=== PATIENT | female | born 1960 | race Caucasian/White ===

== ENCOUNTER → 2018-01-11 10:22 | Outpatient (CLI) | payer MEDICAID, SELFPAY | PROVIDERS: Visit Provider Nurse Practitioner Family | DX: R10.9 Unspecified abdominal pain (principal) | CPT/HCPCS: 87086 ==

== ENCOUNTER → 2018-01-15 14:16 | Outpatient (REF) | payer MEDICAID, SELFPAY ==
[2018-01-15 18:22] LABS: Basophils # 0.1 K/mm3 (0-0.2); Basophils % 0.8 % (0.1-2.0); Eosinophils # 0.2 K/mm3 (0.0-0.4); Eosinophils % 1.9 % (0.1-12.0); Hematocrit 37.4 % (37.0-47.0); Lymphocytes # 2.9 K/mm3 (0.7-4.5); Lymphocytes % 35.1 K/mm3 (10-50); Mean Corpuscular HGB Conc 32.1 g/dL (31.8-35.4); Mean Corpuscular Hemoglobin 29.1 pg (27.0-31.2); Mean Corpuscular Volume 90.6 fl (81-99); Monocytes # 0.5 K/mm3 (0.1-1.0); Monocytes % 5.7 % (1.7-9.3); Neutrophils # 4.7 K/mm3 (1.8-7.8); Neutrophils % 56.6 % (37.0-80.0); Platelet Count 282 K/mm3 (142-424); Red Blood Count 4.13 M/mm3 (4.20-5.40); Red Cell Distribution Width 13.1 % (11.5-17.5); White Blood Count 8.4 K/mm3 (4.8-10.8)
[2018-01-15 18:23] LABS: Alanine Aminotransferase 28 U/L (12-78); Albumin Level 3.6 gm/dL (3.4-5.0); Alkaline Phosphatase 102 U/L (46-116); Amylase 48 U/L (25-125); Anion Gap 9.8 mEq/L (5-15); Aspartate Amino Transferase 11 U/L (15-37); Bilirubin,Total 0.2 mg/dL (0.2-1.0); Blood Urea Nitrogen 15 mg/dL (7-18); Calcium 9.1 mg/dL (8.5-10.1); Carbon Dioxide 34 mmol/L (21.0-32.0); Chloride 105 mmol/L (98-107); Creatinine,Serum 0.66 mg/dL (0.55-1.02); Estimated Glomerular Filt Rate 92 ml/min (>60); GFR (African American) 112 ML/MIN (>60); Globulin 3.6 gm/dl (1.3-3.2); Glucose 108 mg/dL (74-106); Lipase 154 u/L (73-393); Potassium 3.8 mmoL/L (3.5-5.1); Sodium 145 mmol/L (136-145); Total Protein,Serum 7.2 gm/dL (6.4-8.2)
== END ==
LOC: LAB 14:16
PROVIDERS: Visit Provider Emergency Medicine
DX: R10.9 Unspecified abdominal pain (principal)
CPT/HCPCS: 80053; 82150; 83690; 85025

== ENCOUNTER → 2018-06-03 17:55 | Outpatient (CLI) | payer MEDICAID, SELFPAY | PROVIDERS: Visit Provider Nurse Practitioner Family | DX: R30.9 Painful micturition, unspecified (principal) | CPT/HCPCS: 87086 ==

== ENCOUNTER → 2018-09-25 09:03 | Outpatient (CLI) | payer MEDICAID, SELFPAY ==
--- NOTE | 2018-09-25 09:04 | US_ITS ---
US abdomen complete HISTORY: ITS.REASON: abd pain ORDERING PHYSICIAN: Valencia Gutierrez APRN PATIENT AGE: 57 years COMPARISON: None FINDINGS: PANCREAS:Unremarkable. No obvious mass or abnormal fluid collection. No ductal dilatation LIVER:No focal liver lesions demonstrated. Homogeneous echogenicity. No intrahepatic biliary ductal dilatation evident RIGHT KIDNEY:Unremarkable. Normal size and echogenicity. No hydronephrosis LEFT KIDNEY:Unremarkable. No hydronephrosis. Normal size and echogenicity. GALLBLADDER:Postcholecystectomy change. Common bile duct is normal at 6 mm. AORTA:No evidence of aneurysmal dilatation. SPLEEN:Unremarkable. Normal size and echogenicity ASCITES:None demonstrated. IMPRESSION: Unremarkable abdominal ultrasound. Prior cholecystectomy
[2018-09-25 12:12] LABS: Basophils # 0.1 K/mm3 (0-0.2); Basophils % 0.6 % (0.1-2.0); Eosinophils # 0.2 K/mm3 (0.0-0.4); Eosinophils % 2.1 % (0.1-12.0); Hematocrit 42.5 % (37.0-47.0); Hemoglobin 13.6 g/dL (12.2-16.2); Lymphocytes # 2.4 K/mm3 (0.7-4.5); Lymphocytes % 30.7 % (10-50); Mean Corpuscular Hemoglobin 28.3 pg (27.0-31.2); Mean Corpuscular Volume 88.5 fl (81-99); Mean Platelet Volume 7.5 fl (7.4-10.4); Monocytes # 0.5 K/mm3 (0.1-1.0); Monocytes % 5.9 % (1.7-9.3); Neutrophils # 4.7 K/mm3 (1.8-7.8); Neutrophils % 60.7 % (37.0-80.0); Platelet Count 256 K/mm3 (142-424); Red Cell Distribution Width 13.1 % (11.5-17.5); White Blood Count 7.8 K/mm3 (4.8-10.8)
== END ==
PROVIDERS: PCP Nurse Practitioner Family; Visit Provider Nurse Practitioner Family
DX: R10.9 Unspecified abdominal pain (principal); R19.7 Diarrhea, unspecified
CPT/HCPCS: 36415; 76700; 85025

== ENCOUNTER → 2018-12-30 09:47 | Outpatient (CLI) | payer MEDICAID, SELFPAY ==
--- NOTE | 2018-12-30 10:09 | XR_ITS ---
PROCEDURE: XR SHOULDER RT MIN 2V CLINICAL INDICATION: pain Right shoulder pain COMPARISON: [id number] VIEWS from 05/21/2015 FINDINGS: No fracture, dislocation, lytic change, or blastic change evident. No significant degenerative change IMPRESSION: No acute findings. Dictated by: Shady Gagnon MD 12/30/2018 12:45 Electronically signed by Shady Gagnon MD in [place] 12/30/2018 12:45
--- NOTE | 2018-12-30 10:09 | XR_ITS ---
PROCEDURE: XR CERVICAL SPINE 2V CLINICAL INDICATION: pain, right neck and shoulder pain COMPARISON: No exams were available for comparison FINDINGS: There is minimal anterolisthesis of C4 on C5 of approximately 1-2 mm. The disc spaces are well preserved. There is narrowing of the foramen on the right at C4-C5 from facet and uncovertebral hypertrophy there is mild right-sided foraminal narrowing at C3-C4. no fracture or dislocation. No lytic or blastic change. Facet hypertrophic changes are present at C4-5 and 6. There is some mild left-sided carotid calcification IMPRESSION: Mild cervical spondylosis with right-sided foraminal narrowing at C4-C5 and to lesser degree at C3-C4 Dictated by: Shady Gagnon MD 12/30/2018 12:45 Electronically signed by Shady Gagnon MD in [place] 12/30/2018 12:45
== END ==
PROVIDERS: PCP Emergency Medicine; Visit Provider Nurse Practitioner Family
DX: M25.511 Pain in right shoulder (principal); M54.2 Cervicalgia
CPT/HCPCS: 72040; 73030

== ENCOUNTER → 2018-12-30 11:20 | Outpatient (CLI) | payer MEDICAID, SELFPAY ==
[2018-12-30 13:01] LABS: Free T4 (Free Thyroxine) 0.91 ng/dl (0.76-1.46); Thyroid Stimulating Hormone 1.32 uIU/ml (0.358-3.740)
[2018-12-31 06:51] LABS: Vitamin D 25 Hydroxy 22.5 ng/mL (30.0-100.0)
== END ==
PROVIDERS: Visit Provider Nurse Practitioner Family
DX: M25.511 Pain in right shoulder (principal); M54.2 Cervicalgia; M79.671 Pain in right foot; M79.672 Pain in left foot; R07.9 Chest pain, unspecified; E55.9 Vitamin D deficiency, unspecified; Z79.899 Other long term (current) drug therapy
CPT/HCPCS: 36415; 82652; 84439; 84443

== ENCOUNTER → 2019-01-13 10:12 | Outpatient (CLI) | payer MEDICAID, SELFPAY ==
[2019-01-13 14:50] LABS: C-Reactive Protein 0.6 mg/dL (0.0-0.9)
[2019-01-13 15:34] LABS: Erythrocyte Sedimentation Rate 27 mm/hr (0-30)
[2019-01-14 07:08] LABS: RA Latex Turbid. <10.0 IU/mL (0.0-13.9)
[2019-01-14 13:17] LABS: Anti-Centromere B Antibodies <0.2 AI (0.0-0.9); Anti-Jo-1 <0.2 AI (0.0-0.9); Anti-Smith Antibody <0.2 AI (0.0-0.9); Antichromatin Antibodies 0.3 AI (0.0-0.9); Antiscleroderma-70 Antibodies <0.2 AI (0.0-0.9); RNP Antibodies <0.2 AI (0.0-0.9); Sjogren's Anti-SS-A <0.2 AI (0.0-0.9); Sjogren's Anti-SS-B <0.2 AI (0.0-0.9)
[2019-01-14 15:14] LABS: PTT-LA 36.2 sec (0.0-51.9); dRVVT 36.6 sec (0.0-47.0)
[2019-01-16 06:10] LABS: Anti-DNA (DS) Ab Qn <1 IU/mL (0-9)
[2019-01-16 06:11] LABS: Anti-Cyclic Citrullinated Pept 10 units (0-19); Lupus Reflex Interpretation Comment: (.)
== END ==
PROVIDERS: Visit Provider Nurse Practitioner Family
DX: M25.511 Pain in right shoulder (principal)
CPT/HCPCS: 36415; 85613; 85651; 86140; 86200; 86225; 86235; 86431

== ENCOUNTER → 2019-01-28 13:28 | Outpatient (CLI) | payer MEDICAID, SELFPAY ==
--- NOTE | 2019-01-28 13:30 | CA_ITS ---
APPROVED REPORT EXAM: Comprehensive 2D, Doppler, and color-flow Echocardiogram Exercise Science Internship: Liss Justice RDCS Ht: 5 ft 7 in Wt: 264lbs BSA: 2.28 BP: 132/77 mmHg Indications: Chest Pain, Hypertension/HDD 2D Dimensions LVOT 2.00 cm (M/F) 1.5-2.5 M-Mode Dimensions RVDd 1.80 cm (0.9-2.6) LA Diam 3.20 cm (1.9-4.0) LVDd 5.90 cm (3.5-5.7) Ao Diam 3.20 cm (2.0-3.7) LVDs 4.50 cm (3.5-5.7) AV Cusp 1.60 cm (1.5-2.6) IVSd 0.90 cm (0.6-1.1) PWd 1.00 cm (0.6-1.1) EF (Teich) 46.60% FS 23.70% EDV (Teich) 173.00 mL ESV (Teich) 92.40 mL LV Diastology E/A Ratio 1.0 MED E' 7.51 (< 7 cm/sec) E'/MED E' Ratio 10.30 (>14) LAT E' 12.60 (<10 cm/sec) E/LAT E' Ratio 6.20 (>14) Mitral Valve MV E Max Warren. 77.50 (40-130 cm/s) MV A Velocity 77.00 (40-130 cm/s) E/A Ratio 1.00 Tricuspid Valve TR P. Velocity 234.00 cm/s RAP Estimate 10.00 mmHg RVSP 32.00 mmHg Left Ventricle Left atrium is mildly enlarged, left ventricle is normal size, mild concentric left ventricular hypertrophy, visually estimated ejection fraction 55% with no regional wall motion abnormality. Grade 1 diastolic dysfunction seen without tissue Doppler evidence of raise left atrial pressure. Right Ventricle Right atrium and right ventricle are normal size and contractility. Aortic Valve Aortic valve is minimally thickened and fibrosed. There is no aortic stenosis aortic insufficiency. Mitral Valve Mitral valve is grossly normal, there is mild mitral regurgitation. Tricuspid Valve Tricuspid valve is grossly normal, there is mild tricuspid regurgitation. Pulmonic Valve Pulmonic valve is poorly visualized. Great Vessels Aortic root is normal size. Pericardium No significant pericardial effusion noted. Conclusion 1. Mildly enlarged left atrium, normal left ventricular size, mild concentric left ventricular hypertrophy, visually estimated ejection fraction 55% with no regional wall motion abnormality, grade 1 diastolic dysfunction seen without tissue Doppler evidence of raise left atrial pressure. 2. Mild mitral and tricuspid regurgitation 3. No significant pericardial effusion noted. Electronically signed by : [place], 01/29/2019 06:20:10
== END ==
PROVIDERS: PCP Emergency Medicine; Visit Provider Urology
DX: R07.89 Other chest pain (principal); I10 Essential (primary) hypertension
CPT/HCPCS: 93306

== ENCOUNTER → 2019-02-28 09:15 | Outpatient (CLI) | payer MEDICAID, SELFPAY ==
--- NOTE | 2019-02-28 09:16 | CA_ITS ---
APPROVED REPORT Exam: Exercise Treadmill Technologist: jaison feliciano, Ht: 5 ft 7 in Wt: 260 lbs BSA: 2.26 m2 HR: 58 bpm BP: 118/68 mmHg Rhythm: NSR,INFERIOR Q WAVES Indications: CP Medical History Medical History: HTN Medications: Propranolol,,,,, ZanTAC,,,,, Sumatriptan,,,,, Vit D2,,,,, OSEltamivir,,,,, Allergies: HYDROCODONE,PCN Cardiac Risk Factors: HTN Stress Test Details Test: Dk HR Resting HR: 64 bpm Max Heart Rate (APMHR): 162 bpm Max HR Achieved: 166 bpm Target HR (85% APMHR): 137 bpm % of APMHR: 102 Recovery HR: 85 bpm BP Resting BP: 118.0/68.0 mmHg Max BP: 138.0/77.0 mmHg Recovery BP: 174.0/84.0 mmHg ECG Resting ECG: NSR,INFERIOR Q WAVES Clinical Reason for Termination: Dyspnea Exercise duration: 06:00 min Highest Stage Achieved: Exercise capacity: 7.0 METs Stress ECG Conclusion EXERCISED 6:00 ONBRUCE PROTOCOL WITH MAX HEART RATE OF 138 WHICH IS 100% OF PM FOR AGE. METS + 7.0. NO CHEST PAIN. [address]-T CHANGES. NEGATIVE TEST. Electronically signed by : [place], 03/01/2019 12:04:49
== END ==
PROVIDERS: PCP Emergency Medicine; Visit Provider Physician Assistant
DX: R07.89 Other chest pain (principal); I10 Essential (primary) hypertension
CPT/HCPCS: 93017

== ENCOUNTER 2020-01-25 15:51 | Emergency (ER) | payer MEDICAID, SELFPAY ==
[2020-01-25 16:22] VITALS: BP 120/78; PULSE 66; RESP 19; TEMP 36.9; O2SAT 99; BMI 41.1
[2020-01-25 16:32] LABS: Apearance,Urine Clear (Clear); Color,Urine Yellow (Yellow); PH,Urine 5.5 (5.0-8.5)
[2020-01-25 16:33] LABS: Bilirubin,Urine Negative (Negative); Blood, Urine Negative (Negative); Glucose,Urine (UA) Negative (Negative); Ketones,Urine Negative (Negative); Protein,Urine Negative (Negative); UTC Leukocyte Esterase,Urine Negative (Negative); UTC Nitrate,Urine Negative (Negative); Urobilinogen,Urine 0.2 EU/dl (0.2)
--- NOTE | 2020-01-25 16:54 | HMH.EDUTC ---
[facility] [facility] [place] Clinical Impression: Colitis Abdominal pain Qualifiers: Abdominal location: unspecified location Qualified Code(s): R10.9 - Unspecified abdominal pain Disposition: Home, Self-Care Condition on Discharge: Good Instructions: DI for Colitis Additional Instructions: Follow up with Dr. Lagos tomorrow as discussed. Return for any problems. GO TO THE ER FOR ANY WORSENING SYMPTOMS OR CONCERNS Prescriptions: Ondansetron [Zofran 4mg ODT] 4 mg PO Q8HP PRN #20 tab.rapdis PRN Reason: Nausea Transmission Status: Received by Mad Mimi # Ciprofloxacin HCl [Ciprofloxacin 250mg Tab] 250 mg PO BID 10 Days #20 tab Transmission Status: Received by Mad Mimi # metroNIDAZOLE [Metronidazole] 250 mg PO BID 10 Days #20 tab Transmission Status: Received by Mad Mimi # Referrals: Jerod Lagos MD [Primary Care Provider] - Time of Disposition: 17:36 Medical Decision Making - Medical Records Medical records reviewed: No: I reviewed the patient's medical records. - Olu Inquiry Pt receiving controlled substance: No Vital Signs: 01/25/20 16:22 01/25/20 17:35 Temperature 98.4 F 98.4 F Temperature Source Oral Pulse Rate 66 Pulse Rate [Right Brachial] 66 Respiratory Rate 19 19 Blood Pressure 120/78 Blood Pressure [Right Arm] 120/78 Blood Pressure Mean [Right Arm] 92 Blood Pressure Source [Right Arm] Automatic Cuff Blood Pressure Position [Right Arm] Sitting 02 Sat by Pulse Oximetry 99 Oxygen Delivery Method Room Air - Lab Data Lab results reviewed: Yes: I reviewed the patient's lab results. Lab Results 01/25/20 15:57: Urine Color Yellow, Urine Appearance Clear, Urine pH 5.5, Ur Specific [place] 1.010, Urine Protein Negative, Urine Glucose (UA) Negative, Urine Ketones Negative, Urine Blood Negative, Urine Nitrate Negative, Urine Bilirubin Negative, Urine Urobilinogen 0.2, Ur Leukocyte Esterase Negative [facility] [place] - General Stated complaint: possible uti Time Seen by Provider: 01/25/20 16:30 Mode of Arrival: Ambulatory Source of Information: Patient Limitations: No Limitations Description of Symptoms (Recalled from Triage Doc. by RN): PATIENT C/O DIARRHEA AND FREQUENT URINATION X 2 DAYS HEENT Symptoms (Recalled from RN notes): No Resp Symptoms (Recalled from RN notes): No Skin Symptoms (Recalled from RN notes): No MS Symptoms (Recalled from RN notes): No Functional Status (Recalled from RN notes): WNL - History of Present Illness Provider Complaint: She c/o lower abdominal pain and low back pain since yesterday. - Related Data Previous Rx's Medication Instructions Recorded Fluticasone Propionate [Flonase 2 spr NS DAILY #1 bottle 05/30/18 50mcg nasal spray 16gm] cetirizine 10 mg capsule 10 mg PO DAILY #30 cap 05/31/18 angcmmezozsqtyx-xtuqbpaofroepsc-BA 10 ml PO Q4-6H PRN #200 ml 05/16/19 2 mg-30 mg-10 mg/5 mL oral syrup ranitidine HCl 150 mg tablet 150 mg PO DAILY #90 tab 07/09/19 albuterol sulfate 90 mcg/actuation 1 puff INHALATION Q4-6H PRN #18 g 09/03/19 aerosol inhaler ergocalciferol (vitamin D2) 1,250 See Rx Instructions .ROUTE 09/03/19 mcg (50,000 unit) capsule .COMPLEX #4 cap propranolol 60 mg capsule,24 60 mg PO DAILY #90 cap 09/03/19 hr,extended release sumatriptan succinate 50 mg tablet 50 mg PO DAILY PRN #10 tab 09/03/19 albuterol sulfate 2.5 mg INHALATION NEEDED PRN 09/23/19 #180 ml vitamin-ferrous fumarate 1 tab PO DAILY #90 tab 09/23/19 28 mg iron-folic acid 800 mcg tablet Ciprofloxacin HCl [Ciprofloxacin 250 mg PO BID 10 Days #20 tab 01/25/20 250mg Tab] Ondansetron [Zofran 4mg ODT] 4 mg PO Q8HP PRN #20 tab.rapdis 01/25/20 metroNIDAZOLE [Metronidazole] 250 mg PO BID 10 Days #20 tab 01/25/20 Allergies Allergy/AdvReac Type Severity Reaction Status Date / Time hydrocodone [HYDROCODONE] Allergy Unknown Verified 05/16/19 11:15 Penicillins [PENICILLINS] Allergy
[2020-01-25 17:35] VITALS: BP 120/78; PULSE 66; RESP 19; TEMP 36.9; O2SAT 99
== END 2020-01-25 17:38 | disposition home or self-care (01) ==
PROVIDERS: Emergency Provider Nurse Practitioner Family; PCP Emergency Medicine
DX: K52.9 Noninfective gastroenteritis and colitis, unspecified (principal); G43.709 Chronic migraine without aura, not intractable, without status migrainosus; F41.8 Other specified anxiety disorders; K21.9 Gastro-esophageal reflux disease without esophagitis; I10 Essential (primary) hypertension; Z87.442 Personal history of urinary calculi; Z88.0 Allergy status to penicillin; Z88.5 Allergy status to narcotic agent; Z79.899 Other long term (current) drug therapy; Z90.49 Acquired absence of other specified parts of digestive tract
CPT/HCPCS: 81003; 99201

== ENCOUNTER → 2020-02-03 13:53 | Outpatient (CLI) | payer MEDICAID, SELFPAY ==
[2020-02-03 15:41] LABS: Anion Gap 12.4 mEq/L (5-15); Blood Urea Nitrogen 13 mg/dl (7-17); Calcium 9.3 mg/dl (8.4-10.2); Carbon Dioxide 32 mmol/L (22.0-30.0); Chloride 101 mmol/L (98-107); Estimated Glomerular Filt Rate 102 ml/min (>60); GFR (African American) 124 ML/MIN (>60); Glucose 96 mg/dl (74-100); Potassium 4.4 mmoL/L (3.5-5.1); Sodium 141 mmol/L (136-145)
== END ==
PROVIDERS: Visit Provider Nurse Practitioner Family
DX: Z01.818 Encounter for other preprocedural examination (principal)
CPT/HCPCS: 36415; 80048

== ENCOUNTER → 2020-02-04 09:13 | Outpatient (CLI) | payer MEDICAID, SELFPAY ==
--- NOTE | 2020-02-04 09:22 | CT_ITS ---
PROCEDURE: CT ABDOMEN PELVIS WO CON CLINICAL INDICATION: Abd pain Left-sided abdominal pain COMPARISON: No exams were available for comparison TECHNIQUE: Axial images obtained with sagittal and coronal reformats. All CT scans at the facility use one or more dose reduction, viz: automated exposure control, ma/kV adjustment per patient size (including targeted exams where dose is matched to indication, i.e. head), or iterative reconstruction technique. FINDINGS: LOWER THORAX: No acute finding ABDOMEN & PELVIS: Prior cholecystectomy. Small hiatal hernia. The spleen, adrenal glands, and pancreas have an unremarkable appearance. There is increased soft tissue density in the fundal region of the stomach posteriorly. While this could be due to nondistention, 1 cannot exclude the possibility of a mass at this area. Upper endoscopy or upper GI may provide further evaluation No renal or ureteral calculi. No hydronephrosis. No intestinal obstruction or free air. There is a small umbilical hernia containing fat. Suspect postsurgical changes anterior abdominal wall. There is some stranding of the fat just beneath the hernia within the anterior abdominal area which is nonspecific. There is diverticulosis of the colon. There is some minimal haziness of the pericolic fat in the pelvic region. This is nonspecific but could be seen with some mild diverticulitis although no obvious colonic wall thickening is evident. Exam is somewhat limited without IV and oral contrast. The uterus is anteverted. Degenerative changes are present in the lumbar spine. IMPRESSION: 1. Colonic diverticulosis with mild stranding of the pericolic fat in the pelvic region. Mild diverticulitis is a consideration. 2. Small umbilical hernia containing fat with suspected postsurgical changes of the anterior abdominal wall. Minimal stranding of the fat just beneath the anterior abdominal wall at the umbilical area. 3. Slight increased soft tissue density in the fundal region of the stomach possibly due to nondistention versus fundal mass. Upper endoscopy or upper GI recommended for further evaluation. Dictated by: Shady Gagnon MD 02/05/2020 07:38 Shady Gagnon MD in [place] 02/05/2020 07:38
== END ==
PROVIDERS: PCP Emergency Medicine; Visit Provider Nurse Practitioner Family
DX: R10.9 Unspecified abdominal pain (principal)
CPT/HCPCS: 74176

== ENCOUNTER → 2020-04-18 16:05 | Outpatient (CLI) | payer MEDICAID, SELFPAY ==
[2020-04-18 16:49] LABS: Basophils # 0.1 K/mm3 (0-0.2); Basophils % 0.8 % (0.1-2.0); Eosinophils # 0.2 K/mm3 (0.0-0.4); Eosinophils % 2.3 % (0.1-12.0); Hematocrit 42.2 % (37.0-47.0); Lymphocytes # 2.9 K/mm3 (0.7-4.5); Lymphocytes % 32.4 % (10-50); Mean Corpuscular HGB Conc 33.1 g/dL (31.8-35.4); Mean Corpuscular Hemoglobin 29.8 pg (27.0-31.2); Mean Corpuscular Volume 89.8 fl (81-99); Mean Platelet Volume 7.8 fl (7.4-10.4); Monocytes # 0.4 K/mm3 (0.1-1.0); Monocytes % 4.2 % (1.7-9.3); Neutrophils # 5.4 K/mm3 (1.8-7.8); Neutrophils % 60.3 % (37.0-80.0); Platelet Count 303 K/mm3 (142-424); White Blood Count 8.9 K/mm3 (4.8-10.8)
[2020-04-19 09:53] LABS: Coronavirus 19 IgG Antibody Negative (Negative); Coronavirus 19 IgM Antibody Negative (Negative)
== END ==
PROVIDERS: Internal Medicine Gastroenterology; PCP Family Medicine; Visit Provider Family Medicine
DX: Z01.812 Encounter for preprocedural laboratory examination (principal); Z11.52 Encounter for screening for COVID-19; Z13.810 Encounter for screening for upper gastrointestinal disorder; R10.9 Unspecified abdominal pain
CPT/HCPCS: 36415; 85025; 86328

== ENCOUNTER 2020-04-19 09:01 | Day surgery (SDC) | payer MEDICAID, SELFPAY ==
[2020-04-19 09:30] VITALS: BP 146/68; PULSE 63; RESP 18; TEMP 36.3; O2SAT 99; BMI 41.5
[2020-04-19 10:15] VITALS: O2SAT 97
--- NOTE | 2020-04-19 10:18 | P.PN_ITS ---
[facility] Anesthesia Checklist - Patient Identification Patient Identification: Arm Band - Structural Data Admitted From: Home Planned Operative Procedure/s: egd Consent for Planned Operative Procedure(s) Verified: Yes Verified Documents: Surgical Consent, History and Physical - NPO Status Verified Time NPO: 00:00 - Additional verifications Anesthesia Reactions: No - Airway Assessment C-Spine Mobility Assessed: Yes (mp2) TMJ Mobility Assessed: Yes Dentition: Good Dentition - Neurological Assessment Level of Consciousness: Awake, Alert - Anesthesia Plan Anesthesia Risk discussed: Yes Anesthesia Plan: Verified ASA Class: II Anesthesia Type: MAC [facility] History I have reviewed the patient's past medical history: Yes Medical History: Reports:: Anxiety, Asthma, Depression, Gastroesophageal Reflux Disease(GERD), Hypertension, Kidney Stones, Migraine Denies:: Cancer, Diabetes Mellitus Type 1, Diabetes Mellitus Type 2, Internal Pacemaker, MRSA, Seizures *Have you ever received a pneumonia vaccine?: No *Have you received a flu vaccine this season?: No Other Medical History: Reports: Arthritis Anesthesia experience/problems:: nac Other Surgeries: Yes: Cholecystectomy, , Hernia Repair. No: Pacemaker Amputation: No Fractures: Yes - *Social History Last grade of school completed: High school graduate Smoking Status: Never smoker Alcohol Intake: never Substance Use Type: denies use *Occupational Status:: unemployed Housing: house Household Members: spouse *Travel in the last 8 weeks: None - Psychiatric History Pschychiatric History:: Reports:: Anxiety, Depression Family Hx:: Asthma, Heart Attack
--- NOTE | 2020-04-19 10:34 | P.PCN_ITS ---
[facility] Procedure Note Procedure Note:: Upper Endoscopy Procedure Report: Esophagogastroduodenoscopy with cold biopsies and TTS balloon dilation Endoscopost: Osmin Arceo II, MD Referring Physician: ROCK Molina/Andrew Hwang MD Date of Procedure: April 19, 2020 Equipment: Olympus GIF 180 standard upper endoscope Sedation: MAC sedation Indications: Mrs. Guajardo is a 59-year-old female with epigastric abdominal pain and discomfort. She has had some gassiness and belching. She reports minor nausea and some early satiety. She has rare dysphagia. The patient did have a CT scan of the abdomen and pelvis on February 05, 2020. There was a small umbilical hernia containing fat. There was also a slightly increased soft tiss ue density in the fundal region of the stomach possibly secondary to nondistention versus mass. The patient reports no melena or weight loss. She has chronic heartburn but does not take PPI therapy. She does report some bowel irregularity with diarrhea that alternates to regular. She had some bright red rectal bleeding a month ago and does report some occasional hemorrhoid bleeding. She has never had upper endoscopy or colonoscopy. Procedure: Prior to the procedure, a history and physical exam was performed, and patient's medications and allergies were reviewed. The risks, benefits and alternatives of the sedation and procedure were discussed with the patient. All questions were answered and informed consent was obtained. The patient was brought to the procedure room. Patient identification and proposed procedure were verified by the physician and the nurse. The patient was placed in a left lateral decubitus position and the scope was passed under direct vision. Throughout the procedure, the patient's blood pressure, pulse, and oxygen saturations were monitored continuously. The upper GI endoscopy was accomplished without difficulty. The patient tolerated the procedure well. Findings: The scope was passed directly into the upper esophagus and advanced to the third portion of the duodenum. The post bulbar duodenum was primarily normal. There was some scalloping of the conniventes and cold biopsies were obtained. The bulb and pylorus were normal. The scope was then withdrawn into the stomach. There was some linear reactive gastropathy of the antrum and body of the stomach. The remainder of the antrum, body and fundus of the stomach were grossly normal. Upon retroflexion there was a medium size 2 to 3 cm hiatal hernia. 2 biopsies were taken in the antrum and along the lesser curvature for histology to rule out gastritis and/or H pylori. The scope was then withdrawn into the esophagus. There was grade A (LA classification) reflux esophagitis. There were tertiary contractions and evidence of moderate esophageal dysmotility. The entire esophagus was dilated to 60 Green[place]/20 mm with a TTS hydrostatic balloon. The remainder of the esophageal mucosa was normal. Impression: 1. Grade A reflux esophagitis (LA classification) with moderate esophageal dysmotility and medium size 2 to 3 cm hiatal hernia (sliding) 2. Linear reactive gastropathy Plan: I will follow-up the biopsies. The patient does have functional dyspepsia. We will discuss additional treatment options.
[2020-04-19 10:35] VITALS: BP 112/71; PULSE 67; RESP 18; TEMP 36.3; O2SAT 94
[2020-04-19 10:45] VITALS: BP 114/73; PULSE 59; RESP 18; O2SAT 97
[2020-04-19 10:55] VITALS: BP 99/62; PULSE 58; RESP 18; O2SAT 96
[2020-04-19 11:14] VITALS: BP 131/89; PULSE 56; RESP 18; O2SAT 100
== END 2020-04-19 11:31 | disposition home or self-care (01) ==
PROVIDERS: PCP Emergency Medicine; Visit Provider Internal Medicine Gastroenterology
PROC: 0DJ08ZZ Inspection of Upper Intestinal Tract, Via Natural or Artificial Opening Endoscopic (ICD-10-PCS; CPT 43235; principal; 2020-04-19 10:30)
DX: K21.9 Gastro-esophageal reflux disease without esophagitis; K22.4 Dyskinesia of esophagus; K44.9 Diaphragmatic hernia without obstruction or gangrene; K31.9 Disease of stomach and duodenum, unspecified; K30 Functional dyspepsia; I10 Essential (primary) hypertension; J45.909 Unspecified asthma, uncomplicated; Z88.6 Allergy status to analgesic agent; Z88.0 Allergy status to penicillin
CPT/HCPCS: 43239; 43249; C1726

== ENCOUNTER 2020-10-25 00:08 | Emergency (ER) | payer MEDICAID, SELFPAY ==
[2020-10-25 00:36] VITALS: BP 125/77; PULSE 76; RESP 20; TEMP 36.8; O2SAT 97; BMI 41.5
--- NOTE | 2020-10-25 00:49 | CT_ITS ---
PROCEDURE INFORMATION: Exam: CT Abdomen And Pelvis With Contrast Exam date and time: 10/25/2020 12:49 AM Age: 59 years old Clinical indication: Abdominal pain; Localized; Patient HX: Lower abd pain with radiating to left side, diarrhea for 5 days, PT noticed some blood in toilet today TECHNIQUE: Imaging protocol: Computed tomography of the abdomen and pelvis with contrast. Radiation optimization: All CT scans at this facility use at least one of these dose optimization techniques: automated exposure control; mA and/or kV adjustment per patient size (includes targeted exams where dose is matched to clinical indication); or iterative reconstruction. Contrast material: ISOVUE; Contrast volume: 75 ml; Contrast route: IV; COMPARISON: CT ABDOMEN PELVIS WO CON 02/04/2020 10:20 AM FINDINGS: Mediastinal space: Small-sized hiatal hernia. Liver: Normal. Gallbladder and bile ducts: Gallbladder surgically absent. Pancreas: Normal. Spleen: Normal. Adrenal glands: Normal. No mass. Kidneys and ureters: Normal. Stomach and bowel: Colonic diverticulosis, with acute diverticulitis involving the mid and distal sigmoid colon, where there is mild wall thickening and adjacent associated inflammatory stranding. No perforation or abscess. Appendix: No evidence of appendicitis. Intraperitoneal space: Unremarkable. No free air. No significant fluid collection. Vasculature: Phleboliths within the pelvis. Lymph nodes: Unremarkable. No enlarged lymph nodes. Urinary bladder: Unremarkable as visualized. Reproductive: Uterus is surgically absent. Bones/joints: Multilevel thoracolumbar spine degenerative disc space narrowing and osteophyte formation. Soft tissues: Small fat containing periumbilical hernia. Small bilateral fat containing inguinal hernias. IMPRESSION: Colonic diverticulosis, with acute diverticulitis involving the mid and distal sigmoid colon, where there is mild wall thickening and adjacent associated inflammatory stranding. No perforation or abscess.
[2020-10-25 01:03] LABS: Basophils # 0.1 K/mm3 (0-0.2); Basophils % 0.7 % (0.1-2.0); Eosinophils # 0.1 K/mm3 (0.0-0.4); Eosinophils % 1.3 % (0.1-12.0); Hematocrit 37.6 % (37.0-47.0); Hemoglobin 12.5 g/dL (12.2-16.2); Mean Corpuscular HGB Conc 33.3 g/dL (31.8-35.4); Mean Corpuscular Hemoglobin 28.8 pg (27.0-31.2); Mean Corpuscular Volume 86.5 fl (81-99); Mean Platelet Volume 7.5 fl (7.4-10.4); Monocytes # 0.6 K/mm3 (0.1-1.0); Monocytes % 5.9 % (1.7-9.3); Neutrophils # 5.8 K/mm3 (1.8-7.8); Neutrophils % 61.2 % (37.0-80.0); Platelet Count 227 K/mm3 (142-424); Red Blood Count 4.35 M/mm3 (4.20-5.40); Red Cell Distribution Width 13.9 % (11.5-17.5); White Blood Count 9.5 K/mm3 (4.8-10.8)
[2020-10-25 01:08] LABS: Alanine Aminotransferase 28 U/L (12-78); Albumin Level 4.3 g/dl (3.5-5.0); Albumin/Globulin Ratio 1.3 (1.1-1.8); Alkaline Phosphatase 78 U/L (38-126); Amylase 68 U/L (30-110); Anion Gap 12.5 mEq/L (5-15); Aspartate Amino Transferase 37 U/L (14-36); Bilirubin,Total 0.3 mg/dl (0.2-1.3); Blood Urea Nitrogen 14 mg/dl (7-17); Calcium 8.9 mg/dl (8.4-10.2); Carbon Dioxide 32 mmol/L (22.0-30.0); Chloride 101 mmol/L (98-107); Creatinine Clearance Estimated 74 mL/min (50-200); Estimated Glomerular Filt Rate 73 ml/min (>60); GFR (African American) 89 ML/MIN (>60); Globulin 3.2 g/dL (1.3-3.2); Glucose 113 mg/dl (74-100); Lipase 176 U/L (23-300); Potassium 3.5 mmoL/L (3.5-5.1); Sodium 142 mmol/L (136-145); Total Protein,Serum 7.5 g/dl (6.3-8.2)
[2020-10-25 01:15] LABS: C-Reactive Protein 28.3 mg/L (0-4)
[2020-10-25 01:24] VITALS: BP 145/77; PULSE 71; O2SAT 96
[2020-10-25 01:28] LABS: Procalcitonin 0.056 ng/mL (0.0-2.0)
[2020-10-25 01:31] LABS: Microscopic, Urine URINE MICROSCOPIC (MICROSCOPIC)
[2020-10-25 01:51] LABS: Appearance,Urine CLEAR (Clear); Bilirubin,Urine Negative (Negative); Blood, Urine 2+ (Negative); Color,Urine STRAW (Yellow); Glucose,Urine (UA) Negative (Negative); Ketones,Urine Negative (Negative); Leukocyte Esterase,Urine 1+ (Negative); Nitrate,Urine Negative (Negative); PH,Urine 6.5 (5.0-8.5); Protein,Urine Negative (Negative); Specific Gravity, Urine <= 1.005 (1.005-1.030); Urobilinogen,Urine 0.2 EU/dl (0.2)
[2020-10-25 01:52] LABS: Erythrocyte Sedimentation Rate 39 mm/hr (0-30)
[2020-10-25 01:59] LABS: Bacteria,Urine Trace /lpf; RBC,Urine Occasional #/hpf (0-3); Squamous Epithelial Cell,Urine Occasional #/hpf (0-5)
[2020-10-25 02:00] VITALS: BP 137/84; PULSE 72; O2SAT 98
--- NOTE | 2020-10-25 02:20 | HMH.EDNVD ---
ED Disposition Clinical Impression: Diverticulitis Disposition: Home, Self-Care Condition on Discharge: Good Instructions: DI for Diverticulitis Additional Instructions: use meds and see pcp for follow up Prescriptions: levoFLOXacin [Levaquin 500mg tab] 500 mg PO DAILY #10 tab Transmission Status: Pending to [facility] # metroNIDAZOLE [metroNIDAZOLE 500mg Tablet] 500 mg PO TID #30 tab Transmission Status: Pending to [facility] # Referrals: Jerod Lagos MD [Primary Care Provider] - - Critical Care Critical Care Time: No Attestation: On 10/25/20, the high probability of a clinically significant, sudden or life threatening deterioration of the following system(s) required my full and direct attention, intervention and personal management. The time I documented below is in addition to time spent performing reported procedures but includes the following listed in this critical care notation. Medical Decision Making - Medical Records Medical records reviewed: Yes: I reviewed the patient's medical records. - Olu Inquiry Pt receiving controlled substance: No Vital Signs: 10/25/20 00:36 10/25/20 01:24 10/25/20 02:00 Temperature 98.2 F Temperature Source Oral Pulse Rate 71 72 Pulse Rate [Right] 76 Respiratory Rate 20 Blood Pressure 145/77 H 137/84 Blood Pressure [Right Arm] 125/77 Blood Pressure Mean [Right Arm] 93 02 Sat by Pulse Oximetry 97 96 98 Oxygen Delivery Method Room Air 10/25/20 02:31 Temperature Temperature Source Pulse Rate 71 Pulse Rate [Right] Respiratory Rate Blood Pressure 130/72 Blood Pressure [Right Arm] Blood Pressure Mean [Right Arm] 02 Sat by Pulse Oximetry 100 Oxygen Delivery Method - Lab Data Lab results reviewed: Yes: I reviewed the patient's lab results. Lab Results 10/25/20 00:30: WBC 9.5, RBC 4.35, Hgb 12.5, Hct 37.6, MCV 86.5, MCH 28.8, MCHC 33.3, RDW 13.9, Plt Count 227, MPV 7.5, Neut % (Auto) 61.2, Lymph % (Auto) 31.0, [place] % (Auto) 5.9, Eos % (Auto) 1.3, Baso % (Auto) 0.7, Neut # (Auto) 5.8, Lymph # (Auto) 3.0, [place] # (Auto) 0.6, Eos # (Auto) 0.1, Baso # (Auto) 0.1, ESR 39 H 10/25/20 00:30: Sodium 142, Potassium 3.5, Chloride 101, Carbon Dioxide 32 H, Anion Gap 12.5, BUN 14, Creatinine 0.80, Estimated Creat Clear 74, Estimated GFR 73, Est GFR ( Amer) 89, Glucose 113 H, Calcium 8.9, Total Bilirubin 0.3, AST 37 H, ALT 28, Alkaline Phosphatase 78, C-Reactive Protein 28.3 H, Total Protein 7.5, Albumin 4.3, Globulin 3.2, Albumin/Globulin Ratio 1.3, Amylase 68, Lipase 176, Procalcitonin 0.056 10/25/20 01:20: Urine Color Straw, Urine Appearance Clear, Urine pH 6.5, Ur Specific [place] <= 1.005, Urine Protein Negative, Urine Glucose (UA) Negative, Urine Ketones Negative, Urine Blood 2+, Urine Nitrate Negative, Urine Bilirubin Negative, Urine Urobilinogen 0.2, Ur Leukocyte Esterase 1+ A, Urine RBC Occasional, Urine WBC 5-10, Ur Squamous Epith Cells Occasional, Urine Bacteria Trace Result diagrams: 10/25/20 00:30 10/25/20 00:30 Orders (Tests/Meds): ED MEDICATIONS Generic Name Dose Route Start Last Admin Trade Name Freq PRN Reason Stop Dose Admin Sodium Chloride 1,000 mls @ 999 mls/hr 10/25/20 01:00 10/25/20 01:32 Sod Chlor 0.9% 1000ml Bag IV 10/25/20 02:00 999 mls/hr .Q1H1M GHANSHYAM Administration Sodium Chloride 8 ml 10/25/20 00:50 Sodium Chloride 0.9% 10ml Vial IV 11/24/20 00:49 NEEDED PRN dilute pepcid Discontinued Medications Generic Name Dose Route Start Last Admin Trade Name Freq PRN Reason Stop Dose Admin Famotidine 20 mg 10/25/20 00:50 10/25/20 02:03 Famotidine 20mg/2ml Vial IV 10/25/20 00:51 Not Given ONCE ONE Iopamidol 75 ml 10/25/20 01:47 10/25/20 01:48 Iopamidol-370 (76%);100ml Bottle IV 10/25/20 01:48 75 ml ONCE ONE Administration Ketorolac Tromethamine 30 mg 10/25/20 00:50 10/25/20 01:32 Ketorolac 30mg/Ml Vial IV
[2020-10-25 02:31] VITALS: BP 130/72; PULSE 71; O2SAT 100
[2020-10-25 04:33] VITALS: BP 129/81; PULSE 75; RESP 16; TEMP 36.8; O2SAT 99
== END 2020-10-25 04:35 | disposition home or self-care (01) ==
PROVIDERS: Emergency Provider Emergency Medicine; PCP Emergency Medicine
DX: K57.92 Diverticulitis of intestine, part unspecified, without perforation or abscess without bleeding (principal)
CPT/HCPCS: 74177; 80053; 81001; 82150; 83690; 84145; 85025; 85651; 86140; 87086; 96365; 96375; 99283; J2405; Q9967

== ENCOUNTER 2020-11-04 19:23 | Emergency (ER) | payer MEDICAID, SELFPAY ==
[2020-11-04 19:25] VITALS: BP 126/90; PULSE 79; RESP 18; TEMP 36.9; O2SAT 97; BMI 40.7
--- NOTE | 2020-11-04 19:44 | ECG_ITS ---
APPROVED REPORT Exam: Resting ECG HR:71 bpm ECG Measurements Heart Rate 71 AXES SD 146 P 70 QRSd 96 QRS 42 QT 414 T 58 QTc 449 Conclusion Normal sinus rhythm Nonspecific ST abnormality Abnormal ECG Electronically signed by : Onesimo Barrett, 11/06/2020 15:22:07
--- NOTE | 2020-11-04 19:49 | CT_ITS ---
PROCEDURE INFORMATION: Exam: CT Thoracic Spine Without Contrast Exam date and time: 11/04/20 07:49 PM Age: 59 years old Clinical indication: Pain in thoracic spine; Additional info: Pain on the right side of upper thoracic spine and pain down the left arm TECHNIQUE: Imaging protocol: Computed tomography images of the thoracic spine without contrast. Radiation optimization: All CT scans at this facility use at least one of these dose optimization techniques: automated exposure control; mA and/or kV adjustment per patient size (includes targeted exams where dose is matched to clinical indication); or iterative reconstruction. COMPARISON: CT ABDOMEN PELVIS W CON 10/25/20 01:31 AM FINDINGS: Vertebrae: Degenerative changes. No acute fracture. Normal alignment. Discs/Spinal canal/Neural foramina: No significant disc protrusion. No severe spinal canal stenosis. No significant neural foraminal narrowing. Soft tissues: Unremarkable. IMPRESSION: Unremarkable CT T-Spine.
[2020-11-04 20:12] LABS: Microscopic, Urine URINE MICROSCOPIC (MICROSCOPIC)
--- NOTE | 2020-11-04 20:13 | HMH.EDGENADL ---
ED Disposition Clinical Impression: Acute thoracic back pain Qualifiers: Back pain laterality: right Qualified Code(s): M54.6 - Pain in thoracic spine Disposition: Home, Self-Care Condition on Discharge: Good Instructions: DI for Acute Pain -- Adult Additional Instructions: call pcp for follow up next week Referrals: Jerod Lagos MD [Primary Care Provider] - - Critical Care Critical Care Time: No Attestation: On 11/04/20, the high probability of a clinically significant, sudden or life threatening deterioration of the following system(s) required my full and direct attention, intervention and personal management. The time I documented below is in addition to time spent performing reported procedures but includes the following listed in this critical care notation. Medical Decision Making - Medical Records Medical records reviewed: Yes: I reviewed the patient's medical records. - Olu Inquiry Pt receiving controlled substance: No Vital Signs: 11/04/20 19:25 11/04/20 20:40 11/04/20 21:01 Temperature 98.4 F Temperature Source Oral Pulse Rate 75 71 Pulse Rate [Right] 79 Respiratory Rate 18 Blood Pressure 152/87 H 121/73 Blood Pressure [Right Arm] 126/90 Blood Pressure Mean 108 89 Blood Pressure Mean [Right Arm] 102 02 Sat by Pulse Oximetry 97 97 98 11/04/20 21:30 Temperature Temperature Source Pulse Rate 82 Pulse Rate [Right] Respiratory Rate Blood Pressure 122/85 Blood Pressure [Right Arm] Blood Pressure Mean 95 Blood Pressure Mean [Right Arm] 02 Sat by Pulse Oximetry 97 - Lab Data Lab results reviewed: Yes: I reviewed the patient's lab results. Lab Results 11/04/20 19:45: Urine Color Yellow, Urine Appearance Clear, Urine pH 5.5, Ur Specific [place] 1.025, Urine Protein Negative, Urine Glucose (UA) Negative, Urine Ketones 1+, Urine Blood Negative, Urine Nitrate Negative, Urine Bilirubin Negative, Urine Urobilinogen 0.2, Ur Leukocyte Esterase Trace, Urine WBC 3-5, Ur Squamous Epith Cells 5-10, Amorphous Sediment 1+ 11/04/20 20:20: WBC 14.3 H, RBC 4.48, Hgb 12.7, Hct 39.2, MCV 87.3, MCH 28.3, MCHC 32.4, RDW 13.9, Plt Count 296, MPV 7.8, Neut % (Auto) 76.1, Lymph % (Auto) 19.0, [place] % (Auto) 3.8, Eos % (Auto) 0.7, Baso % (Auto) 0.4, Neut # (Auto) 10.9 H, Lymph # (Auto) 2.7, [place] # (Auto) 0.6, Eos # (Auto) 0.1, Baso # (Auto) 0.1, ESR 55 H 11/04/20 20:20: Sodium 137, Potassium 3.8, Chloride 102, Carbon Dioxide 29, Anion Gap 9.8, BUN 11, Creatinine 0.50 L, Estimated Creat Clear 226, Estimated GFR 126, Est GFR ( Amer) 153, Glucose 111 H, Calcium 9.1, Total Bilirubin 0.6, AST 20, ALT 23, Alkaline Phosphatase 82, Troponin I < 0.01, C-Reactive Protein 30.9 H, Total Protein 7.9, Albumin 4.5, Globulin 3.4 H, Albumin/Globulin Ratio 1.3, Procalcitonin 0.031 11/04/20 20:20: Amylase 61, Lipase 63 Result diagrams: 11/04/20 20:20 11/04/20 20:20 Orders (Tests/Meds): ED MEDICATIONS Generic Name Dose Route Start Last Admin Trade Name Freq PRN Reason Stop Dose Admin Sodium Chloride 1,000 mls @ 999 mls/hr 11/04/20 20:30 11/04/20 20:29 Sod Chlor 0.9% 1000ml Bag IV 11/04/20 21:30 999 mls/hr .Q1H1M GHANSHYAM Administration Sodium Chloride 8 ml 11/04/20 21:12 11/04/20 21:27 Sodium Chloride 0.9% 10ml Vial IV 12/04/20 21:11 8 ml NEEDED PRN Administration dilute pepcid Discontinued Medications Generic Name Dose Route Start Last Admin Trade Name Freq PRN Reason Stop Dose Admin Famotidine 20 mg 11/04/20 21:12 11/04/20 21:27 Famotidine 20mg/2ml Vial IV 11/04/20 21:13 20 mg ONCE ONE Administration Iopamidol 70 ml 11/04/20 22:09 11/04/20 22:10 Iopamidol-370 (76%);100ml Bottle IV 11/04/20 22:10 70 ml ONCE ONE Administration Ketorolac Tromethamine 30 mg 11/04/20 20:25 11/04/20 20:29 Ketorolac 30mg/Ml Vial IV 11/04/20 20:26 30 mg ONCE ONE Administration Methylprednisolone Sodium Succinate 125 mg 11/04/20 20:25
[2020-11-04 20:14] LABS: Appearance,Urine CLEAR (Clear); Bilirubin,Urine Negative (Negative); Blood, Urine Negative (Negative); Color,Urine YELLOW (Yellow); Glucose,Urine (UA) Negative (Negative); Ketones,Urine 1+ (Negative); Leukocyte Esterase,Urine TRACE (Negative); Nitrate,Urine Negative (Negative); PH,Urine 5.5 (5.0-8.5); Protein,Urine Negative (Negative); Specific Gravity, Urine 1.025 (1.005-1.030); Urobilinogen,Urine 0.2 EU/dl (0.2)
--- NOTE | 2020-11-04 20:24 | XR_ITS ---
PROCEDURE INFORMATION: Exam: XR Chest Exam date and time: 11/04/20 08:24 PM Age: 59 years old Clinical indication: Left-sided and other: Left shoulder pain TECHNIQUE: Imaging protocol: XR of the chest. Views: 4 or more views. COMPARISON: CR CXR1 CHEST-PORTABLE 12/15/16 05:34 PM FINDINGS: Lungs: Unremarkable. No consolidation. Pleural spaces: Unremarkable. No pleural effusion. No pneumothorax. Heart/Mediastinum: Unremarkable. No cardiomegaly. Bones/joints: Unremarkable. IMPRESSION: No acute findings.
[2020-11-04 20:25] LABS: Amorphous Sediment,Urine 1+ /lpf
[2020-11-04 20:29] LABS: Basophils # 0.1 K/mm3 (0-0.2); Basophils % 0.4 % (0.1-2.0); Eosinophils # 0.1 K/mm3 (0.0-0.4); Eosinophils % 0.7 % (0.1-12.0); Hematocrit 39.2 % (37.0-47.0); Hemoglobin 12.7 g/dL (12.2-16.2); Lymphocytes # 2.7 K/mm3 (0.7-4.5); Mean Corpuscular HGB Conc 32.4 g/dL (31.8-35.4); Mean Corpuscular Hemoglobin 28.3 pg (27.0-31.2); Mean Corpuscular Volume 87.3 fl (81-99); Mean Platelet Volume 7.8 fl (7.4-10.4); Monocytes # 0.6 K/mm3 (0.1-1.0); Monocytes % 3.8 % (1.7-9.3); Neutrophils # 10.9 K/mm3 (1.8-7.8); Neutrophils % 76.1 % (37.0-80.0); Platelet Count 296 K/mm3 (142-424); Red Blood Count 4.48 M/mm3 (4.20-5.40); Red Cell Distribution Width 13.9 % (11.5-17.5); White Blood Count 14.3 K/mm3 (4.8-10.8)
[2020-11-04 20:37] LABS: Alanine Aminotransferase 23 U/L (12-78); Albumin Level 4.5 g/dl (3.5-5.0); Albumin/Globulin Ratio 1.3 (1.1-1.8); Alkaline Phosphatase 82 U/L (38-126); Anion Gap 9.8 mEq/L (5-15); Aspartate Amino Transferase 20 U/L (14-36); Bilirubin,Total 0.6 mg/dl (0.2-1.3); Blood Urea Nitrogen 11 mg/dl (7-17); Calcium 9.1 mg/dl (8.4-10.2); Carbon Dioxide 29 mmol/L (22.0-30.0); Chloride 102 mmol/L (98-107); Creatinine Clearance Estimated 226 mL/min (50-200); Estimated Glomerular Filt Rate 126 ml/min (>60); GFR (African American) 153 ML/MIN (>60); Globulin 3.4 g/dL (1.3-3.2); Glucose 111 mg/dl (74-100); Potassium 3.8 mmoL/L (3.5-5.1); Sodium 137 mmol/L (136-145); Total Protein,Serum 7.9 g/dl (6.3-8.2)
[2020-11-04 20:40] VITALS: BP 152/87; PULSE 75; O2SAT 97
[2020-11-04 20:44] LABS: C-Reactive Protein 30.9 mg/L (0-4)
[2020-11-04 20:52] LABS: Troponin I < 0.01 ng/ml (0.00-0.034)
[2020-11-04 20:56] LABS: Procalcitonin 0.031 ng/mL (0.0-2.0)
[2020-11-04 21:01] VITALS: BP 121/73; PULSE 71; O2SAT 98
[2020-11-04 21:06] LABS: Erythrocyte Sedimentation Rate 55 mm/hr (0-30)
--- NOTE | 2020-11-04 21:11 | CT_ITS ---
PROCEDURE INFORMATION: Exam: CT Abdomen And Pelvis With Contrast Exam date and time: 11/04/20 09:11 PM Age: 59 years old Clinical indication: Abdominal pain; Generalized; Patient HX: Upper back , chest and abdomen pain TECHNIQUE: Imaging protocol: Computed tomography of the abdomen and pelvis with contrast. Radiation optimization: All CT scans at this facility use at least one of these dose optimization techniques: automated exposure control; mA and/or kV adjustment per patient size (includes targeted exams where dose is matched to clinical indication); or iterative reconstruction. Contrast material: ISOVUE; Contrast volume: 70 ml; Contrast route: IV; COMPARISON: CT ABDOMEN PELVIS W CON 10/25/20 01:31 AM FINDINGS: Tubes, catheters and devices: None noted. Lungs: Lung bases appear clear. Heart: No significant coronary calcifications. No cardiomegaly. No significant pericardial effusion. Liver: Hepatomegaly. No mass. Gallbladder and bile ducts: Cholecystectomy. No ductal dilation. Pancreas: Normal. No ductal dilation. Spleen: Normal. No splenomegaly. Adrenal glands: Normal. No mass. Kidneys and ureters: Normal. No hydronephrosis. Stomach and bowel: Colonic diverticulosis without diverticulitis.. No obstruction. No mucosal thickening. Appendix: No evidence of appendicitis. Intraperitoneal space: Unremarkable. No free air. No significant fluid collection. Retroperitoneal space: No significant retroperitoneal inflammatory changes are noted. Vasculature: Unremarkable. No abdominal aortic aneurysm. Lymph nodes: Unremarkable. No enlarged lymph nodes. Urinary bladder: Unremarkable as visualized. Reproductive: Unremarkable as visualized. Bones/joints: Unremarkable. No acute fracture. Soft tissues: Incisional hernia anteriorly contains fat. IMPRESSION: 1. No acute findings. 2. No CT evidence of aortic dissection. 3. Hepatomegaly. 4. Cholecystectomy. 5. Resolved diverticulitis since 10/25/2020.
--- NOTE | 2020-11-04 21:11 | CT_ITS ---
PROCEDURE INFORMATION: Exam: CTA Chest With Contrast Exam date and time: 11/04/20 09:11 PM Age: 59 years old Clinical indication: Patient HX: Chest and upper back pain TECHNIQUE: Imaging protocol: Computed tomographic angiography of the chest with contrast. 3D rendering (Not supervised by radiologist): MIP and/or 3D reconstructed images were created by the technologist. Radiation optimization: All CT scans at this facility use at least one of these dose optimization techniques: automated exposure control; mA and/or kV adjustment per patient size (includes targeted exams where dose is matched to clinical indication); or iterative reconstruction. Contrast material: ISOVUE 370; Contrast volume: 70 ml; Contrast route: INTRAVENOUS (IV); COMPARISON: CR XR CHEST AP 11/04/20 08:34 PM FINDINGS: Pulmonary arteries: Normal. No pulmonary emboli. Aorta: Unremarkable. No aortic aneurysm. No aortic dissection. Lungs: Unremarkable. No consolidation. No masses. Pleural spaces: Unremarkable. No pneumothorax. No pleural effusion. Heart: Unremarkable. No cardiomegaly. No pericardial effusion. Lymph nodes: Unremarkable. No enlarged lymph nodes. Bones/joints: Unremarkable. No acute fracture. Soft tissues: Unremarkable. IMPRESSION: 1. No acute findings. 2. No CT evidence of pulmonary embolus or aortic dissection.
[2020-11-04 21:28] LABS: Amylase 61 U/L (30-110)
[2020-11-04 21:29] LABS: Lipase 63 U/L (23-300)
[2020-11-04 21:30] VITALS: BP 122/85; PULSE 82; O2SAT 97
[2020-11-04 23:20] VITALS: BP 124/75; PULSE 81; RESP 18; TEMP 36.9; O2SAT 97
== END 2020-11-04 23:25 | disposition home or self-care (01) ==
PROVIDERS: Emergency Provider Emergency Medicine; PCP Emergency Medicine
DX: M54.6 Pain in thoracic spine (principal); I10 Essential (primary) hypertension; K21.9 Gastro-esophageal reflux disease without esophagitis; F41.8 Other specified anxiety disorders; Z87.442 Personal history of urinary calculi; Z88.0 Allergy status to penicillin; Z79.899 Other long term (current) drug therapy
CPT/HCPCS: 71045; 71275; 72128; 74177; 80053; 81001; 82150; 83690; 84145; 84484; 85025; 85651; 86140; 93005; 96365; 96375; 99283; Q9967

== ENCOUNTER 2020-12-02 08:42 | Outpatient (RCR) | payer MEDICAID, SELFPAY ==
--- NOTE | 2020-12-02 09:38 | HMH.PTOPEV ---
PT Outpatient Evaluation Rehab PT Outpatient Evaluation Start: 12/02/20 09:09 Freq: Status: Active Protocol: Document 12/02/20 09:09 ANTONIO (Rec: 12/02/20 09:38 PHORNICK [id number]) Electronically Signed By Julio Mckeon, PT 12/02/20 09:09 Outpatient Therapy Subjective History Subjective History Pt is 60 yowf who presents with c/o pain in the upper back and post shlds x 3-4 mos with insidious onset of symptoms. Pt states, I'm fighting a fatty liver and I think that's what is causing all of my problems. Pt presents with tenderness in B upper trap and reports fairly constant pain to B post shlds with R > L. PMH: asthma, HTN, GERD. Chief Complaint Pain,Stiff Symptom Type Ache,Burning Symptoms Relieved By Rest/Positioning Symptoms Aggravated By Physical Activity,Lifting Prior Functional Limitations None Current Functional Limitations Lifting,Dressing Symptom Description Constant but Variable Level of pain today (0-10) 5 Pain scale - at its worst (0-10) 9 Cervical Eval Palpation Cervical Muscles R Upper Trapezius,L Upper Trapezius Cervical/Thoracic Palpation Findings Tenderness Posture Head/C-Spine Posture Sitting Position Extended Flexibility Deficits Upper Trapezius Muscle Length (R) Moderate Tightness,(L) Moderate Tightness Levaetor Scapulae Muscle Length (R) Mild Tightness,(L) Mild Tightness Passive Joint Mobility Cervical PIVM WNL: R OA L OA R AA L AA R C2/3 L C2/3 R C3/4 L C3/4 R C4/5 L C4/5 R C5/6 L C5/6 R C6/7 L C6/7 R C7/T1 L C7/T1 AROM Cervical Spine Extension Active Range of 0-40 Motion (degrees) Cervical Spine Flexion Active Range of 0-20 Motion (degrees) Cervical Spine Right Lateral Flexion 0-20 Active Range of Motion (degrees) C
== END 2020-12-02 09:47 | disposition home or self-care (01) ==
LOC: PT 08:42
PROVIDERS: Visit Provider Emergency Medicine
DX: M54.9 Dorsalgia, unspecified (principal)
CPT/HCPCS: 97163

== ENCOUNTER 2020-12-04 14:45 | Emergency (ER) | payer MEDICAID, SELFPAY ==
[2020-12-04 14:47] VITALS: BP 156/89; PULSE 74; RESP 16; TEMP 36.7; O2SAT 98; BMI 38.9
--- NOTE | 2020-12-04 14:58 | HMH.EDGENADL ---
ED Disposition Clinical Impression: Diverticulitis Disposition: Home, Self-Care Condition on Discharge: Fair Instructions: DI for Diverticulitis Additional Instructions: Take antibiotics as prescribed. Tylenol 3 as needed for pain. Zofran as needed for nausea. Return to the emergency department if severe pain, fever greater than 100.4 degrees, repetitive vomiting. Follow-up with your primary care doctor next week, call Sunday to make appointment. Prescriptions: Acetaminophen with Codeine [Tylenol with Codeine #3 tablet] 1 - 2 tab PO Q6HP PRN #12 tab PRN Reason: Moderate Pain Transmission Status: Received by [facility] Acetaminophen with Codeine [Tylenol with Codeine #3 tablet] 1 - 2 tab PO Q6HP PRN #12 tab PRN Reason: Moderate Pain Transmission Status: Sent to [facility] Ciprofloxacin HCl [Cipro 500mg Tab] 500 mg PO BID #20 tab Transmission Status: Pending to [facility] metroNIDAZOLE [Flagyl] 500 mg PO TID #30 tab Transmission Status: Pending to [facility] Ondansetron [Zofran 4mg ODT] 4 mg PO TIDP PRN #10 tab.rapdis PRN Reason: Nausea And Vomiting Transmission Status: Pending to [facility] Referrals: Ryan Hebert MD [Primary Care Provider] - - Critical Care Critical Care Time: No Attestation: On 12/04/20, the high probability of a clinically significant, sudden or life threatening deterioration of the following system(s) required my full and direct attention, intervention and personal management. The time I documented below is in addition to time spent performing reported procedures but includes the following listed in this critical care notation. Medical Decision Making - Medical Records Medical records reviewed: Yes: I reviewed the patient's medical records. MR Comment: Reviewed emergency department visits from 10/25/2020 and 11/04/[address] scans of the abdomen and pelvis. Diagnosed with diverticulitis on 10/25/2020, treated with levaquin and flagyl, findings resolved on CT scan of 11/04/2020. - Olu Inquiry Pt receiving controlled substance: No Vital Signs: 12/04/20 14:47 Temperature 98.0 F Temperature Source Oral Pulse Rate [Left Radial] 74 Respiratory Rate 16 Blood Pressure [Right Arm] 156/89 H Blood Pressure Mean [Right Arm] 111 Blood Pressure Source [Right Arm] Automatic Cuff Blood Pressure Position [Right Arm] Sitting 02 Sat by Pulse Oximetry 98 Oxygen Delivery Method Room Air - Lab Data Lab Results 12/04/20 15:10: Urine Color Yellow, Urine Appearance Clear, Urine pH 7.0, Ur Specific [place] 1.015, Urine Protein Negative, Urine Glucose (UA) Negative, Urine Ketones Negative, Urine Blood Trace-i, Urine Nitrate Negative, Urine Bilirubin Negative, Urine Urobilinogen 0.2, Ur Leukocyte Esterase 2+ A, Urine RBC Occasional, Urine WBC 5-10, Ur Squamous Epith Cells 3-5, Urine Bacteria None 12/04/20 15:10: WBC 15.5 H, RBC 4.52, Hgb 13.4, Hct 41.3, MCV 91.4, MCH 29.7, MCHC 32.4, RDW 13.4, Plt Count 295, MPV 8.5, Neut % (Auto) 81.1 H, Lymph % (Auto) 13.4, [place] % (Auto) 4.4, Eos % (Auto) 0.6, Baso % (Auto) 0.5, Neut # (Auto) 12.6 H, Lymph # (Auto) 2.1, [place] # (Auto) 0.7, Eos # (Auto) 0.1, Baso # (Auto) 0.1, Total Counted 100, Neutrophils % (Manual) 78 H, Lymphocytes % (Manual) 18, Monocytes % (Manual) 4, Platelet Estimate Normal, RBC Morphology Normal 12/04/20 15:10: Sodium 141, Potassium 3.7, Chloride 101, Carbon Dioxide 30, Anion Gap 13.7, BUN 4 L, Creatinine 0.50 L, Estimated Creat Clear 213, Estimated GFR 126, Est GFR ( Amer) 152, Glucose 118 H, Calcium 9.3, Total Bilirubin 0.7, AST 24, ALT 16, Alkaline Phosphatase 77, Total Protein 8.3 H, Albumin 4.7, Globulin 3.6 H, Albumin/Globulin Ratio 1.3 Result diagrams: 12/04/20 15:10 12/04/20 15:10 Orders (Tests/Meds): ED MEDICATIONS Generic Name Dose Route Start Last Admin Trade Name Freq PRN Reason Stop Dose Admin Sodium Chloride 1,000 mls @ 9
--- NOTE | 2020-12-04 15:11 | CT_ITS ---
PROCEDURE INFORMATION: Exam: CT Abdomen And Pelvis With Contrast Exam date and time: 12/04/2020 3:11 PM Age: 60 years old Clinical indication: Abdominal pain; Localized; Lower; Additional info: Abdominal pain, h/o diverticulitis TECHNIQUE: Imaging protocol: Computed tomography of the abdomen and pelvis with contrast. Radiation optimization: All CT scans at this facility use at least one of these dose optimization techniques: automated exposure control; mA and/or kV adjustment per patient size (includes targeted exams where dose is matched to clinical indication); or iterative reconstruction. Contrast material: ISOVUE; Contrast volume: 75 ml; Contrast route: IV; COMPARISON: CT ABDOMEN PELVIS W CON 11/04/2020 9:53 PM FINDINGS: Lungs: Dense atelectasis in the posterior sulcus at the right lung base sagittal series 602, images 76-78. Liver: Hepatomegaly. Focal subcapsular/periligamentous fatty change in the anteromedial segment of the left lobe series 3, images 49 -52, coronal series 601, image 22-23. No suspicious appearing mass. Gallbladder and bile ducts: Cholecystectomy clips. No biliary dilatation. No calcified stones. Pancreas: The pancreas is normal. Spleen: The spleen is normal. No splenomegaly. Tiny accessory splenule at the lower pole of the spleen coronal 601 image 40. Adrenal glands: The adrenal glands are normal. Kidneys and ureters: The kidneys are normal. No hydronephrosis. There is chronic mild ectasia of the right ureter compared with left, unchanged compared with 11/04/2020. No calcified obstructing ureteral stones seen. Stomach and bowel: Diverticulosis coli. Findings of acute diverticulitis in the lower sigmoid colon, with colon wall edema, prominent pericolic soft tissue stranding and trace fluid. No organized pericolic abscess collection. No extraluminal gas bubbles. See axial series 3, images 104-113, coronal series 601 images 49-63. No colon dilatation/obstruction. No acute findings in the stomach. Small hiatal hernia. Gaseous distention of small bowel loops with air-fluid levels, which could be slight ileus or enteritis, but no significantly dilated loops or mucosal thickening. Appendix: No findings of appendicitis. Intraperitoneal space: No free air. Pericolic edema and trace fluid surrounding the lower sigmoid. No organized abscess collection. Vasculature: The vasculature demonstrates scattered mild atherosclerotic calcifications. There is no aortic aneurysm. No portal venous gas. Lymph nodes: No significantly enlarged lymph nodes by short axis criteria. Urinary bladder: The bladder is normal. Reproductive: Uterus and right adnexa are unremarkable for age. Left ovary not well seen, there are left tubal/ligamentous calcifications, correlate for prior left oophorectomy coronal series 601, images 33 -37. Bones/joints: Spinal degenerative changes. Chronic grade 1 degenerative anterolisthesis L4-L5. Multilevel disc disease, spondylosis and facet arthropathy. Some prominent bridging osteophytes in the lower thoracic spine. Arthritis at the pubic symphysis. 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 Sacroiliac arthritis greater on the left. Soft tissues: Cluster of small fatty hernias at the umbilicus and periumbilical region. No herniated bowel loops. Fatty distention of the left inguinal canal could be lipomatosis or small fatty hernia, no herniated bowel loops. There are no other soft tissue masses or fluid collections. IMPRESSION: 1. Acute diverticulitis involving the lower sigmoid colon, with colon wall thickening/edema, surrounding mesenteric edema and trace f
[2020-12-04 15:24] LABS: Microscopic, Urine URINE MICROSCOPIC (MICROSCOPIC)
[2020-12-04 15:26] LABS: Appearance,Urine CLEAR (Clear); Basophils # 0.1 K/mm3 (0-0.2); Basophils % 0.5 % (0.1-2.0); Bilirubin,Urine Negative (Negative); Blood, Urine TRACE-I (Negative); Color,Urine YELLOW (Yellow); Eosinophils # 0.1 K/mm3 (0.0-0.4); Eosinophils % 0.6 % (0.1-12.0); Glucose,Urine (UA) Negative (Negative); Hematocrit 41.3 % (37.0-47.0); Hemoglobin 13.4 g/dL (12.2-16.2); Ketones,Urine Negative (Negative); Leukocyte Esterase,Urine 2+ (Negative); Lymphocytes # 2.1 K/mm3 (0.7-4.5); Lymphocytes % 13.4 % (10-50); Mean Corpuscular HGB Conc 32.4 g/dL (31.8-35.4); Mean Corpuscular Hemoglobin 29.7 pg (27.0-31.2); Mean Corpuscular Volume 91.4 fl (81-99); Mean Platelet Volume 8.5 fl (7.4-10.4); Monocytes # 0.7 K/mm3 (0.1-1.0); Monocytes % 4.4 % (1.7-9.3); Neutrophils # 12.6 K/mm3 (1.8-7.8); Neutrophils % 81.1 % (37.0-80.0); Nitrate,Urine Negative (Negative); Platelet Count 295 K/mm3 (142-424); Protein,Urine Negative (Negative); Red Blood Count 4.52 M/mm3 (4.20-5.40); Red Cell Distribution Width 13.4 % (11.5-17.5); Specific Gravity, Urine 1.015 (1.005-1.030); Urobilinogen,Urine 0.2 EU/dl (0.2); White Blood Count 15.5 K/mm3 (4.8-10.8)
[2020-12-04 15:34] LABS: MANUAL DIFFERENTIAL MANUAL DIFFERENTIAL (MANUAL DIFF)
[2020-12-04 15:42] LABS: Lymphocytes % 18 % (10-50); Monocytes % 4 % (2-9); Neutrophils % 78 % (42-76); Platelet Estimate Normal; RBC Morphology Normal; Total Cells Counted 100
[2020-12-04 15:51] LABS: RBC,Urine Occasional #/hpf (0-3)
[2020-12-04 15:54] LABS: Alanine Aminotransferase 16 U/L (12-78); Albumin Level 4.7 g/dl (3.5-5.0); Albumin/Globulin Ratio 1.3 (1.1-1.8); Alkaline Phosphatase 77 U/L (38-126); Anion Gap 13.7 mEq/L (5-15); Aspartate Amino Transferase 24 U/L (14-36); Bilirubin,Total 0.7 mg/dl (0.2-1.3); Blood Urea Nitrogen 4 mg/dl (7-17); Calcium 9.3 mg/dl (8.4-10.2); Carbon Dioxide 30 mmol/L (22.0-30.0); Chloride 101 mmol/L (98-107); Creatinine Clearance Estimated 213 mL/min (50-200); Estimated Glomerular Filt Rate 126 ml/min (>60); GFR (African American) 152 ML/MIN (>60); Globulin 3.6 g/dL (1.3-3.2); Glucose 118 mg/dl (74-100); Potassium 3.7 mmoL/L (3.5-5.1); Sodium 141 mmol/L (136-145); Total Protein,Serum 8.3 g/dl (6.3-8.2)
[2020-12-04 19:00] VITALS: BP 101/58; PULSE 63; RESP 18; TEMP 36.7; O2SAT 98
== END 2020-12-04 19:02 | disposition home or self-care (01) ==
PROVIDERS: Emergency Provider Emergency Medicine; PCP Family Medicine
DX: K57.32 Diverticulitis of large intestine without perforation or abscess without bleeding (principal); Z88.0 Allergy status to penicillin; Z88.6 Allergy status to analgesic agent; F41.9 Anxiety disorder, unspecified; J45.909 Unspecified asthma, uncomplicated; F32.9 Major depressive disorder, single episode, unspecified; K21.9 Gastro-esophageal reflux disease without esophagitis; I10 Essential (primary) hypertension; G43.909 Migraine, unspecified, not intractable, without status migrainosus; Z87.442 Personal history of urinary calculi
CPT/HCPCS: 74177; 80053; 81001; 85007; 85025; 87086; 96365; 96367; 96375; 99283; J1956; J2405; Q9967

== ENCOUNTER → 2021-01-10 15:26 | Outpatient (CLI) | payer MEDICAID, SELFPAY | PROVIDERS: Visit Provider Family Medicine | DX: R35.0 Frequency of micturition (principal) | CPT/HCPCS: 87086; 87088; 87186 ==

== ENCOUNTER 2021-01-28 09:53 | Emergency (ER) | payer MEDICAID, SELFPAY ==
[2021-01-28 10:00] VITALS: BP 118/73; PULSE 71; RESP 17; TEMP 36.9; O2SAT 98; BMI 36.5
--- NOTE | 2021-01-28 11:01 | HMH.EDUTC ---
[facility] [place] Clinical Impression: Cough Disposition: Home, Self-Care Condition on Discharge: Good Instructions: Cough Additional Instructions: *Monitor Temp, Over the counter Motrin or Tylenol as directed/as needed Tylenol every 4 hours and Motrin every 6 hours (as long as your family doctor has told you that you can take it) for fever or pain. and straight to ER if unable to lower temp less than 101.0 after medication given *Warm salt water gargles may help to soothe the throat *Throat Lozenges *Warm fluids like tea with honey may help to soothe the throat *Sleep elevated *Humidifier/Vaporizer *Bromfed may cause drowsiness. Know how it effects you (your child) before driving, caring for small child, or sending your child to school. Not other antihistamines/allergy medications while taking bromfed Follow up IMMEDIATELY for new or worsening symptoms or no Noticeable improvement over the next 48-72 hours. 911 for difficulty breathing or swallowing Prescriptions: Brompheniramine/Pseudoephed/Dm [Bromfed Dm Cough Syrup] 10 ml PO Q46H PRN #150 ml PRN Reason: Cough Transmission Status: Pending to [facility] Referrals: Jerod Lagos MD [Primary Care Provider] - As needed Time of Disposition: 11:08 Medical Decision Making - Olu Inquiry Pt receiving controlled substance: No Olu was queried for this patient: No Vital Signs: 01/28/21 10:00 Temperature 98.4 F Temperature Source Oral Pulse Rate [Right Brachial] 71 Respiratory Rate 17 Blood Pressure [Right Arm] 118/73 Blood Pressure Mean [Right Arm] 88 Blood Pressure Source [Right Arm] Automatic Cuff Blood Pressure Position [Right Arm] Sitting 02 Sat by Pulse Oximetry 98 Oxygen Delivery Method Room Air - Lab Data Lab results reviewed: Yes: I reviewed the patient's lab results. [facility] [place] - General Stated complaint: cough, sore throat, congestion Time Seen by Provider: 01/28/21 11:01 Mode of Arrival: Ambulatory Source of Information: Patient Limitations: No Limitations Description of Symptoms (Recalled from Triage Doc. by RN): PATIENT C/O COUGH AND CONGESTION X 3 DAYS HEENT Symptoms (Recalled from RN notes): Yes Resp Symptoms (Recalled from RN notes): Yes Skin Symptoms (Recalled from RN notes): No MS Symptoms (Recalled from RN notes): No Functional Status (Recalled from RN notes): WNL - History of Present Illness Provider Complaint: Patient states that she has been having cough and runny nose for several days now States that she had some tessalone perrles at home but it isnt working States that she was seen awhile back and it helped alot so she came in today to get checked and see if she could get some more of it - Related Data Previous Rx's Medication Instructions Recorded Brompheniramine/Pseudoephed/Dm 10 ml PO Q46H PRN #150 ml 01/28/21 [Bromfed Dm Cough Syrup] Allergies Allergy/AdvReac Type Severity Reaction Status Date / Time hydrocodone [HYDROCODONE] Allergy Unknown Verified 01/20/21 10:56 Penicillins [PENICILLINS] Allergy Unknown Verified 01/20/21 10:56 - Worker's Comp Is this a Worker's Comp case?: No [facility] History - Hepatitis A Screen Drug use history?: No High risk sexual behaviors?: No History of sexually transmitted infection?: No Currently employed?: No Childcare worker?: No Do you have indoor plumbing?: Yes Do you have electricity?: Yes Attestation statement:: This patient has been screened for Hepatitis A risk factors. I have reviewed the patient's past medical history: Yes Medical History: Reports:: Anxiety, Asthma, Depression, Gastroesophageal Reflux Disease(GERD), Hypertension, Kidney Stones, Migraine Denies:: Cancer, Diabetes Mellitus Type 1, Diabetes Mellitus Type 2, Internal Pacemaker, MRSA, Seizures Other Medical History: Reports: Arthritis, Other Other Surgeries: Yes: No Previous Surgery, Cholecystectomy, , Hernia Repair. No: Pacemaker Amputation: No Fractures:
[2021-01-28 11:05] VITALS: BP 118/73; PULSE 71; RESP 17; TEMP 36.9; O2SAT 98
== END 2021-01-28 11:10 | disposition home or self-care (01) ==
PROVIDERS: Emergency Provider Nurse Practitioner; PCP Emergency Medicine
DX: R05.9 Cough, unspecified (principal); J02.9 Acute pharyngitis, unspecified; R09.89 Other specified symptoms and signs involving the circulatory and respiratory systems
CPT/HCPCS: 99202; G0463

== ENCOUNTER 2021-02-02 17:49 | Emergency (ER) | payer OTHER, MEDICAID, SELFPAY ==
[2021-02-02 17:52] VITALS: BP 136/97; PULSE 61; RESP 18; TEMP 36.8; O2SAT 99; BMI 36.6
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
--- NOTE | 2021-02-02 18:43 | PC.NURSE ---
pt in radiology
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
[2021-02-02 20:19] VITALS: BP 136/97; PULSE 61; RESP 16; TEMP 36.8; O2SAT 99
== END 2021-02-02 20:23 | disposition home or self-care (01) ==
PROVIDERS: Emergency Provider Student in an Organized Health Care Education/Training Program; PCP Emergency Medicine
DX: M54.2 Cervicalgia (principal); M25.522 Pain in left elbow; M79.605 Pain in left leg; V43.52XA Car driver injured in collision with other type car in traffic accident, initial encounter; Y92.414 Local residential or business street as the place of occurrence of the external cause
CPT/HCPCS: 70450; 72125; 72128; 72131; 73060; 73552; 99281

== ENCOUNTER → 2021-03-04 15:10 | Outpatient (CLI) | payer MEDICAID, SELFPAY ==
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
== END ==
PROVIDERS: PCP Emergency Medicine; Visit Provider Nurse Practitioner Family
DX: M25.511 Pain in right shoulder (principal)
CPT/HCPCS: 73221

== ENCOUNTER 2021-03-04 16:50 | Emergency (ER) | payer MEDICAID, SELFPAY ==
[2021-03-04 17:37] VITALS: BP 148/62; PULSE 75; RESP 18; TEMP 36.9; O2SAT 97; BMI 35.7
--- NOTE | 2021-03-04 17:49 | HMH.EDUTC ---
[facility] [place] Clinical Impression: Diverticulitis Disposition: Home, Self-Care Condition on Discharge: Good Instructions: Diverticulitis, DI for Diverticulitis Additional Instructions: Drink plenty of fluids. Take tylenol or ibuprofen for pain or fever. Take the medications as directed. Follow up with your regular doctor. GO TO THE ER FOR ANY WORSENING SYMPTOMS Prescriptions: Ondansetron [Zofran 4mg ODT] 4 mg PO Q8HP PRN #20 tab PRN Reason: Nausea Transmission Status: Pending to [facility] Ciprofloxacin HCl [Cipro 500mg Tab] 500 mg PO BID 10 Days #20 tab Transmission Status: Pending to [facility] metroNIDAZOLE [metroNIDAZOLE 500mg Tablet] 500 mg PO TID 10 Days #30 tab Transmission Status: Pending to [facility] Referrals: Jerod Lagos MD [Primary Care Provider] - Time of Disposition: 17:59 Medical Decision Making - Medical Records Medical records reviewed: No: I reviewed the patient's medical records. - Olu Inquiry Pt receiving controlled substance: No Vital Signs: 03/04/21 17:37 Temperature 98.5 F Temperature Source Oral Pulse Rate [Left Radial] 75 Respiratory Rate 18 Blood Pressure [Right Arm] 148/62 H Blood Pressure Mean [Right Arm] 90 02 Sat by Pulse Oximetry 97 Oxygen Delivery Method Room Air [facility] [place] HPI - General Stated complaint: infection in bowels Time Seen by Provider: 03/04/21 17:49 Mode of Arrival: Ambulatory Source of Information: Patient Limitations: No Limitations Description of Symptoms (Recalled from Triage Doc. by RN): pt to [facility] per pvt car. pt states she has a hx of ibs and reports she is having a flare up. pt reports calling her pcp and they advised her to come be evaluated. pt is c/o lower back pain. pt denies abd pain. HEENT Symptoms (Recalled from RN notes): No Resp Symptoms (Recalled from RN notes): No Skin Symptoms (Recalled from RN notes): No MS Symptoms (Recalled from RN notes): No Functional Status (Recalled from RN notes): na - History of Present Illness Provider Complaint: She states that she has a history of diverticulosis and diverticulitis. She knows how her symptoms feel when she gets ready to have the diverticulitis. She states that for the past 2 days she has had abdominal tenderness and soft stools. She denies any fever or chills. She request to be treated with flagyl and cipro like her primary care physician does when she starts feeling like this. - Related Data Previous Rx's Medication Instructions Recorded prednisone 20 mg tablet 20 mg PO BID #10 tab 02/16/21 Ciprofloxacin HCl [Cipro 500mg 500 mg PO BID 10 Days #20 tab 03/04/21 Tab] Ondansetron [Zofran 4mg ODT] 4 mg PO Q8HP PRN #20 tab 03/04/21 metroNIDAZOLE [metroNIDAZOLE 500mg 500 mg PO TID 10 Days #30 tab 03/04/21 Tablet] Allergies Allergy/AdvReac Type Severity Reaction Status Date / Time hydrocodone [HYDROCODONE] Allergy Unknown Verified 02/16/21 14:40 Penicillins [PENICILLINS] Allergy Unknown Verified 02/16/21 14:40 - Worker's Comp Is this a Worker's Comp case?: No [facility] History - Hepatitis A Screen Drug use history?: No High risk sexual behaviors?: No History of sexually transmitted infection?: No Currently employed?: No Childcare worker?: No Do you have indoor plumbing?: Yes Do you have electricity?: Yes Attestation statement:: This patient has been screened for Hepatitis A risk factors. I have reviewed the patient's past medical history: Yes Medical History: Reports:: Anxiety, Asthma, Depression, Gastroesophageal Reflux Disease(GERD), Hypertension, Kidney Stones, Migraine Denies:: Cancer, Diabetes Mellitus Type 1, Diabetes Mellitus Type 2, Internal Pacemaker, MRSA, Seizures Other Medical History: Reports: Arthritis, Other Other Surgeries: Yes: No Previous Surgery, Cholecystectomy, , Hernia Repair. No: Pacemaker Amputation: No Fractures: Yes Commen
[2021-03-04 18:57] VITALS: BP 148/62; PULSE 75; RESP 18; TEMP 36.9; O2SAT 97
== END 2021-03-04 18:58 | disposition home or self-care (01) ==
PROVIDERS: Emergency Provider Nurse Practitioner Family; PCP Emergency Medicine
DX: K57.92 Diverticulitis of intestine, part unspecified, without perforation or abscess without bleeding (principal); I10 Essential (primary) hypertension; J45.909 Unspecified asthma, uncomplicated; F41.8 Other specified anxiety disorders; K21.9 Gastro-esophageal reflux disease without esophagitis
CPT/HCPCS: 99202; G0463

== ENCOUNTER → 2021-08-04 11:53 | Outpatient (CLI) | payer MEDICAID, SELFPAY | PROVIDERS: PCP Family Medicine; Visit Provider Family Medicine | DX: M54.9 Dorsalgia, unspecified (principal) | CPT/HCPCS: 87086 ==

== ENCOUNTER → 2022-02-16 08:51 | Outpatient (CLI) | payer MEDICAID, SELFPAY ==
--- NOTE | 2022-02-16 08:51 | US_ITS ---
FINAL REPORT CLINICAL HISTORY: abd pain FINDINGS: Sonographic images of the abdomen were obtained. The liver has an unremarkable appearance with normal echogenicity. The gallbladder is surgically absent. There is no evidence of biliary ductal dilatation. The common hepatic duct measures 6 mm, which is at the upper limits of normal. The pancreas is partially obscured. The spleen size is normal. The right kidney measures 10.2 cm in length. The left kidney measures 11.0 cm in length. There is normal renal echogenicity. There is no evidence of hydronephrosis. The aorta has an unremarkable appearance. Limited images of the inferior vena cava are unremarkable. IMPRESSION: Cholecystectomy. Common duct measures at the upper limits of normal which may represent post cholecystectomy change Reviewed, Interpreted and Dictated by Andrew Barnes III, MD Transcribed by Leanne Jules Authenticated and [facility]
== END ==
PROVIDERS: PCP Family Medicine; Visit Provider Student in an Organized Health Care Education/Training Program
DX: R10.9 Unspecified abdominal pain (principal)
CPT/HCPCS: 76700

== ENCOUNTER → 2022-03-01 09:24 | Outpatient (CLI) | payer MEDICAID, SELFPAY ==
--- NOTE | 2022-03-01 09:25 | CT_ITS ---
FINAL REPORT TECHNIQUE: Axial images through the abdomen and pelvis were performed without contrast. This study was performed with techniques to keep radiation doses as low as reasonably achievable, (ALARA). Individualized dose reduction techniques using automated exposure control or adjustment of mA and/or kV according to the patient's size were employed. CLINICAL HISTORY: abd pain, hx of hernia COMPARISON: 12/04/2020 FINDINGS: ABDOMEN: The lung bases are clear. The heart size is normal. The liver parenchyma is homogeneous. The gallbladder is absent. The spleen is normal. The pancreas is normal. No adrenal mass is identified. The aorta is normal in caliber. There is no significant free fluid or adenopathy. There is no nephrolithiasis. There is no hydronephrosis. There is a lobular multi-component fat containing umbilical hernia, similar to but slightly larger than prior. PELVIS: The appendix is not identified. The uterus is anteverted. The urinary bladder is unremarkable. There is no significant free fluid or adenopathy. IMPRESSION: Lobular fat containing umbilical hernia as above. Reviewed, Interpreted and Dictated by Kurtis Ruby MD Transcribed by Sue Gorman Authenticated and . [facility]
== END ==
PROVIDERS: PCP Family Medicine; Visit Provider Student in an Organized Health Care Education/Training Program
DX: R10.9 Unspecified abdominal pain (principal); K46.9 Unspecified abdominal hernia without obstruction or gangrene
CPT/HCPCS: 74176

== ENCOUNTER 2022-03-01 10:24 | Outpatient (RCR) | payer MEDICAID, SELFPAY | END 2022-03-01 10:30 | disposition home or self-care (01) | LOC: OT 10:24 | PROVIDERS: PCP Family Medicine; Visit Provider Student in an Organized Health Care Education/Training Program | DX: M25.511 Pain in right shoulder (principal) | CPT/HCPCS: 97165 ==

== ENCOUNTER → 2022-03-21 09:45 | Outpatient (CLI) | payer MEDICAID, SELFPAY ==
--- NOTE | 2022-03-21 09:45 | MM_ITS ---
PROCEDURE INFORMATION: Exam: MG Bilateral Screening 3D Mammography Exam date and time: 03/21/2022 9:53 AM Age: 61 years old Clinical indication: Screening. Paternal and maternal aunt had breast cancer. TECHNIQUE: Imaging protocol: Bilateral Screening tomosynthesis and 2D mammography including computer-aided detection (CAD) when performed. COMPARISON: 1. MG DMSB DIG MAMM-SCREEN KATHERYN W/CAD 01/10/2017 9:44 AM 2. MG DMSB DIG MAMM-SCREEN KATHERYN 02/25/2015 11:14 AM 3. MG DIGMAMMS MAMMOGRAM SCREEN-PLUG MACHINE OPERATOR N/C 08/24/2011 2:55 PM 4. MG DMSB DIGITAL MAMM-SCREEN BILATERAL 08/24/2011 2:27 PM FINDINGS: MAMMOGRAPHY: Breast composition: There are scattered areas of fibroglandular density. Mass: None. Architectural distortion: None. Calcifications: No suspicious calcifications. Asymmetric density: None. Skin thickening: None. Axillary adenopathy: None. IMPRESSION: No mammographic evidence of malignancy. Annual screening is recommended unless otherwise clinically indicated. ASSESSMENT: BI-RADS Category 1: Negative
== END ==
PROVIDERS: PCP Emergency Medicine; Visit Provider Emergency Medicine
DX: Z12.31 Encounter for screening mammogram for malignant neoplasm of breast (principal)
CPT/HCPCS: 77063; 77067

== ENCOUNTER 2022-11-01 14:00 | Outpatient (RCR) | payer MEDICAID, SELFPAY | END 2022-11-01 14:05 | disposition home or self-care (01) | LOC: OT 14:00 | PROVIDERS: Visit Provider Nurse Practitioner Family | DX: M25.511 Pain in right shoulder (principal) | CPT/HCPCS: 97165 ==

== ENCOUNTER → 2023-03-07 23:59 | Outpatient (CLI) | payer MEDICAID, SELFPAY | PROVIDERS: PCP Internal Medicine; Visit Provider Internal Medicine | DX: N39.0 Urinary tract infection, site not specified (principal); B96.29 Other Escherichia coli [E. coli] as the cause of diseases classified elsewhere; B95.1 Streptococcus, group B, as the cause of diseases classified elsewhere | CPT/HCPCS: 87086 ==

== ENCOUNTER 2023-04-20 08:22 | Outpatient (CLI) | payer MEDICAID, SELFPAY | END 2023-04-20 23:59 | LOC: LAB.DROPOF 04-21 08:23 | PROVIDERS: PCP Family Medicine; Visit Provider Student in an Organized Health Care Education/Training Program | DX: N39.0 Urinary tract infection, site not specified (principal) | CPT/HCPCS: 87086 ==

== ENCOUNTER 2023-04-25 11:44 | Emergency (ER) | payer MEDICAID, SELFPAY ==
[2023-04-25 12:20] VITALS: BP 134/86; PULSE 68; RESP 18; TEMP 36.8; O2SAT 98; BMI 40.4
[2023-04-25 12:30] LABS: Apearance,Urine Clear (Clear); Bilirubin,Urine Negative (Negative); Blood, Urine Negative (Negative); Color,Urine Yellow (Yellow); Glucose,Urine (UA) Negative (Negative); Ketones,Urine Negative (Negative); PH,Urine 6.5 (5.0-8.5); Protein,Urine Negative (Negative)
[2023-04-25 12:31] LABS: UTC Leukocyte Esterase,Urine Trace (Negative); UTC Nitrate,Urine Negative (Negative); Urobilinogen,Urine 0.2 EU/dl (0.2)
--- NOTE | 2023-04-25 12:43 | EXP.UTC ---
Discharge Plan Disposition Patient Disposition: Home, Self-Care Condition: Good Prescriptions Prescriptions: No Action prenat.vits,melvina,[id number]-ydohc Tablet 1 tab PO DAILY Qty: 90 3RF propranolol 60 mg capsule,extended release 24 hr See Rx Instructions .ROUTE .COMPLEX Qty: 90 1RF Dose Instruction: TAKE ONE CAPSULE BY MOUTH ONCE A DAY Rx Instructions: TAKE ONE CAPSULE BY MOUTH ONCE A DAY sumatriptan succinate [Imitrex] 100 mg tablet 100 mg PO Q2H PRN (Reason: migraine headache) Qty: 9 5RF Rx Instructions: do not exceed 2 doses per 24 hrs ciprofloxacin HCl [Cipro] 500 mg tablet See Rx Instructions .ROUTE .COMPLEX Qty: 30 10RF Rx Instructions: 1 po prior to intercourse nitrofurantoin monohyd/m-cryst 100 mg capsule 100 mg PO Q12H 7 Days Qty: 14 0RF Rx Instructions: must administer with a meal/food albuterol sulfate 90 mcg/actuation HFA aerosol inhaler See Rx Instructions .ROUTE .COMPLEX Qty: 18 2RF Dose Instruction: INHALE 1 PUFF BY MOUTH EVERY 4 TO 6 HOURS NEEDED FOR SHORTNESS OF BREATH OR WHEEZING Rx Instructions: INHALE 1 PUFF BY MOUTH EVERY 4 TO 6 HOURS NEEDED FOR SHORTNESS OF BREATH OR WHEEZING ergocalciferol (vitamin D2) 1,250 mcg (50,000 unit) capsule See Rx Instructions .ROUTE .COMPLEX Qty: 5 3RF Dose Instruction: TAKE ONE CAPSULE BY MOUTH EVERY WEEK Rx Instructions: TAKE ONE CAPSULE BY MOUTH EVERY WEEK furosemide 20 mg tablet See Rx Instructions .ROUTE .COMPLEX Qty: 30 0RF Dose Instruction: TAKE ONE TABLET BY MOUTH ONCE A DAY NEEDED FOR EDEMA Rx Instructions: TAKE ONE TABLET BY MOUTH ONCE A DAY NEEDED FOR EDEMA ropinirole 1 mg tablet See Rx Instructions .ROUTE .COMPLEX Qty: 60 0RF Dose Instruction: TAKE ONE TABLET BY MOUTH AT BEDTIME FOR 7 DAYS THEN INCREASE TO 2 TABLET AT BEDTIME IF NOT EFFECTIVVE Rx Instructions: TAKE ONE TABLET BY MOUTH AT BEDTIME FOR 7 DAYS THEN INCREASE TO 2 TABLET AT BEDTIME IF NOT EFFECTIVVE terbinafine HCl 250 mg tablet See Rx Instructions .ROUTE .COMPLEX Qty: 28 0RF Dose Instruction: TAKE ONE TABLET BY MOUTH ONCE A DAY FOR 12 WEEKS Rx Instructions: TAKE ONE TABLET BY MOUTH ONCE A DAY FOR 12 WEEKS albuterol sulfate 2.5 mg /3 mL (0.083 %) solution for nebulization See Rx Instructions .ROUTE .COMPLEX Qty: 180 0RF Dose Instruction: INHALE CONTENTS OF 1 VIAL VIA NEBULIZER UP TO FOUR TIMES A DAY NEEDED FOR SHORTNESS OF AIR Rx Instructions: INHALE CONTENTS OF 1 VIAL VIA NEBULIZER UP TO FOUR TIMES A DAY NEEDED FOR SHORTNESS OF AIR fluconazole 150 mg tablet 1 mg PO ONCE Referrals Follow up/Referrals: Bruce Schmitz DO [Primary Care Provider] - See instructions Activity Restrictions/Add. Instructions Additional Instructions/Restrictions: Take your medication as prescribed Over the counter Montastat may help with yeast infection symptoms Make sure to check with your Family Doctor for your urine culture results Drink plenty of fluids Straight to ER if any life threatening symptoms Follow up with OBGYN for pelvic exam Clinical Impressions Clinical Impression: Urinary symptom or sign Instructions Patient Instructions: Ciprofloxacin Discharge ED Provider: [place] Lieberman [facility] [place] Stated complaint: pain all over, poss infection Mode of Arrival: Ambulatory Source of Information: Patient Limitations: No Limitations Time Seen by Provider: 04/25/23 12:43 Description of Symptoms (Recalled from Triage Doc. by RN): Pt is having right sided flank pain, and itching for over a month. HEENT Symptoms (Recalled from RN notes): Yes Resp Symptoms (Recalled from RN notes): No Skin Symptoms (Recalled from RN notes): No MS Symptoms (Recalled from RN notes): No Functional Status (Recalled from RN notes): n/a History of Present Illness Provider Complaint: Patient states that she has been being treated for UTI States that she was taking Nitrofurantoin but it wasnt helping and her PCP changed it to Cipro yesterday but she hasnt started it yet States that she was also having itching and they had give her fluconazole and she took it yesterday and it has helped with that States that she just wanted to get her urine checked again before starting the new medication Related Data Home Medications Medication Instructions Recorded Confirmed fluconazole 150 mg tablet 1 mg PO ONCE yeast 04/25/23 04/25/23 Previous Rx's Medication Instructions Recorded prenat.vits,melvina,[id number] 1 tab PO DAILY #90 tabs 10/06/22 propranolol 60 mg capsule,24 See Rx Instructions .Route 10/06/22 hr,extended release .COMPLEX #90 caps sumatriptan succinate 100 mg 100 mg PO Q2H PRN migraine 10/06/22 tablet (Imitrex) headache #9 tabs albuterol sulfate 2.5 mg/3 mL See Rx Instructions .Route 03/12/23 (0.083 %) solution for nebulization .COMPLEX #180 mL albuterol sulfate 90 mcg/actuation See Rx Instructions .Route 03/13/23 aerosol inhaler .COMPLEX #18 grams ergocalciferol (vitamin D2) 1,250 See Rx Instructions .Route 03/13/23 mcg (50,000 unit) capsule .COMPLEX #5 caps furosemide 20 mg tablet See Rx Instructions .Route 03/13/23 .COMPLEX #30 tabs ropinirole 1 mg tablet See Rx Instructions .Route 03/13/23 .COMPLEX #60 tabs terbinafine HCl 250 mg tablet See Rx Instructions .Route 03/13/23 .COMPLEX #28 tabs ciprofloxacin HCl 500 mg tablet See Rx Instructions .Route 03/28/23 (Cipro) .COMPLEX #30 tabs nitrofurantoin 100 mg PO Q12H 7 days #14 caps 04/20/23 monohydrate/macrocrystals 100 mg capsule Allergies Allergy/AdvReac Type Severity Reaction Status Date / Time hydrocodone [HYDROCODONE] Allergy Unknown Verified 04/25/23 12:35 Penicillins [PENICILLINS] Allergy Unknown Verified 04/25/23 12:35 Worker's Comp Is this a Worker's Comp case?: No [facility] Disclaimer: The information contained in this section may have been updated after the patient was seen, as this information can be updated by other users. Medical History (Updated 04/25/23 @ 12:53 by Valerie Lieberman APRN) Abnormal EKG Asthma Bilateral arm pain Cervical spondylosis Chest pain Diverticulitis Hypertension Migraines RLS (restless legs syndrome) Sciatic nerve pain Sinus bradycardia Vaginitis Surgical History No pertinent past surgical history Family History Family/Other No significant family history Social History Smoking Status: Never smoker alcohol intake: never substance use type: denies use current occupational status: unemployed Travel in the last 8 weeks: None household members: spouse housing: house caffeine: Yes ROS Obtained: Yes All systems reviewed & no additional complaints except as documented and Yes Systems reviewed as appropriate & no additional complaints except as documented Constitutional Constitutional: Reports system reviewed and no additional complaints, except as documented, Reports as per HPI, Denies body ache, Denies chills and Denies fever(s) ENT Ears, Nose, Mouth, and Throat: Reports system reviewed and no additional complaints, except as documented and Reports as per HPI Cardiovascular Cardiovascular: Reports system reviewed and no additional complaints, except as documented and Reports as per HPI Respiratory Respiratory: Reports system reviewed and no additional complaints, except as documented and Reports as per HPI Gastrointestinal Gastrointestingal: Reports system reviewed and no additional complaints, except as documented and as per HPI; Denies abdominal pain, diarrhea, nausea or vomiting Genitourinary Female Genitourinary: Reports system reviewed and no additional complaints, except as documented, Reports as per HPI and Reports other Comments: hx of chronic UTI and yeast infections Physical Exam General General appearance: alert and in no apparent distress ENT ENT exam: Present mucous membranes moist Respiratory Respiratory exam: Present normal lung sounds bilaterally; Absent respiratory distress or wheezes Cardiovascular Cardiovascular exam: Present regular rate, normal rhythm and normal heart sounds Abdominal Exam Abdominal exam: Present soft and normal bowel sounds; Absent distention or tenderness Back Exam Back exam: Present normal inspection, full ROM and muscle spasm; Absent tenderness or CVA tenderness (R) Neurological Exam Neurological exam: Present alert, oriented X3 and normal gait Medical Decision Making Olu Inquiry Pt receiving controlled substance: No Olu was queried for this patient: No Vital Signs: 04/25/23 12:20 Temperature 98.2 F Temperature Source Oral Pulse Rate [Right Radial] 68 Respiratory Rate 18 Blood Pressure [Right Arm] 134/86 Blood Pressure Mean [Right Arm] 102 Blood Pressure Source [Right Arm] Automatic Cuff Blood Pressure Position [Right Arm] Sitting 02 Sat by Pulse Oximetry 98 Oxygen Delivery Method Room Air Lab Data Lab results reviewed: Yes I reviewed the patient's lab results. Lab Results 04/25/23 12:01: Urine Color Yellow, Urine Appearance Clear, Urine pH 6.5, Ur Specific [place] 1.020, Urine Protein Negative, Urine Glucose (UA) Negative, Urine Ketones Negative, Urine Blood Negative, Urine Nitrate Negative, Urine Bilirubin Negative, Urine Urobilinogen 0.2, Ur Leukocyte Esterase Trace
[2023-04-25 13:06] VITALS: BP 134/86; PULSE 68; RESP 18; TEMP 36.8; O2SAT 98
== END 2023-04-25 13:06 | disposition home or self-care (01) ==
PROVIDERS: Emergency Provider Nurse Practitioner; PCP Internal Medicine
DX: M54.59 Other low back pain (principal); R10.31 Right lower quadrant pain; R39.9 Unspecified symptoms and signs involving the genitourinary system; I10 Essential (primary) hypertension
CPT/HCPCS: 81003; 99212; 99213; G0463

== ENCOUNTER 2023-05-09 21:12 | Outpatient (CLI) | payer MEDICAID, SELFPAY | END 2023-05-09 23:59 | LOC: LAB.DROPOF 21:12 | PROVIDERS: PCP Family Medicine; Visit Provider Family Medicine | DX: N76.0 Acute vaginitis (principal); N39.0 Urinary tract infection, site not specified | CPT/HCPCS: 87086 ==

== ENCOUNTER 2023-05-24 14:23 | Outpatient (CLI) | payer MEDICAID, SELFPAY ==
--- NOTE | 2023-05-24 14:43 | XR_ITS ---
FINAL REPORT CLINICAL HISTORY: foot painf FINDINGS: Left foot Three views were obtained. There is no acute fracture or dislocation. There are mild degenerative changes. Plantar calcaneal spur is identified. No soft tissue abnormality is identified. IMPRESSION: Mild degenerative changes. Reviewed, Interpreted and Dictated by Andrew Barnes III, MD Transcribed by Sue Gorman Authenticated and . [facility]
--- NOTE | 2023-05-24 14:43 | XR_ITS ---
FINAL REPORT CLINICAL HISTORY: foot pain FINDINGS: Right foot Three views were obtained. There is no acute fracture or dislocation. There are mild degenerative changes. Plantar calcaneal spur is identified. No soft tissue abnormality is identified. IMPRESSION: Mild degenerative changes. Reviewed, Interpreted and Dictated by Andrew Barnes III, MD Transcribed by Sue Gorman Authenticated and [facility]
[2023-05-24 15:15] LABS: Basophils % 0.6 % (0.1-2.0); Eosinophils # 0.1 K/mm3 (0.0-0.4); Eosinophils % 1.7 % (0.1-12.0); Hematocrit 40.2 % (37.0-47.0); Hemoglobin 13.3 g/dL (12.2-16.2); Lymphocytes # 2.3 K/mm3 (0.7-4.5); Lymphocytes % 30.4 % (10-50); Mean Corpuscular HGB Conc 33.2 g/dL (31.8-35.4); Mean Corpuscular Hemoglobin 30.4 pg (27.0-31.2); Mean Corpuscular Volume 91.6 fl (81-99); Mean Platelet Volume 8.2 fl (7.4-10.4); Monocytes # 0.4 K/mm3 (0.1-1.0); Monocytes % 5.1 % (1.7-9.3); Neutrophils # 4.7 K/mm3 (1.8-7.8); Neutrophils % 62.3 % (37.0-80.0); Platelet Count 262 K/mm3 (142-424); Red Blood Count 4.38 M/mm3 (4.20-5.40); Red Cell Distribution Width 13.4 % (11.5-17.5); White Blood Count 7.5 K/mm3 (4.8-10.8)
[2023-05-24 15:31] LABS: Chloride 106 mmol/L (98-107); Potassium 4.6 mmoL/L (3.5-5.1); Sodium 141 mmol/L (136-145)
[2023-05-24 15:33] LABS: Blood Urea Nitrogen 13 mg/dl (7-17); Estimated Glomerular Filt Rate 125 ml/min (>60); GFR (African American) 151 ML/MIN (>60)
[2023-05-24 15:34] LABS: Alanine Aminotransferase 17 U/L (12-78); Albumin Level 4.1 g/dl (3.5-5.0); Albumin/Globulin Ratio 1.4 (1.1-1.8); Alkaline Phosphatase 100 U/L (38-126); Anion Gap 8.6 mEq/L (5-15); Aspartate Amino Transferase 23 U/L (14-36); Bilirubin,Total 0.4 mg/dl (0.2-1.3); Calcium 9.2 mg/dl (8.4-10.2); Carbon Dioxide 31 mmol/L (22.0-30.0); Chol/HDL Ratio 3.5 (1-3.5); Cholesterol 212 mg/dl (140-200); Glucose 133 mg/dl (74-100); HDL Cholesterol 60 mg/dl (40-60); Total Protein,Serum 7.1 g/dl (6.3-8.2); Triglycerides 161 mg/dl (30-150); VLDL Cholesterol 32 mg/dL (0-40)
[2023-05-24 16:04] LABS: Thyroid Stimulating Hormone 0.64 uIU/mL (0.465-4.68)
[2023-05-24 16:07] LABS: Direct LDL Cholesterol 105.46 mg/dL (100-129)
== END 2023-05-24 23:59 ==
LOC: LAB 14:24
PROVIDERS: PCP Family Medicine; Visit Provider Family Medicine
DX: I10 Essential (primary) hypertension (principal); E78.5 Hyperlipidemia, unspecified; M79.671 Pain in right foot; M79.672 Pain in left foot
CPT/HCPCS: 36415; 73630; 80053; 80061; 84443; 85025

== ENCOUNTER 2023-08-17 09:14 | Emergency (ER) | payer MEDICAID, SELFPAY ==
--- NOTE | 2023-08-17 09:53 | XR_ITS ---
FINAL REPORT CLINICAL HISTORY: fall FINDINGS: LEFT KNEE 3 views of the left knee were obtained. There is no acute fracture or dislocation. Visualized joint spaces are normally aligned. There are mild degenerative changes. Chondrocalcinosis is noted. Soft tissues are unremarkable. IMPRESSION: No acute bony abnormality. Reviewed, Interpreted and Dictated by Ray Cotto MD Transcribed by Racquel Ritter Authenticated and [facility]
--- NOTE | 2023-08-17 09:53 | XR_ITS ---
FINAL REPORT CLINICAL HISTORY: fall FINDINGS: LEFT HAND Three views demonstrate no acute fracture or dislocation. There are advanced degenerative changes of the first carpometacarpal joint. Mild degenerative changes are seen of the IP joints. The visualized joint spaces are normally aligned. The soft tissues are unremarkable. IMPRESSION: No acute process. Reviewed, Interpreted and Dictated by Ray Cotto MD Transcribed by Racquel Ritter Authenticated and [facility]
[2023-08-17 10:00] VITALS: BP 126/78; PULSE 64; RESP 20; TEMP 36.5; O2SAT 97; BMI 34.4
--- NOTE | 2023-08-17 10:07 | ED_ITS ---
Discharge Plan Disposition Patient Disposition: Home, Self-Care Condition: Good Prescriptions Prescriptions: No Action prenat.vits,melvina,[id number]-ostjf Tablet 1 tab PO DAILY Qty: 90 3RF propranolol 60 mg capsule,extended release 24 hr See Rx Instructions .ROUTE .COMPLEX Qty: 90 1RF Dose Instruction: TAKE ONE CAPSULE BY MOUTH ONCE A DAY Rx Instructions: TAKE ONE CAPSULE BY MOUTH ONCE A DAY sumatriptan succinate [Imitrex] 100 mg tablet 100 mg PO Q2H PRN (Reason: migraine headache) Qty: 9 5RF Rx Instructions: do not exceed 2 doses per 24 hrs ergocalciferol (vitamin D2) 1,250 mcg (50,000 unit) capsule See Rx Instructions .ROUTE .COMPLEX Qty: 5 3RF Dose Instruction: TAKE ONE CAPSULE BY MOUTH EVERY WEEK Rx Instructions: TAKE ONE CAPSULE BY MOUTH EVERY WEEK furosemide 20 mg tablet See Rx Instructions .ROUTE .COMPLEX Qty: 30 0RF Dose Instruction: TAKE ONE TABLET BY MOUTH ONCE A DAY NEEDED FOR EDEMA Rx Instructions: TAKE ONE TABLET BY MOUTH ONCE A DAY NEEDED FOR EDEMA levofloxacin 500 mg tablet 500 mg PO Q24H Qty: 10 0RF prednisone 20 mg tablet 20 mg PO .COMPLEX Qty: 15 0RF Rx Instructions: 20 mg orally BID x 5 days then daily x 5 days dextromethorphan-guaifenesin 60-1,200 mg tablet extended release 12 hr 1 tab PO Q12H Qty: 60 0RF albuterol sulfate 90 mcg/actuation HFA aerosol inhaler See Rx Instructions .ROUTE .COMPLEX Qty: 18 10RF Dose Instruction: INHALE 1 PUFF BY MOUTH EVERY 4 TO 6 HOURS NEEDED FOR SHORTNESS OF BREATH OR WHEEZING Rx Instructions: INHALE 1 PUFF BY MOUTH EVERY 4 TO 6 HOURS NEEDED FOR SHORTNESS OF BREATH OR WHEEZING albuterol sulfate 2.5 mg /3 mL (0.083 %) solution for nebulization See Rx Instructions .ROUTE .COMPLEX Qty: 180 0RF Dose Instruction: INHALE CONTENTS OF 1 VIAL VIA NEBULIZER UP TO FOUR TIMES A DAY NEEDED FOR SHORTNESS OF AIR Rx Instructions: INHALE CONTENTS OF 1 VIAL VIA NEBULIZER UP TO FOUR TIMES A DAY NEEDED FOR SHORTNESS OF AIR ropinirole 1 mg tablet See Rx Instructions .ROUTE .COMPLEX Qty: 60 0RF Dose Instruction: TAKE ONE TABLET BY MOUTH AT BEDTIME FOR 7 DAYS THEN INCREASE TO 2 TABLETS AT BEDTIME IF NOT EFFECTIVVE Rx Instructions: TAKE ONE TABLET BY MOUTH AT BEDTIME FOR 7 DAYS THEN INCREASE TO 2 TABLETS AT BEDTIME IF NOT EFFECTIVVE terbinafine HCl 250 mg tablet See Rx Instructions .ROUTE .COMPLEX Qty: 28 0RF Dose Instruction: TAKE ONE TABLET BY MOUTH ONCE A DAY FOR 12 WEEKS Rx Instructions: TAKE ONE TABLET BY MOUTH ONCE A DAY FOR 12 WEEKS Referrals Follow up/Referrals: Bruce Schmitz, [Primary Care Provider] - See instructions Activity Restrictions/Add. Instructions Additional Instructions/Restrictions: *weight bearing as tolerated *RICE, Rest the extremity, Ice 15-20 minutes 3-4 times daily, Compress- wear the britton wrap as discussed as much as possible to help reduce swelling and pain, Elevate the extremity when at rest *Britton wrap is for support and help control swelling, use it except in the shower. Be sure that is not to tight but not to loose either *Elevate when resting? *Ibuprofen 600-800mg every 6-8 hours as needed for pain an inflammation. If need something more can take Tylenol in between doses of Ibuprofen to help Immediately follow up with your family doctor for new or worsening of symptom s, or no noticeable improvement over the next 3-5 days Clinical Impressions Clinical Impression: Fall Instructions Patient Instructions: DI for Knee Sprain, DI for Contusion Discharge ED Provider: Valerie Lieberman [facility] [place] General Stated complaint: left knee pain no accident Time Seen by Provider: 08/17/23 10:08 History of Present Illness Provider Complaint: Patient states that she fell a couple days ago and landed on her left hand and left knee States that she wasnt having that much pain but this morning she woke up and was having pain and swelling in her left knee and her h and was hurting so she came in to get it checked Related Data Previous Rx's Medication Instructions Recorded prenat.vits,melvina,xfb-swex-sibzr 1 tab PO DAILY #90 tabs 10/06/22 ergocalciferol (vitamin D2) 1,250 See Rx Instructions .Route 03/13/23 mcg (50,000 unit) capsule .COMPLEX #5 caps furosemide 20 mg tablet See Rx Instructions .Route 03/13/23 .COMPLEX #30 tabs propranolol 60 mg capsule,24 See Rx Instructions .Route 05/09/23 hr,extended release .COMPLEX #90 caps sumatriptan succinate 100 mg 100 mg PO Q2H PRN migraine 05/09/23 tablet (Imitrex) headache #9 tabs albuterol sulfate 90 mcg/actuation See Rx Instructions .Route 06/28/23 aerosol inhaler .COMPLEX #18 grams dextromethorphan-guaifenesin ER 60 1 tab PO Q12H #60 tabs 06/28/23 mg-1,200 mg tab,extend release,12hr levofloxacin 500 mg tablet 500 mg PO Q24H #10 tabs 06/28/23 prednisone 20 mg tablet 20 mg PO .COMPLEX #15 tabs 06/28/23 albuterol sulfate 2.5 mg/3 mL See Rx Instructions .Route 07/19/23 (0.083 %) solution for nebulization .COMPLEX #180 mL ropinirole 1 mg tablet See Rx Instructions .Route 08/14/23 .COMPLEX #60 tabs terbinafine HCl 250 mg tablet See Rx Instructions .Route 08/14/23 .COMPLEX #28 tabs Allergies Allergy/AdvReac Type Severity Reaction Status Date / Time hydrocodone [HYDROCODONE] Allergy Unknown Verified 06/28/23 09:32 Penicillins [PENICILLINS] Allergy Unknown Verified 06/28/23 09:32 [facility] Disclaimer: The information contained in this section may have been updated after the patient was seen, as this information can be updated by other users. Medical History Vaginitis RLS (restless legs syndrome) Migraines Diverticulitis Abnormal EKG Bilateral arm pain Sinus bradycardia Chest pain Cervical spondylosis Sciatic nerve pain Asthma Hypertension Surgical History No pertinent past surgical history Family History Family/Other No significant family history Social History Smoking Status: Never smoker alcohol intake: never substance use type: denies use current occupational status: unemployed Travel in the last 8 weeks: None household members: spouse housing: house caffeine: Yes ROS Obtained: Yes All systems reviewed & no additional complaints except as documented and Yes Systems reviewed as appropriate & no additional complaints except as documented Constitutional Constitutional: Reports system reviewed and no additional complaints, except as documented and Reports as per HPI ENT Ears, Nose, Mouth, and Throat: Reports system reviewed and no additional complaints, except as documented and Reports as per HPI Cardiovascular Cardiovascular: Reports system reviewed and no additional complaints, except as documented and Reports as per HPI Respiratory Respiratory: Reports system reviewed and no additional complaints, except as documented and Reports as per HPI Gastrointestinal Gastrointestingal: Reports system reviewed and no additional complaints, except as documented and as per HPI Genitourinary Female Genitourinary: Reports system reviewed and no additional complaints, except as documented and Reports as per HPI Musculoskeletal Musculoskeletal: Reports system reviewed and no additional complaints, except as documented, Reports as per HPI and Reports other Comments: Pain in left knee and left hand after falling 2 days ago Physical Exam General General appearance: alert and in no apparent distress ENT ENT exam: Present mucous membranes moist Respiratory Respiratory exam: Present normal lung sounds bilaterally; Absent respiratory distress or wheezes Cardiovascular Cardiovascular exam: Present regular rate, normal rhythm and normal heart sounds Expanded Upper Extremity Exam Left: Hand exam: Present tenderness and swelling Expanded Lower Extremity Exam Left: Knee exam: Present tenderness and swelling Lower leg exam: Present normal inspection Ankle exam: Present normal inspection Foot/toe exam: Present normal inspection Neurological Exam Neurological exam: Present alert, oriented X3 and normal gait Medical Decision Making Olu Inquiry Pt receiving controlled substance: No Olu was queried for this patient: No Orders (Tests/Meds): ORDERS Category Date Time Status Hand XR left minimum 3 views [XR hand LT min 3V] Stat Exams 08/17/23 09:53 Ordered XR knee LT 3V Stat Exams 08/17/23 09:53 Ordered Radiology Data #1: Image(s): Hand Image Reviewed: Yes I have reviewed radiologist's interpretation IMPRESSION: No acute process. #2: Image(s): Knee Image Reviewed: Yes I have reviewed radiologist's interpretation IMPRESSION: No acute bony abnormality. Procedures Orthopedic Splinting/Casting Injury #1: Side: left Upper Extremity Injury Location: hand Upper Extremity Immobilizer: Britton wrap Lower Extremity Injury Location: knee Lower Extremity Immobilizer: Britton wrap Post Cast/Splinting Neuro Status: intact and no change Post Cast/Splinting Vasc Status: intact and no change
[2023-08-17 11:00] VITALS: BP 126/78; PULSE 64; RESP 20; TEMP 36.5; O2SAT 97
== END 2023-08-17 11:02 | disposition home or self-care (01) ==
PROVIDERS: Emergency Provider Nurse Practitioner; PCP Internal Medicine
DX: M25.562 Pain in left knee (principal); M79.642 Pain in left hand; W19.XXXA Unspecified fall, initial encounter
CPT/HCPCS: 73130; 73562; 99212; 99214; G0463

== ENCOUNTER 2023-12-21 09:47 | Outpatient (CLI) | payer MEDICAID, SELFPAY | END 2023-12-21 23:59 | disposition home or self-care (01) | LOC: LAB.DROPOF 12-24 09:47 | PROVIDERS: PCP Nurse Practitioner Family; Visit Provider Nurse Practitioner Family | DX: R39.9 Unspecified symptoms and signs involving the genitourinary system (principal) | CPT/HCPCS: 87086 ==

== ENCOUNTER 2024-01-04 10:08 | Outpatient (CLI) | payer MEDICAID, SELFPAY | END 2024-01-04 23:59 | disposition home or self-care (01) | LOC: LAB.DROPOF 01-07 10:09 | PROVIDERS: PCP Nurse Practitioner Family; Visit Provider Nurse Practitioner Family | DX: N39.0 Urinary tract infection, site not specified (principal); A49.9 Bacterial infection, unspecified | CPT/HCPCS: 87086 ==

== ENCOUNTER 2024-01-29 10:01 | Outpatient (CLI) | payer MEDICAID, SELFPAY ==
--- NOTE | 2024-01-29 10:01 | CT_ITS ---
FINAL REPORT CLINICAL HISTORY: Umbilical Hernia COMPARISON: 03/01/2022 FINDINGS: CT ABDOMEN Axial CT images of the abdomen were performed without contrast. Sagittal and coronal reconstruction images were provided. This study was performed with techniques to keep radiation doses as low as reasonably achievable (ALARA). Individualized dose reduction techniques using automated exposure control or adjustment of mA and/or kV according to the patient's size were employed. ABDOMEN: The lung bases are clear. The liver is homogeneous. The gallbladder is surgically absent. The spleen, pancreas, adrenal glands, and kidneys are unremarkable. There is a complex, fat-containing umbilical hernia. The hernia defect measures up to 1 cm. There is some stranding in the hernia fat. No herniated bowel is seen. IMPRESSION: Complex, fat-containing umbilical hernia not significantly changed from the prior exam. Reviewed, Interpreted and Dictated by Kurtis Ruby MD Transcribed by Geri Torres Authenticated and [facility]
== END 2024-01-29 23:59 | disposition home or self-care (01) ==
LOC: RAD 10:01
PROVIDERS: PCP Family Medicine; Visit Provider Family Medicine
DX: K42.9 Umbilical hernia without obstruction or gangrene (principal)
CPT/HCPCS: 74150

== ENCOUNTER 2024-02-12 14:30 | Outpatient (CLI) | payer MEDICAID, SELFPAY | END 2024-02-12 23:59 | disposition home or self-care (01) | LOC: LAB.DROPOF 02-13 13:16 | PROVIDERS: PCP Nurse Practitioner; Visit Provider Nurse Practitioner | DX: N30.00 Acute cystitis without hematuria (principal) | CPT/HCPCS: 87086 ==

== ENCOUNTER 2024-03-11 14:54 | Emergency (ER) | payer MEDICAID, SELFPAY ==
[2024-03-11 15:07] LABS: Apearance,Urine Clear (Clear); Bilirubin,Urine Negative (Negative); Blood, Urine Trace (Negative); Color,Urine Yellow (Yellow); Glucose,Urine (UA) Negative (Negative); Ketones,Urine Negative (Negative); PH,Urine 5.5 (5.0-8.5); Protein,Urine Negative (Negative); Urobilinogen,Urine 0.2 EU/dl (0.2)
[2024-03-11 15:08] LABS: UTC Leukocyte Esterase,Urine 1+ (Negative); UTC Nitrate,Urine Negative (Negative)
[2024-03-11 15:42] VITALS: BP 139/90; PULSE 59; RESP 20; TEMP 36.7; O2SAT 98; BMI 38.7
--- NOTE | 2024-03-11 16:03 | EXP.UTC ---
Discharge Plan Disposition Patient Disposition: Home, Self-Care Condition: Good Prescriptions Prescriptions: New nitrofurantoin monohyd/m-cryst [Macrobid] 100 mg capsule 100 mg PO Q12H 7 Days Qty: 14 0RF Rx Instructions: must administer with a meal/food No Action ciprofloxacin HCl 500 mg tablet 500 mg PO BID 7 Days Qty: 14 0RF ergocalciferol (vitamin D2) 1,250 mcg (50,000 unit) capsule See Rx Instructions .ROUTE .COMPLEX Qty: 5 3RF Dose Instruction: TAKE ONE CAPSULE BY MOUTH EVERY WEEK Rx Instructions: TAKE ONE CAPSULE BY MOUTH EVERY WEEK albuterol sulfate 90 mcg/actuation HFA aerosol inhaler See Rx Instructions .ROUTE .COMPLEX Qty: 18 10RF Dose Instruction: INHALE 1 PUFF BY MOUTH EVERY 4 TO 6 HOURS NEEDED FOR SHORTNESS OF BREATH OR WHEEZING Rx Instructions: INHALE 1 PUFF BY MOUTH EVERY 4 TO 6 HOURS NEEDED FOR SHORTNESS OF BREATH OR WHEEZING albuterol sulfate 2.5 mg /3 mL (0.083 %) solution for nebulization See Rx Instructions .ROUTE .COMPLEX Qty: 180 0RF Dose Instruction: INHALE CONTENTS OF 1 VIAL VIA NEBULIZER UP TO FOUR TIMES A DAY NEEDED FOR SHORTNESS OF AIR Rx Instructions: INHALE CONTENTS OF 1 VIAL VIA NEBULIZER UP TO FOUR TIMES A DAY NEEDED FOR SHORTNESS OF AIR Referrals Follow up/Referrals: Ryan Hebert MD [Primary Care Provider] - See instructions Activity Restrictions/Add. Instructions Additional Instructions/Restrictions: *Increase fluids. Water not Soda or Tea *Start antibiotic immediately and be sure to take as ordered for the FULL length of time although you should start to see improvement over the next 48 hours *Be SURE to follow up anytime for new or worsening symptoms with your family doctor. AND in 48 hours for urine culture results with your family doctor, if you do not have a doctor then you may call back to the [facility] for urine culture results and further treatment. We do recommend that you choose and establish care with a Primary Care Physician. ?AND follow up with them ?in 10-14 days to repeat UA to ensure infection is resolved and blood no longer present *Be sure to let your PCP know that we sent urine cultures from the [facility] so they can follow up to ensure that you area the on the correct antibiotic Call your doctor office and make appointment for 48 hours (2 days from today) ?to follow up and get the results of your urine culture and further treatment Clinical Impressions Clinical Impression: UTI (urinary tract infection) Instructions Patient Instructions: DI for Urinary Tract Infection (UTI), Urinary Tract Infection, Nitrofurantoin Print Language Print Language: Slovenian Discharge ED Provider: Valerie Lieberman [facility] [place] General Stated complaint: pain, burning with urination, back pain Mode of Arrival: Ambulatory Source of Information: Patient Time Seen by Provider: 03/11/24 16:04 Description of Symptoms (Recalled from Triage Doc. by RN): UTI S/S X 2MONTHS, PAIN IN LOWER BACK AREA HEENT Symptoms (Recalled from RN notes): No Resp Symptoms (Recalled from RN notes): No Skin Symptoms (Recalled from RN notes): No MS Symptoms (Recalled from RN notes): No Functional Status (Recalled from RN notes): wnl History of Present Illness Provider Complaint: Pt states that for the last couple of months she has been having uti's frequently States that she started again with symptoms States that she feels like she has been having urgency and frequency and achy like feeling on and off in her lower back like she has had with the other UTI's Denies fever, denies abdominal pain denies body aches or chills Related Data Previous Rx's ?Medication ?Instructions ?Recorded albuterol sulfate 2.5 mg/3 mL See Rx Instructions .Route 02/12/24 (0.083 %) solution for nebulization .COMPLEX #180 mL albuterol sulfate 90 mcg/actuation See Rx Instructions .Route 02/12/24 aerosol inhaler .COMPLEX #18 grams ciprofloxacin HCl 500 mg tablet 500 mg PO BID 7 days #14 tabs 02/12/24 ergocalciferol (vitamin D2) 1,250 See Rx Instructions .Route 02/12/24 mcg (50,000 unit) capsule .COMPLEX #5 caps nitrofurantoin 100 mg PO Q12H 7 days #14 caps 03/11/24 monohydrate/macrocrystals 100 mg capsule (Macrobid) Allergies Allergy/AdvReac Type Severity Reaction Status Date / Time hydrocodone (HYDROCODONE) Allergy Unknown Verified 02/12/24 14:12 Penicillins (PENICILLINS) Allergy Unknown Verified 02/12/24 14:12 Worker's Comp Is this a Worker's Comp case?: No [facility] Disclaimer: The information contained in this section may have been updated after the patient was seen, as this information can be updated by other users. Medical History (Updated 03/11/24 @ 16:14 by Valerie Lieberman APRN) Onychomycosis Normal colonoscopy Vaginitis RLS (restless legs syndrome) Migraines Diverticulitis Abnormal EKG Bilateral arm pain Sinus bradycardia Chest pain Cervical spondylosis Sciatic nerve pain Asthma Hypertension Surgical History No pertinent past surgical history Family History Family/Other No significant family history Social History Smoking Status: Never smoker alcohol intake: never substance use type: denies use current occupational status: unemployed household members: spouse housing: house caffeine: Yes ROS Obtained: Yes All systems reviewed & no additional complaints except as documented and Yes Systems reviewed as appropriate & no additional complaints except as documented Constitutional Constitutional: Reports system reviewed and no additional complaints, except as documented, Reports as per HPI, Denies body ache, Denies chills and Denies fever(s) ENT Ears, Nose, Mouth, and Throat: Reports system reviewed and no additional complaints, except as documented and Reports as per HPI Cardiovascular Cardiovascular: Reports system reviewed and no additional complaints, except as documented and Reports as per HPI Respiratory Respiratory: Reports system reviewed and no additional complaints, except as documented and Reports as per HPI Gastrointestinal Gastrointestingal: Reports system reviewed and no additional complaints, except as documented and as per HPI; Denies abdominal pain Genitourinary Female Genitourinary: Reports system reviewed and no additional complaints, except as documented, Reports as per HPI, Reports dysuria (at times), Reports urinary frequency and Reports urinary urgency Physical Exam General General appearance: alert and in no apparent distress ENT ENT exam: Present normal exam, normal oropharynx, mucous membranes moist and TM's normal bilaterally Respiratory Respiratory exam: Present normal lung sounds bilaterally; Absent respiratory distress or wheezes Cardiovascular Cardiovascular exam: Present regular rate, normal rhythm and normal heart sounds Abdominal Exam Abdominal exam: Present soft and normal bowel sounds; Absent distention or tenderness Neurological Exam Neurological exam: Present alert, oriented X3 and normal gait Medical Decision Making Medical Records Screening: Per USPSTF and CDC recommendations, given the prevalence of disease in our region, it is our hospital?s policy to screen for HIV and viral Hepatitis for all patients aged 18 and over and those with ongoing risk factors. Olu Inquiry Pt receiving controlled substance: No Olu was queried for this patient: No Vital Signs: 03/11/24 15:42 Temperature 98.1 F Temperature Source Oral Pulse Rate [Left Radial] 59 L Respiratory Rate 20 Blood Pressure [Left Arm] 139/90 Blood Pressure Mean [Left Arm] 106 02 Sat by Pulse Oximetry 98 Lab Data Lab results reviewed: Yes I reviewed the patient's lab results. Lab Results 03/11/24 15:06: Urine Color Yellow, Urine Appearance Clear, Urine pH 5.5, Ur Specific [place] 1.020, Urine Protein Negative, Urine Glucose (UA) Negative, Urine Ketones Negative, Urine Blood Trace, Urine Nitrate Negative, Urine Bilirubin Negative, Urine Urobilinogen 0.2, Ur Leukocyte Esterase 1+ A Orders (Tests/Meds): ORDERS Category Date Time Status Urine Culture Stat Micro 03/11/24 15:02 Received
[2024-03-11 16:19] VITALS: BP 139/90; PULSE 59; RESP 20; TEMP 36.7
== END 2024-03-11 16:24 | disposition home or self-care (01) ==
PROVIDERS: Emergency Provider Nurse Practitioner; PCP Family Medicine
DX: N39.0 Urinary tract infection, site not specified (principal)
CPT/HCPCS: 81003; 87086; 99213; G0381

== ENCOUNTER 2024-04-18 20:21 | Emergency (ER) | payer MEDICAID, SELFPAY ==
[2024-04-18 20:23] VITALS: BP 134/70; PULSE 72; RESP 18; TEMP 36.4; O2SAT 97; BMI 37.5
[2024-04-18 21:02] LABS: Microscopic, Urine URINE MICROSCOPIC (MICROSCOPIC)
[2024-04-18 21:09] LABS: Bilirubin,Urine Negative (Negative); Blood, Urine Negative (Negative); Color,Urine YELLOW (Yellow); Glucose,Urine (UA) Negative (Negative); Ketones,Urine Negative (Negative); Leukocyte Esterase,Urine 1+ (Negative); Nitrate,Urine Negative (Negative); Protein,Urine Negative (Negative); Specific Gravity, Urine >= 1.030 (1.005-1.030); Urobilinogen,Urine 0.2 EU/dl (0.2)
[2024-04-18 21:12] LABS: Appearance,Urine Slightly Cloudy (Clear)
[2024-04-18 21:17] LABS: Bacteria,Urine Trace /lpf; Squamous Epithelial Cell,Urine Occasional #/hpf (0-5)
[2024-04-18] MEDS: ACETAMINOPHEN 500MG TAB 1000 MG PO (21:19)
[2024-04-18 21:20] LABS: Albumin Level 4.2 g/dl (3.5-5.0); Chloride 102 mmol/L (98-107); Potassium 4.1 mmoL/L (3.5-5.1); Sodium 140 mmol/L (136-145)
[2024-04-18] MEDS: KETOROLAC 30MG/ML VIAL 15 MG IV (21:20)
[2024-04-18] MEDS: LACTATED RINGERS 1000ML 1,000 ML 999 ML IV (21:20)
[2024-04-18 21:22] LABS: Eosinophils # 0.1 K/mm3 (0.0-0.4); Eosinophils % 1.5 % (0.1-12.0); Lymphocytes # 3.3 K/mm3 (0.7-4.5); Mean Platelet Volume 10.2 fl (7.4-10.4); Monocytes # 0.8 K/mm3 (0.1-1.0); White Blood Count 9.2 K/mm3 (4.8-10.8)
[2024-04-18 21:23] LABS: Alanine Aminotransferase 19 U/L (12-78); Albumin/Globulin Ratio 1.4 (1.1-1.8); Alkaline Phosphatase 90 U/L (38-126); Anion Gap 10.1 mEq/L (5-15); Aspartate Amino Transferase 25 U/L (14-36); Bilirubin,Total 0.3 mg/dl (0.2-1.3); Blood Urea Nitrogen 23 mg/dl (7-17); Calcium 9.2 mg/dl (8.4-10.2); Carbon Dioxide 32 mmol/L (22.0-30.0); Creatinine Clearance Estimated 99 mL/min (50-200); Estimated Glomerular Filt Rate 85 ml/min (>60); GFR (African American) 102 ML/MIN (>60); Glucose 104 mg/dl (74-100); Total Protein,Serum 7.2 g/dl (6.3-8.2)
[2024-04-18 21:28] LABS: Basophils # 0.1 K/mm3 (0-0.2); Basophils % 0.8 % (0.1-2.0); Hematocrit 38.9 % (37.0-47.0); Hemoglobin 12.5 g/dL (12.2-16.2); Lymphocytes % 36.1 % (10-50); Mean Corpuscular HGB Conc 32.1 g/dL (31.8-35.4); Mean Corpuscular Volume 90.3 fl (81-99); Monocytes % 8.3 % (1.7-9.3); Neutrophils # 4.9 K/mm3 (1.8-7.8); Neutrophils % 53.1 % (37.0-80.0); Platelet Count 254 K/mm3 (142-424); Red Blood Count 4.31 M/mm3 (4.20-5.40)
[2024-04-18 22:13] LABS: HIV Combo NEGATIVE (Negative)
--- NOTE | 2024-04-18 22:36 | ED_ITS ---
Discharge Plan Disposition Patient Disposition: Home, Self-Care Prescriptions Prescriptions: New methocarbamol 750 mg tablet 1,500 mg PO TID 5 Days Qty: 30 0RF No Action ciprofloxacin HCl 500 mg tablet 500 mg PO BID 7 Days Qty: 14 0RF ergocalciferol (vitamin D2) 1,250 mcg (50,000 unit) capsule See Rx Instructions .ROUTE .COMPLEX Qty: 5 3RF Dose Instruction: TAKE ONE CAPSULE BY MOUTH EVERY WEEK Rx Instructions: TAKE ONE CAPSULE BY MOUTH EVERY WEEK albuterol sulfate 90 mcg/actuation HFA aerosol inhaler See Rx Instructions .ROUTE .COMPLEX Qty: 18 10RF Dose Instruction: INHALE 1 PUFF BY MOUTH EVERY 4 TO 6 HOURS NEEDED FOR SHORTNESS OF BREATH OR WHEEZING Rx Instructions: INHALE 1 PUFF BY MOUTH EVERY 4 TO 6 HOURS NEEDED FOR SHORTNESS OF BREATH OR WHEEZING albuterol sulfate 2.5 mg /3 mL (0.083 %) solution for nebulization See Rx Instructions .ROUTE .COMPLEX Qty: 180 0RF Dose Instruction: INHALE CONTENTS OF 1 VIAL VIA NEBULIZER UP TO FOUR TIMES A DAY NEEDED FOR SHORTNESS OF AIR Rx Instructions: INHALE CONTENTS OF 1 VIAL VIA NEBULIZER UP TO FOUR TIMES A DAY NEEDED FOR SHORTNESS OF AIR furosemide 40 mg tablet 40 mg PO DAILY PRN (Reason: edema) Qty: 30 2RF sumatriptan succinate 100 mg tablet See Rx Instructions PO .COMPLEX Qty: 14 10RF Rx Instructions: take 1 tab at onset of headache; if no relief, may repeat 1 tab after at least 2 hrs; max = 2 tabs/24 hrs PO nitrofurantoin monohyd/m-cryst [Macrobid] 100 mg capsule 100 mg PO Q12H 7 Days Qty: 14 0RF Rx Instructions: must administer with a meal/food Referrals Follow up/Referrals: Ryan Hebert MD [Primary Care Provider] - See instructions Activity Restrictions/Add. Instructions Additional Instructions/Restrictions: Call your family doctor to establish care for this visit to the emergency department and schedule follow-up within 48 hours to ensure improvement. If you have any worsening of your condition or any other concerning signs or symptoms, return to the emergency department or your primary care doctor for further evaluation. Talk to family doctor about the back pain that you are having and if you need to have muscle relaxer, this has been sent to the pharmacy for you. Clinical Impressions Clinical Impression: Back spasm Instructions Patient Instructions: DI for Urinary Tract Infection (UTI), DI for Urinary Tract Infection in Children Print Language Print Language: Palestinian Discharge ED Provider: Feliciano Wilson General Adult HPI General Chief complaint: Urogenital-Female Stated complaint: lower back pain abd pain Time Seen by Provider: 04/18/24 20:46 Mode of Arrival: Ambulatory Source of Information: Patient Limitations: No Limitations Description of Symptoms (Recalled from ER Triage Doc. by RN): Pt ambulatory to ED with c/o left lower back/ flank pain X2 months. Pt reports she has had UTIs and kidney infections for the past few months and has had several different antibiotics. Pt also reports frequent urination. History of Present Illness HPI narrative: Please note that above description of symptoms, in this electronic medical record under categorization of recalled from ER triage doctor by RN are reflective of an initial nursing assessment, however, is not reflective of my full history and physical exam that was personally taken and clarified. Consequentially, this preceding description of symptoms, which may include the patient's categorized chief complaint in the EMR, do not reflect my personal clinical impression, and the ultimate description of history of present illness and patient stated complaints should be deferred to this section of the note. Unless stated otherwise or congruent with this section of the note, additional signs, symptoms, or incongruence should be interpreted as inaccurate with my clinical impression. Related Data Previous Rx's ?Medication ?Instructions ?Recorded albuterol sulfate 90 mcg/actuation See Rx Instructions .Route 02/12/24 aerosol inhaler .COMPLEX #18 grams ciprofloxacin HCl 500 mg tablet 500 mg PO BID 7 days #14 tabs 02/12/24 ergocalciferol (vitamin D2) 1,250 See Rx Instructions .Route 02/12/24 mcg (50,000 unit) capsule .COMPLEX #5 caps nitrofurantoin 100 mg PO Q12H 7 days #14 caps 03/11/24 monohydrate/macrocrystals 100 mg capsule (Macrobid) albuterol sulfate 2.5 mg/3 mL See Rx Instructions .Route 04/14/24 (0.083 %) solution for nebulization .COMPLEX #180 mL furosemide 40 mg tablet 40 mg PO DAILY PRN edema #30 tabs 04/14/24 sumatriptan succinate 100 mg tablet See Rx Instructions PO .COMPLEX 04/17/24 #14 tabs methocarbamol 750 mg tablet 1,500 mg (2 x 750 mg) PO TID 5 04/18/24 days #30 tabs Allergies Allergy/AdvReac Type Severity Reaction Status Date / Time hydrocodone (HYDROCODONE) Allergy Unknown Verified 02/12/24 14:12 Penicillins (PENICILLINS) Allergy Unknown Verified 02/12/24 14:12 [facility] Disclaimer: The information contained in this section may have been updated after the patient was seen, as this information can be updated by other users. Medical History (Updated 04/18/24 @ 22:37 by Feliciano Wilson MD) Onychomycosis Normal colonoscopy Vaginitis RLS (restless legs syndrome) Migraines Diverticulitis Abnormal EKG Bilateral arm pain Sinus bradycardia Chest pain Cervical spondylosis Sciatic nerve pain Asthma Hypertension Surgical History No pertinent past surgical history Family History Family/Other No significant family history Social History Smoking Status: Never smoker alcohol intake: never substance use type: denies use current occupational status: unemployed Travel in the last 8 weeks: None household members: spouse housing: house caffeine: Yes Have you lived/traveled outside [place] in past 30 days?: No Contact w/someone who lives/traveled outside [place] past 30 days?: No Exposure to someone with infectious disease in past 14 days?: No Do you have a fever (greater than 100.4 F or 38 C)?: No Have you tested positive for COVID-19: No Exposed to someone with COVID-19 in past 14 days?: No Do you have a sore throat?: No Do you have a cough?: No Do you have any weakness?: Yes Do you have any diarrhea?: No Are you experiencing any unusual bleeding?: No Do you have any muscle aches/pain?: No Do you have any abdominal pain?: No Are you experiencing loss of taste or smell?: No Other Medical History Have you received the Flu Vaccine for this season: No Have you received the Pneumonia Vaccine: No ROS Obtained: Yes All systems reviewed & no additional complaints except as documented Physical Exam General General appearance: alert Head Head exam: atraumatic and normocephalic Eye Eye exam: Present normal appearance, PERRL and EOMI Neck Neck exam: Present normal inspection, full ROM and trachea midline Respiratory Respiratory exam: Absent respiratory distress, wheezes, stridor, accessory muscle use or prolonged expiratory phase Cardiovascular Cardiovascular exam: Present other (Pulses equal symmetric in upper and lower extremities) Abdominal Exam Abdominal exam: Present soft; Absent distention, tenderness or pulsatile mass Extremities Exam Extremities exam: Absent edema Neurological Exam Neurological exam: Present alert, oriented X3 and CN II-XII intact; Absent motor sensory deficit Skin Skin exam: Present warm and dry; Absent diaphoresis or erythema Medical Decision Making Medical Records Medical records reviewed: Yes I reviewed the patient's medical records. Screening: Per USPSTF and CDC recommendations, given the prevalence of disease in our region, it is our hospital?s policy to screen for HIV and viral Hepatitis for all patients aged 18 and over and those with ongoing risk factors. Olu Inquiry Pt receiving controlled substance: No Olu was queried for this patient: No Vital Signs: 04/18/24 20:23 04/18/24 23:04 Temperature 97.6 F 97.6 F Temperature Source Oral Oral Pulse Rate 51 L Pulse Rate [Right Radial] 72 Respiratory Rate 18 18 Blood Pressure 102/66 L Blood Pressure [Right Arm] 134/70 Blood Pressure Mean [Right Arm] 91 Blood Pressure Source Automatic Cuff Blood Pressure Source [Right Arm] Automatic Cuff Blood Pressure Position Sitting Blood Pressure Position [Right Arm] Sitting 02 Sat by Pulse Oximetry 97 Oxygen Delivery Method Room Air Room Air Lab Data Lab Results 04/18/24 20:39: Urine Color Yellow, Urine Appearance Slightly cloudy, Urine pH 6.0, Ur Specific [place] >= 1.030, Urine Protein Negative, Urine Glucose (UA) Negative, Urine Ketones Negative, Urine Blood Negative, Urine Nitrate Negative, Urine Bilirubin Negative, Urine Urobilinogen 0.2, Ur Leukocyte Esterase 1+ A, Urine RBC None, Urine WBC 5-10, Ur Squamous Epith Cells Occasional, Urine Bacteria Trace 04/18/24 20:58: WBC 9.2, RBC 4.31, Hgb 12.5, Hct 38.9, MCV 90.3, MCH 29.0, MCHC 32.1, RDW 13.0, Plt Count 254, MPV 10.2, Neut % (Auto) 53.1, Lymph % (Auto) 36.1, [place] % (Auto) 8.3, Eos % (Auto) 1.5, Baso % (Auto) 0.8, Neut # (Auto) 4.9, Lymph # (Auto) 3.3, [place] # (Auto) 0.8, Eos # (Auto) 0.1, Baso # (Auto) 0.1, Sodium 140, Potassium 4.1, Chloride 102, Carbon Dioxide 32 H, Anion Gap 10.1, B UN 23 H, Creatinine 0.70, Estimated Creat Clear 99, Estimated GFR 85, Est GFR ( Amer) 102, Glucose 104 H, Calcium 9.2, Total Bilirubin 0.3, AST 25, ALT 19, Alkaline Phosphatase 90, Total Protein 7.2, Albumin 4.2, Globulin 3.0, Albumin/Globulin Ratio 1.4, HIV Ag/Ab Combo Qual Negative 04/18/24 20:58 04/18/24 20:58 Orders (Tests/Meds): ED MEDICATIONS Discontinued Medications Generic Name Dose Route Start Last Admin Trade Name Jamari PRN Reason Stop Dose Admin Acetaminophen 1,000 mg 04/18/24 21:02 04/18/24 21:19 Acetaminophen 500mg Tab PO 04/18/24 21:03 1,000 mg ONCE ONE Administration Lactated Ringer's 1,000 mls @ 999 mls/hr 04/18/24 21:02 04/18/24 21:20 Lactated Ringer's 1000 Ml Bag IV 04/18/24 22:02 999 mls/hr .Q1H1M ONE Administration Ketorolac Tromethamine 15 mg 04/18/24 21:02 04/18/24 21:20 Ketorolac 30mg/Ml Vial IV 04/18/24 21:03 15 mg ONCE ONE Administration ORDERS Category Date Time Status CMP [Comprehensive Metabolic Panel] Stat Lab 04/18/24 20:58 Completed Complete Blood Count Auto Diff Stat Lab 04/18/24 20:58 Completed HIV Combo Stat Lab 04/18/24 20:58 Completed Hep C Ab with Reflex to RNA Stat Lab 04/18/24 20:58 Received Urinalysis and Microscopic Stat Lab 04/18/24 20:39 Completed Urine Culture Stat Micro 04/18/24 20:39 Received Medical Decision Narrative: This is a 63-year-old female presenting with left-sided back pain. She states this been going on for a couple of days seems to be getting worse. States that it is worse with changes of motion. No urinary symptoms, fevers, chills, nausea, vomiting, abdominal pain and it does not radiate. Came in for further evaluation. History obtained with patient. On arrival, very clinically well and speaking in full sentences does not appear to be in any acute distress. She does have some midline spinal tenderness just superior to this and muscle spasm left paraspinal muscles. No flank tenderness with percussion. No abdominal tenderness. Abdomen soft, nontender, nondistended. Overlying skin changes. Differential includes nephrolithiasis, pyelonephritis, back spasm, among others. Labs ordered, urine ordered. Patient was given Toradol for pain control. Urinalysis negative, kidney function normal, normal CBC. Imaging was discussed, but shared decision making landed on this not being performed today. Patient has no clinical signs of decompensation, afebrile, no systemic signs or symptoms, benign exam. She is neuro intact and walking without issue. Patient feels okay going home with muscle relaxer Robaxin and I feel this is appropriate. Because patient at baseline without signs or symptoms of clinical decompensation, deemed appropriate for discharge. Results were relayed to patient who voiced understanding and were agreeable to outpatient management and follow up. I discussed my clinical impression with patient and answered all questions. At this time, the evidence for any other entities in the differential is insufficient to warrant any further testing or ED observation. This was explained as well. Advisory was given that persistent or worsening symptoms require further evaluation. I confirmed the understanding of this discussion. Hardware Engineering Manager disclaimer Much of this encounter note is an electronic graphic designer spoken language to printed text. Electronic graphic designer of the spoken language may permit errors. Although I have reviewed the note, some errors may still exist. Critical Care Critical Care Time Critical Care Time: No
[2024-04-18 23:04] VITALS: BP 102/66; PULSE 51; RESP 18; TEMP 36.4; O2SAT 97
[2024-04-20 09:08] LABS: HCV Ab Non Reactive (Non Reactive)
--- NOTE | 2024-04-21 08:18 | PC.NURSE ---
URINE CULTURE DISCUSSED WITH DR POWELL, NO NEW ORDERS
== END 2024-04-18 23:05 | disposition home or self-care (01) ==
PROVIDERS: Emergency Provider Emergency Medicine; PCP Family Medicine
DX: M62.830 Muscle spasm of back (principal); M54.50 Low back pain, unspecified; R35.0 Frequency of micturition
CPT/HCPCS: 80053; 81001; 85025; 86803; 87086; 87088; 87186; 87389; 96361; 96374; 99283; J1885; J7120

== ENCOUNTER 2024-06-05 18:41 | Emergency (ER) | payer MEDICAID, SELFPAY ==
[2024-06-05 19:18] VITALS: BP 152/89; PULSE 59; RESP 18; TEMP 36.8; O2SAT 99; BMI 38.3
[2024-06-05 19:26] LABS: Microscopic, Urine URINE MICROSCOPIC (MICROSCOPIC)
[2024-06-05 19:27] LABS: Appearance,Urine CLEAR (Clear); Bilirubin,Urine Negative (Negative); Blood, Urine TRACE-I (Negative); Color,Urine YELLOW (Yellow); Glucose,Urine (UA) Negative (Negative); Ketones,Urine Negative (Negative); Leukocyte Esterase,Urine 3+ (Negative); Nitrate,Urine Negative (Negative); PH,Urine 5.5 (5.0-8.5); Protein,Urine Negative (Negative); Urobilinogen,Urine 0.2 EU/dl (0.2)
[2024-06-05 19:48] LABS: Bacteria,Urine 3+ /lpf; Squamous Epithelial Cell,Urine 20-50 #/hpf (0-5); WBC,Urine 20-50 #/hpf (0-3)
[2024-06-05 20:30] VITALS: BP 146/91; PULSE 99; O2SAT 95
--- NOTE | 2024-06-05 20:43 | ED_ITS ---
Discharge Plan Disposition Patient Disposition: Left Against Medical Advice Prescriptions Prescriptions: No Action ciprofloxacin HCl 500 mg tablet 500 mg PO BID 7 Days Qty: 14 0RF ergocalciferol (vitamin D2) 1,250 mcg (50,000 unit) capsule See Rx Instructions .ROUTE .COMPLEX Qty: 5 3RF Dose Instruction: TAKE ONE CAPSULE BY MOUTH EVERY WEEK Rx Instructions: TAKE ONE CAPSULE BY MOUTH EVERY WEEK albuterol sulfate 90 mcg/actuation HFA aerosol inhaler See Rx Instructions .ROUTE .COMPLEX Qty: 18 10RF Dose Instruction: INHALE 1 PUFF BY MOUTH EVERY 4 TO 6 HOURS NEEDED FOR SHORTNESS OF BREATH OR WHEEZING Rx Instructions: INHALE 1 PUFF BY MOUTH EVERY 4 TO 6 HOURS NEEDED FOR SHORTNESS OF BREATH OR WHEEZING albuterol sulfate 2.5 mg /3 mL (0.083 %) solution for nebulization See Rx Instructions .ROUTE .COMPLEX Qty: 180 0RF Dose Instruction: INHALE CONTENTS OF 1 VIAL VIA NEBULIZER UP TO FOUR TIMES A DAY NEEDED FOR SHORTNESS OF AIR Rx Instructions: INHALE CONTENTS OF 1 VIAL VIA NEBULIZER UP TO FOUR TIMES A DAY NEEDED FOR SHORTNESS OF AIR furosemide 40 mg tablet 40 mg PO DAILY PRN (Reason: edema) Qty: 30 2RF sumatriptan succinate 100 mg tablet See Rx Instructions .ROUTE .COMPLEX Qty: 9 0RF Dose Instruction: TAKE 1 TABLET BY MOUTH AT ONSET OF MIGRAINE, THEN MAY REPEAT 1 TIME IN 2 HOURS IF NO RELIEF. MAX OF 2 IN 24 HOURS. Rx Instructions: TAKE 1 TABLET BY MOUTH AT ONSET OF MIGRAINE, THEN MAY REPEAT 1 TIME IN 2 HOURS IF NO RELIEF. MAX OF 2 IN 24 HOURS. methocarbamol 750 mg tablet 1,500 mg PO TID 5 Days Qty: 30 0RF nitrofurantoin monohyd/m-cryst [Macrobid] 100 mg capsule 100 mg PO Q12H 7 Days Qty: 14 0RF Rx Instructions: must administer with a meal/food Referrals Follow up/Referrals: Ryan Hebert MD [Primary Care Provider] - See instructions Clinical Impressions Clinical Impression: Back pain, Pain in right leg, Nausea Print Language Print Language: Bengali Discharge ED Provider: Lacey Christensen General Adult HPI General Chief complaint: PAIN Stated complaint: pain on right side of body leg,arm,back Time Seen by Provider: 06/05/24 20:28 Mode of Arrival: Ambulatory Source of Information: Patient Limitations: No Limitations Description of Symptoms (Recalled from ER Triage Doc. by RN): pt presents with c/o right sided leg pain x 4 days. pt denies any injuries. Pt states pain came on gradually and has progressively become worse. Pt states she is having flank pain that radiates down to her leg. History of Present Illness HPI narrative: This patient is a 63-year-old female with a history of obesity, sciatic nerve pain, hypertension, Crohn's disease, restless legs presenting to the emergency department for evaluation of concern for bilateral low back pain and pain going down her right leg. No redness, warmth, skin changes to her right leg. Pain is worse with movement. She states that she is concerned she has an infection. She think she might have a kidney infection given her back pain, though she does not know any dysuria, urinary frequency, urinary urgency. She also denies any fevers. She does note nausea and she states she is having a hard time having a bowel movements. She states she really has to try. She notes that she has been told that she has a hernia that is inside but it is going to the back instead of the front, she states that she is concerned that it is exploding. No recent falls or traumatic injuries. No numbness, tingling, saddle anesthesia. Related Data Previous Rx's ?Medication ?Instructions ?Recorded albuterol sulfate 90 mcg/actuation See Rx Instructions .Route 02/12/24 aerosol inhaler .COMPLEX #18 grams ciprofloxacin HCl 500 mg tablet 500 mg PO BID 7 days #14 tabs 02/12/24 ergocalciferol (vitamin D2) 1,250 See Rx Instructions .Route 02/12/24 mcg (50,000 unit) capsule .COMPLEX #5 caps nitrofurantoin 100 mg PO Q12H 7 days #14 caps 03/11/24 monohydrate/macrocrystals 100 mg capsule (Macrobid) albuterol sulfate 2.5 mg/3 mL See Rx Instructions .Route 04/14/24 (0.083 %) solution for nebulization .COMPLEX #180 mL methocarbamol 750 mg tablet 1,500 mg (2 x 750 mg) PO TID 5 04/18/24 days #30 tabs furosemide 40 mg tablet 40 mg PO DAILY PRN edema #30 tabs 05/12/24 sumatriptan succinate 100 mg tablet See Rx Instructions .Route 05/12/24 .COMPLEX #9 tabs Allergies Allergy/AdvReac Type Severity Reaction Status Date / Time hydrocodone (HYDROCODONE) Allergy Unknown Verified 02/12/24 14:12 Penicillins (PENICILLINS) Allergy Unknown Verified 02/12/24 14:12 [facility] Disclaimer: The information contained in this section may have been updated after the patient was seen, as this information can be updated by other users. Medical History Onychomycosis Normal colonoscopy Vaginitis RLS (restless legs syndrome) Migraines Diverticulitis Abnormal EKG Bilateral arm pain Sinus bradycardia Chest pain Cervical spondylosis Sciatic nerve pain Asthma Hypertension Surgical History No pertinent past surgical history Family History Family/Other No significant family history Social History Smoking Status: Never smoker alcohol intake: never substance use type: denies use current occupational status: unemployed Travel in the last 8 weeks: None household members: spouse housing: house caffeine: Yes Have you lived/traveled outside US in past 30 days?: No Contact w/someone who lives/traveled outside US past 30 days?: No Exposure to someone with infectious disease in past 14 days?: No Do you have a fever (greater than 100.4 F or 38 C)?: No Have you tested positive for COVID-19: No Exposed to someone with COVID-19 in past 14 days?: No Do you have a sore throat?: No Do you have a cough?: No Do you have any weakness?: No Do you have any diarrhea?: No Are you experiencing any unusual bleeding?: No Do you have any muscle aches/pain?: No Do you have any abdominal pain?: No Are you experiencing loss of taste or smell?: No Other Medical History Have you received the Flu Vaccine for this season: No Have you received the Pneumonia Vaccine: No ROS Obtained: Yes All systems reviewed & no additional complaints except as documented Physical Exam General General appearance: alert, in no apparent distress and obese Head Head exam: atraumatic and normocephalic Eye Eye exam: Present normal appearance, PERRL and EOMI ENT ENT exam: Present normal exam, normal oropharynx, mucous membranes moist and normal external ear exam Neck Neck exam: Present normal inspection, full ROM and trachea midline; Absent tenderness Chest Chest inspection: Present normal inspection and symmetric chest wall rise; Absent tenderness Respiratory Respiratory exam: Present normal lung sounds bilaterally; Absent respiratory distress, wheezes, stridor or accessory muscle use Cardiovascular Cardiovascular exam: Present regular rate and normal rhythm Abdominal Exam Abdominal exam: Absent distention, tenderness (Low back), guarding, rebound or rigidity Extremities Exam Extremities exam: Present normal inspection, full ROM and normal capillary refill; Absent tenderness or edema Back Exam Back exam: Present full ROM and tenderness Back 1 view image: 2 1. TTP, no stepoff or deformity Neurological Exam Neurological exam: Present alert, oriented X3, CN II-XII intact and normal gait; Absent motor sensory deficit Psychiatric Psychiatric exam: Present normal affect and normal mood Skin Skin exam: Present warm and dry Medical Decision Making Medical Records Medical records reviewed: Yes I reviewed the patient's medical records. Screening: Per USPSTF and CDC recommendations, given the prevalence of disease in our region, it is our hospital?s policy to screen for HIV and viral Hepatitis for all patients aged 18 and over and those with ongoing risk factors. Olu Inquiry Pt receiving controlled substance: No Vital Signs: 06/05/24 19:18 06/05/24 20:30 06/05/24 20:55 Temperature 98.3 F 98.1 F Temperature Source Oral Pulse Rate 99 H 59 L Pulse Rate [Right] 59 L Respiratory Rate 18 16 Blood Pressure 146/91 H 146/91 H Blood Pressure [Right Arm] 152/89 H Blood Pressure Mean [Right Arm] 110 Blood Pressure Position Sitting Blood Pressure Position [Right Arm] Sitting 02 Sat by Pulse Oximetry 99 95 Oxygen Delivery Method Room Air Room Air Lab Data Lab results reviewed: Yes I reviewed the patient's lab results. Lab Results 06/05/24 19:23: Urine Color Yellow, Urine Appearance Clear, Urine pH 5.5, Ur Specific [employer] 1.020, Urine Protein Negative, Urine Glucose (UA) Negative, Urine Ketones Negative, Urine Blood Trace-i, Urine Nitrate Negative, Urine Bilirubin Negative, Urine Urobilinogen 0.2, Ur Leukocyte Esterase 3+ A, Urine RBC 5-10, Urine WBC 20-50, Ur Squamous Epith Cells 20-50, Urine Bacteria 3+ Orders (Tests/Meds): ED MEDICATIONS Discontinued Medications Generic Name Dose Route Start Last Admin Trade Name Jamari PRN Reason Stop Dose Admin Acetaminophen 1,000 mg 06/05/24 20:35 Acetaminophen 500mg Tab PO 06/05/24 20:36 ONCE ONE Ketorolac Tromethamine 15 mg 06/05/24 20:35 Ketorolac 30mg/Ml Vial IV 06/05/24 20:36 ONCE ONE Lidocaine 1 each 06/05/24 20:35 Lidocaine 5% Transdermal Patch TP 06/05/24 20:36 ONCE ONE Methocarbamol 500 mg 06/05/24 20:36 Methocarbamol 500mg Tablet PO 06/05/24 20:37 ONCE ONE ORDERS Category Date Time Status Urinalysis and Microscopic Stat Lab 06/05/24 19:23 Completed Urine Culture Stat Micro 06/05/24 19:23 Received Medical Decision Narrative: In summary, this patient is a 63-year-old female presenting to the Emergency Department for evaluation of low back pain, right leg pain. She also notes multiple other complaints, stating that she is afraid that she has an internal hernia that is exploding, she is afraid she has a urinary tract infection. She is having trouble pooping and is having nausea. Differential diagnoses considered include but are not limited to musculoskeletal strain/sprain, sciatica, cystitis, pyelonephritis, colitis, constipation. Ruling out the most morbid conditions drove assessment. It should be noted patient's history includes obesity, hypertension, diverticulosis, migraines, Crohn's disease which may or may not be at goal therapy. This complicates all aspects of care by increasing patient's risk for morbidity. I reviewed patient's past medical records and noted previous evaluations for back pain in the past. On exam, the patient has tenderness to palpation over low back, pain is worse with movement, pain is going down her right leg without obvious abnormality on external exam of her right leg. I will compartments are soft, she is neurovascularly intact distally with no alarm findings concerning for cauda equina syndrome or spinal cord compression. I feel she likely has musculoskeletal pain with low back pain with sciatica. Given her multitude of complaints, I recommended obtaining Noncon's of her abdomen and pelvis as well as basic labs and urinalysis. Patient states that she was not thinking she was going to be here very long because she needs to go pick her child up. Given this, she left AMA prior to any workup or evaluation being obtained. Critical Care Critical Care Time Critical Care Time: No
--- NOTE | 2024-06-05 20:50 | PC.NURSE ---
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
--- NOTE | 2024-06-05 20:51 | PC.NURSE ---
Pt agrees to sign out AMA at this time.
[2024-06-05 20:55] VITALS: BP 146/91; PULSE 59; RESP 16; TEMP 36.7; O2SAT 97
== END 2024-06-05 20:57 | disposition left against medical advice (07) ==
PROVIDERS: Emergency Provider Emergency Medicine; PCP Family Medicine
DX: M54.50 Low back pain, unspecified (principal); M79.604 Pain in right leg; R11.0 Nausea; R15.0 Incomplete defecation; Z53.29 Procedure and treatment not carried out because of patient's decision for other reasons
CPT/HCPCS: 81001; 87086; 99283

== ENCOUNTER 2024-06-07 17:56 | Emergency (ER) | payer MEDICAID, SELFPAY ==
[2024-06-07 17:57] VITALS: BP 132/93; PULSE 59; RESP 18; TEMP 36.6; O2SAT 95; BMI 38.3
--- NOTE | 2024-06-07 18:23 | XR_ITS ---
PROCEDURE INFORMATION: Exam: XR Right Hip Exam date and time: 06/07/2024 6:30 PM Age: 63 years old Clinical indication: Hip pain; Right hip TECHNIQUE: Imaging protocol: Radiologic exam of the right hip. Views: 2 or 3 views hip with pelvis when performed. COMPARISON: CT ABDOMEN PELVIS WO CON 03/01/2022 10:11 AM FINDINGS: Bones/joints: Mild right hip osteoarthritis. No acute fracture or dislocation. There are mild degenerative changes of the sacroiliac joints. Soft tissues: Unremarkable. IMPRESSION: No acute findings.
--- NOTE | 2024-06-07 18:28 | ED_ITS ---
<Statement entered by Renan Liu MD - 06/07/24 23:05> I was consulted by the ASYA, and we discussed the complexity of the problems being addressed. I approved the treatment and management plan for this patient's care in the emergency department, thus performing a substantive portion of the medical decision making. Renan Liu MD, ALMA, FACEP Discharge Plan Disposition Patient Disposition: Home, Self-Care Condition: Good Prescriptions Prescriptions: New valacyclovir 1 gram tablet 1,000 mg PO BID 14 Days Qty: 28 0RF prednisone 20 mg tablet 20 mg PO BID 5 Days Qty: 10 0RF hydroxyzine HCl 25 mg tablet 25 mg PO Q8H PRN (Reason: itching) Qty: 30 0RF No Action ciprofloxacin HCl 500 mg tablet 500 mg PO BID 7 Days Qty: 14 0RF ergocalciferol (vitamin D2) 1,250 mcg (50,000 unit) capsule See Rx Instructions .ROUTE .COMPLEX Qty: 5 3RF Dose Instruction: TAKE ONE CAPSULE BY MOUTH EVERY WEEK Rx Instructions: TAKE ONE CAPSULE BY MOUTH EVERY WEEK albuterol sulfate 90 mcg/actuation HFA aerosol inhaler See Rx Instructions .ROUTE .COMPLEX Qty: 18 10RF Dose Instruction: INHALE 1 PUFF BY MOUTH EVERY 4 TO 6 HOURS NEEDED FOR SHORTNESS OF BREATH O R WHEEZING Rx Instructions: INHALE 1 PUFF BY MOUTH EVERY 4 TO 6 HOURS NEEDED FOR SHORTNESS OF BREATH OR WHEEZING albuterol sulfate 2.5 mg /3 mL (0.083 %) solution for nebulization See Rx Instructions .ROUTE .COMPLEX Qty: 180 0RF Dose Instruction: INHALE CONTENTS OF 1 VIAL VIA NEBULIZER UP TO FOUR TIMES A DAY NEEDED FOR SHORTNESS OF AIR Rx Instructions: INHALE CONTENTS OF 1 VIAL VIA NEBULIZER UP TO FOUR TIMES A DAY NEEDED FOR SHORTNESS OF AIR furosemide 40 mg tablet 40 mg PO DAILY PRN (Reason: edema) Qty: 30 2RF sumatriptan succinate 100 mg tablet See Rx Instructions .ROUTE .COMPLEX Qty: 9 0RF Dose Instruction: TAKE 1 TABLET BY MOUTH AT ONSET OF MIGRAINE, THEN MAY REPEAT 1 TIME IN 2 HOURS IF NO RELIEF. MAX OF 2 IN 24 HOURS. Rx Instructions: TAKE 1 TABLET BY MOUTH AT ONSET OF MIGRAINE, THEN MAY REPEAT 1 TIME IN 2 HOURS IF NO RELIEF. MAX OF 2 IN 24 HOURS. methocarbamol 750 mg tablet 1,500 mg PO TID 5 Days Qty: 30 0RF nitrofurantoin monohyd/m-cryst [Macrobid] 100 mg capsule 100 mg PO Q12H 7 Days Qty: 14 0RF Rx Instructions: must administer with a meal/food Referrals Follow up/Referrals: Ryan Hbeert MD [Primary Care Provider] - See instructions Activity Restrictions/Add. Instructions Additional Instructions/Restrictions: Follow-up with primary care provider on Sunday as scheduled. You may need further workup for your hip pain. Take meds as directed for shingles. If any worsening signs or symptoms occur please return to the ED or follow-up with primary care physician Clinical Impressions Clinical Impression: Acute hip pain, Shingles Instructions Patient Instructions: DI for Shingles, DI for Low Back Pain, DI for Hip Pain Print Language Print Language: Kazakh Discharge ED Provider: Renan Liu General Adult HPI General Chief complaint: Back Pain/Injury Stated complaint: rash on lower back Time Seen by Provider: 06/07/24 18:12 Mode of Arrival: Ambulatory Source of Information: Patient Limitations: No Limitations Description of Symptoms (Recalled from ER Triage Doc. by RN): Patient reports being seen the other day for back pain. States she had to leave because of her s on. Returns today with complaint of her back continuing to hurt and a rash that has come up on her back. History of Present Illness HPI narrative: 63-year-old female presents to the ED today for complaint of right hip pain that goes down to her knee. She says that it is aching stabbing pain. She tells me that she did have back pain when she was here the other night when she had to leave. She says she does have low back pain but this back pain does not feel like it goes down her leg. She feels like the initial start of the pain is in her hip that moves down her right leg. Patient does state that she has a rash that started yesterday. She is unsure where this rash came from. It does have vesicles and is erythematous and itches. No fevers or chills. No nausea, vomiting or diarrhea. No other symptoms. No saddle anesthesias or bowel or bladder problems Related Data Previous Rx's ?Medication ?Instructions ?Recorded albuterol sulfate 90 mcg/actuation See Rx Instructions .Route 02/12/24 aerosol inhaler .COMPLEX #18 grams ciprofloxacin HCl 500 mg tablet 500 mg PO BID 7 days #14 tabs 02/12/24 ergocalciferol (vitamin D2) 1,250 See Rx Instructions .Route 02/12/24 mcg (50,000 unit) capsule .COMPLEX #5 caps nitrofurantoin 100 mg PO Q12H 7 days #14 caps 03/11/24 monohydrate/macrocrystals 100 mg capsule (Macrobid) albuterol sulfate 2.5 mg/3 mL See Rx Instructions .Route 04/14/24 (0.083 %) solution for nebulization .COMPLEX #180 mL methocarbamol 750 mg tablet 1,500 mg (2 x 750 mg) PO TID 5 04/18/24 days #30 tabs furosemide 40 mg tablet 40 mg PO DAILY PRN edema #30 tabs 05/12/24 sumatriptan succinate 100 mg tablet See Rx Instructions .Route 05/12/24 .COMPLEX #9 tabs hydroxyzine HCl 25 mg tablet 25 mg PO Q8H PRN itching #30 tabs 06/07/24 prednisone 20 mg tablet 20 mg PO BID 5 days #10 tabs 06/07/24 valacyclovir 1 gram tablet 1,000 mg PO BID 14 days #28 tabs 06/07/24 Allergies Allergy/AdvReac Type Severity Reaction Status Date / Time hydrocodone (HYDROCODONE) Allergy Unknown Verified 02/12/24 14:12 Penicillins (PENICILLINS) Allergy Unknown Verified 02/12/24 14:12 [facility] Disclaimer: The information contained in this section may have been updated after the patient was seen, as this information can be updated by other users. Medical History Onychomycosis Normal colonoscopy Vaginitis RLS (restless legs syndrome) Migraines Diverticulitis Abnormal EKG Bilateral arm pain Sinus bradycardia Chest pain Cervical spondylosis Sciatic nerve pain Asthma Hypertension Surgical History No pertinent past surgical history Family History Family/Other No significant family history Social History Smoking Status: Unknown if ever smoked alcohol intake: never substance use type: denies use current occupational status: unemployed Travel in the last 8 weeks: None household members: spouse housing: house caffeine: Yes Have you lived/traveled outside US in past 30 days?: No Contact w/someone who lives/traveled outside US past 30 days?: No Exposure to someone with infectious disease in past 14 days?: No Do you have a fever (greater than 100.4 F or 38 C)?: No Have you tested positive for COVID-19: No Exposed to someone with COVID-19 in past 14 days?: No Do you have a sore throat?: No Do you have a cough?: No Do you have any weakness?: No Do you have any diarrhea?: No Are you experiencing any unusual bleeding?: No Do you have any muscle aches/pain?: No Do you have any abdominal pain?: No Are you experiencing loss of taste or smell?: No Other Medical History Have you received the Flu Vaccine for this season: No Have you received the Pneumonia Vaccine: No ROS Obtained: Yes Systems reviewed as appropriate & no additional complaints except as documented Constitutional Constitutional: Reports as per HPI Physical Exam General General appearance: alert and in no apparent distress Head Head exam: atraumatic and normocephalic Eye Eye exam: Present normal appearance, PERRL and EOMI ENT ENT exam: Present normal exam, normal oropharynx and mucous membranes moist Neck Neck exam: Present full ROM and trachea midline Respiratory Respiratory exam: Present normal lung sounds bilaterally Cardiovascular Cardiovascular exam: Present regular rate, normal rhythm, normal heart sounds, +S1 and +S2 Extremities Exam Extremities exam: Present full ROM and normal capillary refill Back Exam Back exam: Present other (Vesicular rash on the right side of her spine) Neurological Exam Neurological exam: Present alert, oriented X3 and normal gait Skin Skin exam: Present warm, dry, rash and erythema Medical Decision Making Medical Records Screening: Per USPSTF and CDC recommendations, given the prevalence of disease in our region, it is our hospital?s policy to screen for HIV and viral Hepatitis for a ll patients aged 18 and over and those with ongoing risk factors. Olu Inquiry Pt receiving controlled substance: No Olu was queried for this patient: No Vital Signs: 06/07/24 17:57 06/07/24 19:01 06/07/24 19:30 Temperature 97.8 F Temperature Source Oral Pulse Rate 57 L 56 L Pulse Rate [Radial] 59 L Respiratory Rate 18 Blood Pressure 118/74 118/77 Blood Pressure [Right Arm] 132/93 H Blood Pressure Mean [Right Arm] 106 Blood Pressure Source Blood Pressure Source [Right Arm] Automatic Cuff Blood Pressure Position Blood Pressure Position [Right Arm] Sitting 02 Sat by Pulse Oximetry 95 97 98 Oxygen Delivery Method Room Air 06/07/24 20:27 Temperature 97.9 F Temperature Source Oral Pulse Rate 74 Pulse Rate [Radial] Respiratory Rate 18 Blood Pressure 128/72 Blood Pressure [Right Arm] Blood Pressure Mean [Right Arm] Blood Pressure Source Automatic Cuff Blood Pressure Source [Right Arm] Blood Pressure Position Supine Blood Pressure Position [Right Arm] 02 Sat by Pulse Oximetry Oxygen Delivery Method Room Air Orders (Tests/Meds): ED MEDICATIONS Discontinued Medications Generic Name Dose Route Start Last Admin Trade Name Dellq PRN Reason Stop Dose Admin Ketorolac Tromethamine 30 mg 06/07/24 18:23 06/07/24 19:02 Ketorolac 30mg/Ml Vial IM 06/07/24 18:24 30 mg ONCE ONE Administration Orphenadrine Citrate 30 mg 06/07/24 18:23 06/07/24 19:03 Orphenadrine Citrate 60mg/2ml Vial IM 06/07/24 18:24 30 mg ONCE ONE Administration ORDERS Category Date Time Status Hip XR right minimum 2 views [XR hip RT 2-3V w/pelvis] Exams 06/07/24 18:23 Completed Stat Medical Decision Narrative: Insert review patient is a 63-year-old female presenting to the emergency department for evaluation of right hip pain moving down to her right knee. She states that the it feels like throbbing pain. She has had no injury. Patient also has a rash on her right back that appears to be shingles. Patient is hemodynamically stable and nontoxic-appearing upon arrival, afebrile. Differential diagnosis includes shingles, viral rash, sciatica, pelvic strain or sprain among others. Workup will be conducted with pelvic imaging, pain re lievers for her right hip. Initial inventions include pain relievers for her right hip and x-rays to evaluate her right hip pain. Initial workup reviewed by me. Imaging informally interpreted by me and remarkable for nothing acute. Formal imaging read remarkable for nothing acute. Patient stable for discharge home Critical Care Critical Care Time Critical Care Time: No
[2024-06-07 19:01] VITALS: BP 118/74; PULSE 57; O2SAT 97
[2024-06-07] MEDS: KETOROLAC 30MG/ML VIAL 30 MG IM (19:02)
[2024-06-07] MEDS: ORPHENADRINE CITRATE 60MG/2ML VIAL 30 MG IM (19:03)
[2024-06-07 19:30] VITALS: BP 118/77; PULSE 56; O2SAT 98
[2024-06-07 20:27] VITALS: BP 128/72; PULSE 74; RESP 18; TEMP 36.6; O2SAT 98
== END 2024-06-07 20:33 | disposition home or self-care (01) ==
PROVIDERS: Emergency Provider Student in an Organized Health Care Education/Training Program; PCP Family Medicine
DX: B02.9 Zoster without complications (principal); M54.50 Low back pain, unspecified; R21 Rash and other nonspecific skin eruption; M25.551 Pain in right hip
CPT/HCPCS: 73502; 96372; 99283; J1885; J2360

== ENCOUNTER 2024-06-17 00:04 | Emergency (ER) | payer MEDICAID, SELFPAY ==
[2024-06-17 00:06] VITALS: BP 147/98; PULSE 88; RESP 20; TEMP 36.9; O2SAT 95; BMI 38.3
[2024-06-17 00:31] LABS: Basophils % 0.2 % (0.1-2.0); Hematocrit 41.3 % (37.0-47.0); Hemoglobin 14.1 g/dL (12.2-16.2); Lymphocytes # 1.1 K/mm3 (0.7-4.5); Lymphocytes % 11.2 % (10-50); Mean Corpuscular HGB Conc 34.1 g/dL (31.8-35.4); Mean Corpuscular Hemoglobin 29.9 pg (27.0-31.2); Mean Corpuscular Volume 87.5 fl (81-99); Mean Platelet Volume 9.8 fl (7.4-10.4); Monocytes # 0.9 K/mm3 (0.1-1.0); Monocytes % 9.9 % (1.7-9.3); Neutrophils # 7.3 K/mm3 (1.8-7.8); Neutrophils % 78.5 % (37.0-80.0); Platelet Count 181 K/mm3 (142-424); Red Blood Count 4.72 M/mm3 (4.20-5.40); Red Cell Distribution Width 13.7 % (11.5-17.5); White Blood Count 9.4 K/mm3 (4.8-10.8)
[2024-06-17] MEDS: ONDANSETRON 4MG/2ML VIAL 4 MG IV (00:31)
[2024-06-17 00:42] LABS: Chloride 97 mmol/L (98-107)
[2024-06-17 00:43] LABS: Albumin Level 4.7 g/dl (3.5-5.0); Potassium 3.3 mmoL/L (3.5-5.1); Sodium 131 mmol/L (136-145)
--- NOTE | 2024-06-17 00:43 | ED_ITS ---
Discharge Plan Disposition Patient Disposition: Home, Self-Care Prescriptions Prescriptions: New ondansetron HCl 4 mg tablet 4 mg PO Q8H PRN (Reason: nausea and vomiting) 5 Days Qty: 30 0RF vancomycin [Vancocin] 125 mg capsule 125 mg PO Q6H 10 Days Qty: 40 0RF No Action ergocalciferol (vitamin D2) 1,250 mcg (50,000 unit) capsule See Rx Instructions .ROUTE .COMPLEX Qty: 5 3RF Dose Instruction: TAKE ONE CAPSULE BY MOUTH EVERY WEEK Rx Instructions: TAKE ONE CAPSULE BY MOUTH EVERY WEEK albuterol sulfate 90 mcg/actuation HFA aerosol inhaler See Rx Instructions .ROUTE .COMPLEX Qty: 18 10RF Dose Instruction: INHALE 1 PUFF BY MOUTH EVERY 4 TO 6 HOURS NEEDED FOR SHORTNESS OF BREATH OR WHEEZING Rx Instructions: INHALE 1 PUFF BY MOUTH EVERY 4 TO 6 HOURS NEEDED FOR SHORTNESS OF BREATH OR WHEEZING propranolol 60 mg capsule,extended release 24 hr 60 mg PO QHS hydroxyzine HCl 25 mg tablet 25 mg PO Q8H PRN (Reason: itching) Qty: 30 0RF albuterol sulfate 2.5 mg /3 mL (0.083 %) solution for nebulization See Rx Instructions .ROUTE .COMPLEX Qty: 180 0RF Dose Instruction: INHALE CONTENTS OF 1 VIAL VIA NEBULIZER UP TO FOUR TIMES A DAY NEEDED FOR SHORTNESS OF AIR Rx Instructions: INHALE CONTENTS OF 1 VIAL VIA NEBULIZER UP TO FOUR TIMES A DAY NEEDED FOR SHORTNESS OF AIR furosemide 40 mg tablet 40 mg PO DAILY PRN (Reason: edema) Qty: 30 2RF sumatriptan succinate 100 mg tablet See Rx Instructions .ROUTE .COMPLEX Qty: 9 0RF Dose Instruction: TAKE 1 TABLET BY MOUTH AT ONSET OF MIGRAINE, THEN MAY REPEAT 1 TIME IN 2 HOURS IF NO RELIEF. MAX OF 2 IN 24 HOURS. Rx Instructions: TAKE 1 TABLET BY MOUTH AT ONSET OF MIGRAINE, THEN MAY REPEAT 1 TIME IN 2 HOURS IF NO RELIEF. MAX OF 2 IN 24 HOURS. methocarbamol 750 mg tablet 1,500 mg PO TID 5 Days Qty: 30 0RF propranolol 60 mg capsule,extended release 24 hr 60 mg PO DAILY valacyclovir 1 gram tablet 1,000 mg PO BID 14 Days Qty: 28 0RF prednisone 20 mg tablet 20 mg PO BID 5 Days Qty: 10 0RF Referrals Follow up/Referrals: Ryan Hebert MD [Primary Care Provider] - See instructions Activity Restrictions/Add. Instructions Additional Instructions/Restrictions: We will call you if there is an abnormality on your stool sample. Please follow-up with your primary care provider. Please return to the emergency department if you develop any new or worsening symptoms or become concerned for your health. Clinical Impressions Clinical Impression: Nausea vomiting and diarrhea Instructions Patient Instructions: DI for Viral Gastroenteritis -- Adult Print Language Print Language: Peruvian Discharge ED Provider: Beka Santos General Adult HPI General Chief complaint: Abdominal Pain Stated complaint: vomiting, diarrhea, rectal bleeding Time Seen by Provider: 06/17/24 00:10 Mode of Arrival: Ambulatory Source of Information: Patient Description of Symptoms (Recalled from ER Triage Doc. by RN): pt reports nausea, vomiting, diarrhea, and abdominal pain that began a couple days ago. pt reports some bleeding when wiping. History of Present Illness HPI narrative: 63-year-old female with history of diverticulitis presents for nausea vomiting and diarrhea. She reports it has been ongoing for the last 2 to 3 days. She reports mild abdominal pain in the area where she has a hernia. She denies any fever at home. She is still able to drink but has not been eating much because she has been nauseous. She reports some blood when she wipes which is normal for her, no blood mixed with the diarrhea. Related Data Home Medications ?Medication ?Instructions ?Recorded ?Confirmed propranolol 60 mg capsule,24 60 mg PO QHS 06/09/24 06/09/24 hr,extended release propranolol 60 mg capsule,24 60 mg PO DAILY 06/17/24 06/17/24 hr,extended release Previous Rx's ?Medication ?Instructions ?Recorded albuterol sulfate 90 mcg/actuation See Rx Instructions .Route 02/12/24 aerosol inhaler .COMPLEX #18 grams ergocalciferol (vitamin D2) 1,250 See Rx Instructions .Route 02/12/24 mcg (50,000 unit) capsule .COMPLEX #5 caps albuterol sulfate 2.5 mg/3 mL See Rx Instructions .Route 04/14/24 (0.083 %) solution for nebulization .COMPLEX #180 mL methocarbamol 750 mg tablet 1,500 mg (2 x 750 mg) PO TID 5 04/18/24 days #30 tabs furosemide 40 mg tablet 40 mg PO DAILY PRN edema #30 tabs 05/12/24 sumatriptan succinate 100 mg tablet See Rx Instructions .Route 05/12/24 .COMPLEX #9 tabs prednisone 20 mg tablet 20 mg PO BID 5 days #10 tabs 06/07/24 valacyclovir 1 gram tablet 1,000 mg PO BID 14 days #28 tabs 06/07/24 hydroxyzine HCl 25 mg tablet 25 mg PO Q8H PRN itching #30 tabs 06/09/24 ondansetron HCl 4 mg tablet 4 mg PO Q8H PRN nausea and 06/17/24 vomiting 5 days #30 tabs vancomycin 125 mg capsule 125 mg PO Q6H 10 days #40 caps 06/17/24 (Vancocin) Allergies Allergy/AdvReac Type Severity Reaction Status Date / Time hydrocodone (HYDROCODONE) Allergy Unknown Verified 06/09/24 08:59 Penicillins (PENICILLINS) Allergy Unknown Verified 06/09/24 08:59 PFSH PFSH Disclaimer: The information contained in this section may have been updated after the patient was seen, as this information can be updated by other users. Medical History Onychomycosis Normal colonoscopy Vaginitis RLS (restless legs syndrome) Migraines Diverticulitis Abnormal EKG Bilateral arm pain Sinus bradycardia Chest pain Cervical spondylosis Sciatic nerve pain Asthma Hypertension Surgical History No pertinent past surgical history Family History Family/Other No significant family history Social History Smoking Status: Never smoker alcohol intake: never substance use type: denies use current occupational status: unemployed Travel in the last 8 weeks: None household members: spouse housing: house caffeine: Yes Have you lived/traveled outside [place] in past 30 days?: No Contact w/someone who lives/traveled outside [place] past 30 days?: No Exposure to someone with infectious disease in past 14 days?: No Do you have a fever (greater than 100.4 F or 38 C)?: No Have you tested positive for COVID-19: No Exposed to someone with COVID-19 in past 14 days?: No Do you have a sore throat?: No Do you have a cough?: No Do you have any weakness?: No Do you have any diarrhea?: Yes Are you experiencing any unusual bleeding?: Yes Do you have any muscle aches/pain?: No Do you have any abdominal pain?: No Are you experiencing loss of taste or smell?: No Other Medical History Have you received the Flu Vaccine for this season: No Have you received the Pneumonia Vaccine: No ROS Obtained: Yes All systems reviewed & no additional complaints except as documented Physical Exam General General appearance: alert and in no apparent distress Head Head exam: atraumatic and normocephalic Eye Eye exam: Present normal appearance, PERRL and EOMI ENT ENT exam: Present normal oropharynx and normal external ear exam Neck Neck exam: Present normal inspection and full ROM Chest Chest inspection: Present normal inspection and symmetric chest wall rise; Absent tenderness Respiratory Respiratory exam: Present normal lung sounds bilaterally; Absent respiratory distress Cardiovascular Cardiovascular exam: Present regular rate and normal rhythm Abdominal Exam Abdominal exam: Present soft; Absent distention, tenderness or guarding Extremities Exam Extremities exam: Present normal inspection; Absent edema or joint swelling Back Exam Back exam: Present normal inspection; Absent tenderness Neurological Exam Neurological exam: Present alert and oriented X3; Absent motor sensory deficit Psychiatric Psychiatric exam: Present normal affect and normal mood Skin Skin exam: Present warm, dry and normal color Lymphatic Lymphatic Findings: no adenopathy Medical Decision Making Medical Records Medical records reviewed: Yes I reviewed the patient's medical records. Screening: Per USPSTF and CDC recommendations, given the prevalence of disease in our region, it is our hospital?s policy to screen for HIV and viral Hepatitis for all patients aged 18 and over and those with ongoing risk factors. Olu Inquiry Pt receiving controlled substance: No Olu was queried for this patient: No Vital Signs: 06/17/24 00:06 06/17/24 01:01 06/17/24 02:01 Temperature 98.4 F Temperature Source Oral Pulse Rate 89 92 H Pulse Rate [Right] 88 Respiratory Rate 20 Blood Pressure 140/94 H 163/89 H Blood Pressure [Right Arm] 147/98 H Blood Pressure Mean 112 104 Blood Pressure Mean [Right Arm] 114 02 Sat by Pulse Oximetry 95 90 L 95 Oxygen Delivery Method 06/17/24 02:31 06/17/24 05:56 Temperature 97.9 F Temperature Source Pulse Rate 91 H 78 Pulse Rate [Right] Respiratory Rate 20 Blood Pressure 130/72 148/98 H Blood Pressure [Right Arm] Blood Pressure Mean 91 Blood Pressure Mean [Right Arm] 02 Sat by Pulse Oximetry 94 L Oxygen Delivery Method Room Air Lab Data Lab results reviewed: Yes I reviewed the patient's lab results. Lab Results 06/17/24 00:12: WBC 9.4, RBC 4.72, Hgb 14.1, Hct 41.3, MCV 87.5, MCH 29.9, MCHC 34.1, RDW 13.7, Plt Count 181, MPV 9.8, Neut % (Auto) 78.5, Lymph % (Auto) 11.2, [place] % (Auto) 9.9 H, Eos % (Auto) 0.0 L, Baso % (Auto) 0.2, Neut # (Auto) 7.3, Lymph # (Auto) 1.1, [place] # (Auto) 0.9, Eos # (Auto) 0.0, Baso # (Auto) 0.0, S odium 131 L, Potassium 3.3 L, Chloride 97 L, Carbon Dioxide 26, Anion Gap 11.3, BUN 6 L, Creatinine 0.60, Estimated Creat Clear 101, Estimated GFR 101, Est GFR ( Amer) 122, Glucose 138 H, Calcium 8.6, Magnesium 1.8, Total Bilirubin 0.6, AST 31, ALT 27, Alkaline Phosphatase 104, Total Protein 7.8, Albumin 4.7, Globulin 3.1, Albumin/Globulin Ratio 1.5, Lipase 82 06/17/24 07:12: Stl Aeromonas (PCR) Not detected, Stl C. cayetanensis PCR Not detected, Stool Rotavirus (PCR) Not detected, Stl Adenov F 40/41 PCR Not detected, Stool Astrovirus (PCR) Not detected, Stool Campylobacter PCR Not detected, Stl C.difficile Tox PCR Detected A, Stool Cryptosporidium PCR Not detected, Stl E.coli Shiga Tox PCR Not detected, Stool E coli O157 PCR Not detected, Stl Enterotoxigenic E PCR Not detected, Stool EPEC (PCR) Not detected, Stool EAEC (PCR) Not detected, Stl E. histolytica PCR Not detected, Stool Giardia Lamblia PCR Not detected, Stool Salmonella PCR Not detected, Stool Sapovirus (PCR) Not detected, Stl P. shigelloides PCR Not detected, Stl Shigella/EIEC PCR Not detected, St Y.enterocolitica PCR Not detected, Stool Vibrio (PCR) Not detected, Stl Vibrio cholerae PCR Not detected, Stl Norovirus GI/GII PCR Not detected 06/17/24 00:12 06/17/24 00:12 Orders (Tests/Meds): ED MEDICATIONS Discontinued Medications Generic Name Dose Route Start Last Admin Trade Name Freq PRN Reason Stop Dose Admin Acetaminophen 1,000 mg 06/17/24 04:24 06/17/24 04:29 Acetaminophen 500mg Tab PO 06/17/24 04:25 1,000 mg ONCE ONE Administration Ibuprofen 800 mg 06/17/24 04:24 06/17/24 04:29 Ibuprofen 800 Mg Tablet PO 06/17/24 04:25 800 mg ONCE ONE Administration Ondansetron HCl 4 mg 06/17/24 00:24 06/17/24 00:31 Ondansetron 4mg/2ml Vial IV 06/17/24 00:25 4 mg ONCE ONE Administration Potassium Chloride 40 meq 06/17/24 01:29 06/17/24 01:32 Potassium Chloride 20meq Tab PO 06/17/24 01:30 40 meq ONCE ONE Administration ORDERS Category Date Time Status CBC w/Auto Diff [Complete Blood Count Auto Diff] Stat Lab 06/17/24 00:12 Completed CMP [Comprehensive Metabolic Panel] Stat Lab 06/17/24 00:12 Completed Diarrhea 23 Panel, PCR Stat Lab 06/17/24 07:12 Completed Lipase Stat Lab 06/17/24 00:12 Completed Magnesium Stat Lab 06/17/24 00:12 Completed Medical Decision Narrative: 63-year-old female with history of cholecystectomy, diverticulitis, abdominal hernia presents for nausea vomiting and diarrhea for the last few days.. History was obtained via interactive discussion with patient, chart review. On arrival, patient is [afebrile, hemodynamically stable, satting appropriately, alert, oriented x4, GCS 15], moving all extremities spontaneously. Full physical exam performed and significant for no significant abdominal tenderness on exam, no evidence of incarcerated hernia Differential includes but is not limited to gastroenteritis, C. difficile, colitis. Patient was given Zofran for symptomatic management and correction of underlying abnormalities. Workup initiated including CBC CMP mag Phos stool sample. On re-evaluation, patient reports symptomatic improvement. Laboratory workup independently interpreted by me and significant for minimal hyponatremia and hypokalemia which we will replete with 40 p.o. potassium.. No significant electrolyte derangement. No significant leukocytosis. CT imaging of the abdomen and pelvis was considered, but deemed unnecessary due to benign abdominal exam. Given patient history, exam and workup, patient's presentation most likely represents gastroenteritis. Interactive discussion with patient regarding presentation. She was discharged with nausea medication and given instructions regarding return precautions. Patient was discharged prior to stool study results. Procedures Risk/Benefits of Procedure(s) Were Explained: Yes Critical Care Critical Care Time Critical Care Time: No
[2024-06-17 00:46] LABS: Alanine Aminotransferase 27 U/L (12-78); Albumin/Globulin Ratio 1.5 (1.1-1.8); Alkaline Phosphatase 104 U/L (38-126); Anion Gap 11.3 mEq/L (5-15); Aspartate Amino Transferase 31 U/L (14-36); Bilirubin,Total 0.6 mg/dl (0.2-1.3); Blood Urea Nitrogen 6 mg/dl (7-17); Calcium 8.6 mg/dl (8.4-10.2); Carbon Dioxide 26 mmol/L (22.0-30.0); Creatinine Clearance Estimated 101 mL/min (50-200); Estimated Glomerular Filt Rate 101 ml/min (>60); GFR (African American) 122 ML/MIN (>60); Globulin 3.1 g/dL (1.3-3.2); Glucose 138 mg/dl (74-100); Lipase 82 U/L (23-300); Magnesium 1.8 mg/dl (1.6-2.3); Total Protein,Serum 7.8 g/dl (6.3-8.2)
[2024-06-17 01:01] VITALS: BP 140/94; PULSE 89; O2SAT 90
[2024-06-17] MEDS: POTASSIUM CHLORIDE 20MEQ TAB 40 MEQ PO (01:32)
[2024-06-17 02:01] VITALS: BP 163/89; PULSE 92; O2SAT 95
[2024-06-17 02:31] VITALS: BP 130/72; PULSE 91; O2SAT 94
[2024-06-17] MEDS: ACETAMINOPHEN 500MG TAB 1000 MG PO (04:29)
[2024-06-17] MEDS: IBUPROFEN 800 MG TABLET PO (04:29)
[2024-06-17 05:56] VITALS: BP 148/98; PULSE 78; RESP 20; TEMP 36.6; O2SAT 98
[2024-06-17 07:19] LABS: Adenovirus F 40/41, stool Not Detected (NotDetected); Astrovirus Not Detected (NotDetected); Campylobacter Not Detected (NotDetected); Cryptosporidium Not Detected (NotDetected); Cyclospora Cayetanesis Not Detected (NotDetected); Entamoeba histolytica Not Detected (NotDetected); Enteroaggregative E coli Not Detected (NotDetected); Enteropathogenic E coli Not Detected (NotDetected); Enterotoxigenic E coli Not Detected (NotDetected); Giardia lamblia Not Detected (NotDetected); Norovirus Not Detected (NotDetected); Plesimonas Shigalloides, PCR Not Detected (NotDetected); Rotavirus A Not Detected (NotDetected); Salmonella, PCR Not Detected (NotDetected); Sapovirus Not Detected (NotDetected); Shiga-like toxin E coli Not Detected (NotDetected); Shigella Enterovasive E coli Not Detected (NotDetected); Vibrio Cholerae Not Detected (NotDetected); Vibrio, PCR Not Detected (NotDetected); Yersinia Entercolitica, PCR Not Detected (NotDetected)
[2024-06-17 10:33] LABS: Clostridium Difficile A/B, PCR Detected (NotDetected)
--- NOTE | 2024-06-17 13:36 | PC.NURSE ---
+ stool for c. diff. dr vázquez notified, vale called into [facility] called and [facility], care management notified and will fill out paperwork
== END 2024-06-17 07:15 | disposition home or self-care (01) ==
PROVIDERS: Emergency Provider Emergency Medicine; PCP Family Medicine
DX: R11.2 Nausea with vomiting, unspecified (principal); R19.7 Diarrhea, unspecified; R10.9 Unspecified abdominal pain; K62.5 Hemorrhage of anus and rectum
CPT/HCPCS: 80053; 83690; 83735; 85025; 87507; 96374; 99283; J2405

== ENCOUNTER 2024-06-22 12:30 | Emergency (ER) | payer MEDICAID, SELFPAY ==
[2024-06-22 12:35] VITALS: BP 146/68; PULSE 77; RESP 20; TEMP 37.3; O2SAT 93; BMI 40.7
--- NOTE | 2024-06-22 12:47 | PC.NURSE ---
Patient refused a Covid-19 and Flu PCR. Stated, You're not putting that thing up my nose. Blood obtained via a straight-stick in triage.
[2024-06-22 13:02] LABS: Basophils % 0.1 % (0.1-2.0); Hematocrit 37.5 % (37.0-47.0); Hemoglobin 12.3 g/dL (12.2-16.2); Lymphocytes # 1.6 K/mm3 (0.7-4.5); Lymphocytes % 23.1 % (10-50); Mean Corpuscular HGB Conc 32.8 g/dL (31.8-35.4); Mean Corpuscular Hemoglobin 29.1 pg (27.0-31.2); Mean Corpuscular Volume 88.7 fl (81-99); Mean Platelet Volume 9.7 fl (7.4-10.4); Monocytes # 0.4 K/mm3 (0.1-1.0); Monocytes % 5.4 % (1.7-9.3); Neutrophils # 4.8 K/mm3 (1.8-7.8); Neutrophils % 71.1 % (37.0-80.0); Platelet Count 181 K/mm3 (142-424); Red Blood Count 4.23 M/mm3 (4.20-5.40); Red Cell Distribution Width 13.8 % (11.5-17.5); White Blood Count 6.8 K/mm3 (4.8-10.8)
[2024-06-22 13:18] LABS: Albumin Level 4.2 g/dl (3.5-5.0); Chloride 101 mmol/L (98-107); Sodium 138 mmol/L (136-145)
[2024-06-22 13:19] LABS: Potassium 3.4 mmoL/L (3.5-5.1)
[2024-06-22 13:21] LABS: Alanine Aminotransferase 32 U/L (12-78); Albumin/Globulin Ratio 1.3 (1.1-1.8); Alkaline Phosphatase 88 U/L (38-126); Anion Gap 7.4 mEq/L (5-15); Aspartate Amino Transferase 48 U/L (14-36); Bilirubin,Total 0.5 mg/dl (0.2-1.3); Blood Urea Nitrogen 5 mg/dl (7-17); Calcium 8.6 mg/dl (8.4-10.2); Carbon Dioxide 33 mmol/L (22.0-30.0); Creatinine Clearance Estimated 107 mL/min (50-200); Estimated Glomerular Filt Rate 125 ml/min (>60); GFR (African American) 151 ML/MIN (>60); Globulin 3.2 g/dL (1.3-3.2); Glucose 106 mg/dl (74-100); Lipase 69 U/L (23-300); Total Protein,Serum 7.4 g/dl (6.3-8.2)
[2024-06-22 13:30] LABS: Activated Partial Thrombo Time 26.7 seconds (22.8-30.6); INR 0.91 (0.9-1.1); Prothrombin Time 10.3 seconds (10.1-12.5)
[2024-06-22 13:57] LABS: Microscopic, Urine URINE MICROSCOPIC (MICROSCOPIC)
--- NOTE | 2024-06-22 14:15 | XR_ITS ---
PROCEDURE INFORMATION: Exam: XR Chest Exam date and time: 06/22/2024 2:12 PM Age: 63 years old Clinical indication: Cough and shortness of breath; Additional info: Cough, SOA TECHNIQUE: Imaging protocol: Radiologic exam of the chest. Views: 2 views. COMPARISON: CT ANGIO CHEST PE PROTOCOL 11/04/2020 9:53 PM FINDINGS: Lungs: Prominent interstitial lung markings. Pleural spaces: Unremarkable. No pleural effusion. No pneumothorax. Heart/Mediastinum: Unremarkable. No cardiomegaly. Bones/joints: Degenerative changes of the visualized osseous structures. IMPRESSION: Perhaps some mild degree of pulmonary edema/CHF. Correlate clinically. No focal consolidation.
--- NOTE | 2024-06-22 14:15 | PC.NURSE ---
dr huber at bedside
--- NOTE | 2024-06-22 14:29 | ED_ITS ---
Discharge Plan Disposition Patient Disposition: Home, Self-Care Condition: Good Prescriptions Prescriptions: New ondansetron 4 mg tablet,disintegrating 4 mg PO Q8H PRN (Reason: nausea and vomiting) 4 Days Qty: 12 0RF [id number]-fxhljjevv-[id number] [Bromfed DM] 2-30-10 mg/5 mL syrup 5 ml PO Q6H PRN (Reason: cold symptoms) Qty: 118 0RF prednisone 20 mg tablet 40 mg PO DAILY 3 Days Qty: 6 0RF Rx Instructions: Start 06/23/24 hydrocortisone acetate [Anusol-HC] 25 mg suppository 25 mg AK HS PRN (Reason: hemorrhoids) Qty: 24 0RF vancomycin 50 mg/mL recon soln 125 mg PO QID 14 Days Qty: 140 0RF cefdinir 300 mg capsule 300 mg PO BID 5 Days Qty: 10 0RF No Action ergocalciferol (vitamin D2) 1,250 mcg (50,000 unit) capsule See Rx Instructions .ROUTE .COMPLEX Qty: 5 3RF Dose Instruction: TAKE ONE CAPSULE BY MOUTH EVERY WEEK Rx Instructions: TAKE ONE CAPSULE BY MOUTH EVERY WEEK albuterol sulfate 90 mcg/actuation HFA aerosol inhaler See Rx Instructions .ROUTE .COMPLEX Qty: 18 10RF Dose Instruction: INHALE 1 PUFF BY MOUTH EVERY 4 TO 6 HOURS NEEDED FOR SHORTNESS OF BREATH OR WHEEZING Rx Instructions: INHALE 1 PUFF BY MOUTH EVERY 4 TO 6 HOURS NEEDED FOR SHORTNESS OF BREATH OR WHEEZING propranolol 60 mg capsule,extended release 24 hr 60 mg PO QHS hydroxyzine HCl 25 mg tablet 25 mg PO Q8H PRN (Reason: itching) Qty: 30 0RF albuterol sulfate 2.5 mg /3 mL (0.083 %) solution for nebulization See Rx Instructions .ROUTE .COMPLEX Qty: 180 0RF Dose Instruction: INHALE CONTENTS OF 1 VIAL VIA NEBULIZER UP TO FOUR TIMES A DAY NEEDED FOR SHORTNESS OF AIR Rx Instructions: INHALE CONTENTS OF 1 VIAL VIA NEBULIZER UP TO FOUR TIMES A DAY NEEDED FOR SHORTNESS OF AIR furosemide 40 mg tablet 40 mg PO DAILY PRN (Reason: edema) Qty: 30 2RF sumatriptan succinate 100 mg tablet See Rx Instructions .ROUTE .COMPLEX Qty: 9 0RF Dose Instruction: TAKE 1 TABLET BY MOUTH AT ONSET OF MIGRAINE, THEN MAY REPEAT 1 TIME IN 2 HOURS IF NO RELIEF. MAX OF 2 IN 24 HOURS. Rx Instructions: TAKE 1 TABLET BY MOUTH AT ONSET OF MIGRAINE, THEN MAY REPEAT 1 TIME IN 2 HOURS IF NO RELIEF. MAX OF 2 IN 24 HOURS. benzonatate 100 mg capsule 100 mg PO TID PRN (Reason: cough) Qty: 30 0RF methocarbamol 750 mg tablet 1,500 mg PO TID 5 Days Qty: 30 0RF propranolol 60 mg capsule,extended release 24 hr 60 mg PO DAILY ondansetron HCl 4 mg tablet 4 mg PO Q8H PRN (Reason: nausea and vomiting) 5 Days Qty: 30 0RF vancomycin [Vancocin] 125 mg capsule 125 mg PO Q6H 10 Days Qty: 40 0RF valacyclovir 1 gram tablet 1,000 mg PO BID 14 Days Qty: 28 0RF prednisone 20 mg tablet 20 mg PO BID 5 Days Qty: 10 0RF Referrals Follow up/Referrals: Ryan Hebert MD [Primary Care Provider] - See instructions Activity Restrictions/Add. Instructions Additional Instructions/Restrictions: You were evaluated in the emergency department today. You tested positive for the flu, which I feel is the cause of your symptoms. Please take Tylenol and ibuprofen at home as needed for pain/fever. Make sure you stay hydrated. 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 supervisor [employer] the suppositories and use as needed for hemorrhoids and bleeding. Use the Bromfed as needed for cough/URI symptoms. Take the prednisone daily as prescribed. Use your albuterol inhaler at home as needed for wheezing/shortness of breath. Expect that cough may linger for 6-8 weeks. You were again prescribed an antibiotic to take for your C. difficile since you said that you were not taking the treatment at home. Please pick this up and take the full course. I am also prescribing an antibiotic for UTI. Return to the emergency department for new or worsening symptoms. Follow-up with your primary care provider over the next 48 hours. Clinical Impressions Clinical Impression: Cough, Nausea, Hemorrhoid, Influenza A, C. difficile diarrhea Stand Alone Forms Stand Alone Forms: Work/School Release Instructions Patient Instructions: DI for Asthma -- Adult, DI for Hemorrhoids, DI for Influenza -- Adult Print Language Print Language: Arabic Discharge ED Provider: Lacey Christensen General Adult HPI General Chief complaint: GI Bleed Stated complaint: rectal bleeding dizziness/lightheaded diarrhea Time Seen by Provider: 06/22/24 14:01 Mode of Arrival: Ambulatory Source of Information: Patient Description of Symptoms (Recalled from ER Triage Doc. by RN): Patient presents to triage via wheelchair. Patient states she was dropped off at the ED. Cough noted in triage. States she has been coughing x5 days. States she was seen in the ED last week for this. States now she has diarrhea and rectal bleeding. States it is bright red blood. Endorses a history of hemorrhoids. Also endorses a history of a hernia and states when she coughs, she gets pressure on her hernia. History of Present Illness HPI narrative: This patient is a 63-year-old female with a history of morbid obesity, abdominal hernia, hemorrhoids, hypertension, asthma, Crohn's disease presenting to the emergency department for evaluation with concern for cough, nausea, bright red blood per rectum. Cough has been going on for about 5 days. She notes that because of the cough, her hernia is more painful than normal, but she still having good bowel function. She has nausea but no vomiting. She is having loose stools that are normal colored/brown with small amounts of BRBPR with the brown stool. She does note a hemorrhoid she has to push back in. No significant abdominal pain. No fevers, shortness of breath, other concerns. Her biggest concern today is her cough, which she states is very irritating and Tessalon Perles are not helping. Related Data Home Medications ?Medication ?Instructions ?Recorded ?Confirmed propranolol 60 mg capsule,24 60 mg PO QHS 06/09/24 06/09/24 hr,extended release propranolol 60 mg capsule,24 60 mg PO DAILY 06/17/24 06/17/24 hr,extended release Previous Rx's ?Medication ?Instructions ?Recorded albuterol sulfate 90 mcg/actuation See Rx Instructions .Route 02/12/24 aerosol inhaler .COMPLEX #18 grams ergocalciferol (vitamin D2) 1,250 See Rx Instructions .Route 02/12/24 mcg (50,000 unit) capsule .COMPLEX #5 caps albuterol sulfate 2.5 mg/3 mL See Rx Instructions .Route 04/14/24 (0.083 %) solution for nebulization .COMPLEX #180 mL methocarbamol 750 mg tablet 1,500 mg (2 x 750 mg) PO TID 5 04/18/24 days #30 tabs furosemide 40 mg tablet 40 mg PO DAILY PRN edema #30 tabs 05/12/24 sumatriptan succinate 100 mg tablet See Rx Instructions .Route 05/12/24 .COMPLEX #9 tabs prednisone 20 mg tablet 20 mg PO BID 5 days #10 tabs 06/07/24 valacyclovir 1 gram tablet 1,000 mg PO BID 14 days #28 tabs 06/07/24 hydroxyzine HCl 25 mg tablet 25 mg PO Q8H PRN itching #30 tabs 06/09/24 ondansetron HCl 4 mg tablet 4 mg PO Q8H PRN nausea and 06/17/24 vomiting 5 days #30 tabs vancomycin 125 mg capsule 125 mg PO Q6H 10 days #40 caps 06/17/24 (Vancocin) benzonatate 100 mg capsule 100 mg PO TID PRN cough #30 caps 06/20/24 zxltbtdborpqhkk-qvegfryrcfnzmgg-ZI 5 ml PO Q6H PRN cold symptoms #118 06/22/24 2 mg-30 mg-10 mg/5 mL oral syrup mL (Bromfed DM) cefdinir 300 mg capsule 300 mg PO BID 5 days #10 caps 06/22/24 hydrocortisone acetate 25 mg 25 mg AK HS PRN hemorrhoids #24 ea 06/22/24 rectal suppository (Anusol-HC) ondansetron 4 mg disintegrating 4 mg PO Q8H PRN nausea and 06/22/24 tablet vomiting 4 days #12 tabs prednisone 20 mg tablet 40 mg (2 x 20 mg) PO DAILY 3 days 06/22/24 #6 tabs vancomycin 50 mg/mL oral solution 125 mg (2.5 mL) PO QID 14 days 06/22/24 #140 mL Allergies Allergy/AdvReac Type Severity Reaction Status Date / Time hydrocodone (HYDROCODONE) Allergy Unknown Verified 06/09/24 08:59 Penicillins (PENICILLINS) Allergy Unknown Verified 06/09/24 08:59 [facility] Disclaimer: The information contained in this section may have been updated after the patient was seen, as this information can be updated by other users. Medical History Onychomycosis Normal colonoscopy Vaginitis RLS (restless legs syndrome) Migraines Diverticulitis Abnormal EKG Bilateral arm pain Sinus bradycardia Chest pain Cervical spondylosis Sciatic nerve pain Asthma Hypertension Surgical History No pertinent past surgical history Family History Family/Other No significant family history Social History Smoking Status: Never smoker alcohol intake: never substance use type: denies use current occupational status: unemployed Travel in the last 8 weeks: None household members: spouse housing: house caffeine: Yes Have you lived/traveled outside [place] in past 30 days?: No Contact w/someone who lives/traveled outside [place] past 30 days?: No Exposure to someone with infectious disease in past 14 days?: No Do you have a fever (greater than 100.4 F or 38 C)?: No Have you tested positive for COVID-19: No Exposed to someone with COVID-19 in past 14 days?: No Do you have a sore throat?: No Do you have a cough?: No Do you have any weakness?: No Do you have any diarrhea?: No Are you experiencing any unusual bleeding?: No Do you have any muscle aches/pain?: No Do you have any abdominal pain?: No Are you experiencing loss of taste or smell?: No Other Medical History Have you received the Flu Vaccine for this season: No Have you received the Pneumonia Vaccine: No ROS Obtained: Yes All systems reviewed & no additional complaints except as documented Physical Exam General General appearance: alert and in no apparent distress Head Head exam: atraumatic and normocephalic Eye Eye exam: Present normal appearance, PERRL and EOMI ENT ENT exam: Present normal exam, normal oropharynx, mucous membranes moist and normal external ear exam Neck Neck exam: Present normal inspection, full ROM and trachea midline; Absent tenderness Chest Chest inspection: Present normal inspection and symmetric chest wall rise; Absent tenderness Respiratory Respiratory exam: Present wheezes (Wheezes heard bilaterally) and other (No increased work of breathing); Absent respiratory distress, stridor or accessory muscle use Cardiovascular Cardiovascular exam: Present regular rate and normal rhythm Abdominal Exam Abdominal exam: Present soft; Absent distention, tenderness or guarding Extremities Exam Extremities exam: Present normal inspection, full ROM and normal capillary refill; Absent tenderness or edema Back Exam Back exam: Present normal inspection and full ROM; Absent tenderness Neurological Exam Neurological exam: Present alert, oriented X3, CN II-XII intact and normal gait; Absent motor sensory deficit Psychiatric Psychiatric exam: Present normal affect and normal mood Skin Skin exam: Present warm and dry Medical Decision Making Medical Records Medical records reviewed: Yes I reviewed the patient's medical records. Screening: Per USPSTF and CDC recommendations, given the prevalence of disease in our region, it is our hospital?s policy to screen for HIV and viral Hepatitis for all patients aged 18 and over and those with ongoing risk factors. Olu Inquiry Pt receiving controlled substance: No Vital Signs: 06/22/24 12:35 06/22/24 15:58 Temperature 99.2 F 98.2 F Temperature Source Oral Pulse Rate 70 Pulse Rate [Radial] 77 Respiratory Rate 20 20 Blood Pressure 140/70 Blood Pressure [R Arm] 146/68 H Blood Pressure Mean [R Arm] 94 Blood Pressure Source [R Arm] Automatic Cuff 02 Sat by Pulse Oximetry 93 L Oxygen Delivery Method Room Air Room Air Lab Data Lab results reviewed: Yes I reviewed the patient's lab results. Lab Results 06/22/24 12:46: WBC 6.8, RBC 4.23, Hgb 12.3, Hct 37.5, MCV 88.7, MCH 29.1, MCHC 32.8, RDW 13.8, Plt Count 181, MPV 9.7, Neut % (Auto) 71.1, Lymph % (Auto) 23.1, [place] % (Auto) 5.4, Eos % (Auto) 0.0 L, Baso % (Auto) 0.1, Neut # (Auto) 4.8, Lymph # (Auto) 1.6, [place] # (Auto) 0.4, Eos # (Auto) 0.0, Baso # (Auto) 0.0, PT 10.3, INR 0.91, APTT 26.7, Sodium 138, Potassium 3.4 L, Chloride 101, Carbon Dioxide 33 H, Anion Gap 7.4, BUN 5 L, Creatinine 0.50 L, Estimated Creat Clear 107, Estimated GFR 125, Est GFR ( Amer) 151, Glucose 106 H, Calcium 8.6, Total Bilirubin 0.5, AST 48 H, ALT 32, Alkaline Phosphatase 88, Total Protein 7.4, Albumin 4.2, Globulin 3.2, Albumin/Globulin Ratio 1.3, Lipase 69 06/22/24 13:50: Urine Color Yellow, Urine Appearance Clear, Urine pH 7.0, Ur Specific Liberal 1.010, Urine Protein Negative, Urine Glucose (UA) Negative, Urine Ketones Trace, Urine Blood Negative, Urine Nitrate Negative, Urine Bilirubin Negative, Urine Urobilinogen 0.2, Ur Leukocyte Esterase Trace A, Urine RBC None, Urine WBC 20-50, Ur Squamous Epith Cells None, Urine Bacteria Trace 06/22/24 14:35: SARS-CoV-2 (PCR) Not detected, Influenza A Untype (PCR) Detected A, Influenza Type B (PCR) Not detected 06/22/24 12:46 06/22/24 12:46 Orders (Tests/Meds): ED MEDICATIONS Discontinued Medications Generic Name Dose Route Start Last Admin Trade Name Freq PRN Reason Stop Dose Admin Albuterol/Ipratropium 6 ml 06/22/24 14:15 06/22/24 14:32 Ipratropium/Albuterol 3 Ml Neb IH 06/22/24 14:16 6 ml ONCE ONE Administration Belladonna Alkaloids 60 ml 06/22/24 15:33 06/22/24 15:44 Belladonna Alkaloids 60 Ml Ml PO 06/22/24 15:34 60 ml ONCE ONE Administration Ketorolac Tromethamine 15 mg 06/22/24 15:33 06/22/24 15:44 Ketorolac 30mg/Ml Vial IV 06/22/24 15:34 15 mg ONCE ONE Administration Ondansetron HCl 4 mg 06/22/24 14:15 06/22/24 14:32 Ondansetron 4mg/2ml Vial IV 06/22/24 14:16 4 mg ONCE ONE Administration Potassium Chloride 40 meq 06/22/24 14:19 06/22/24 14:32 Potassium Chloride 20meq Tab PO 06/22/24 14:20 40 meq ONCE ONE Administration Prednisone 40 mg 06/22/24 15:16 06/22/24 15:24 Prednisone 20mg Tab PO 06/22/24 15:17 40 mg ONCE ONE Administration ORDERS Category Date Time Status CXR 2 view (NOT portable) [XR chest 2V] Stat Exams 06/22/24 14:15 Completed Activated Partial Thrombo Time Stat Lab 06/22/24 12:46 Completed Complete Blood Count Auto Diff Stat Lab 06/22/24 12:46 Completed Comprehensive Metabolic Panel Stat Lab 06/22/24 12:46 Completed Lipase Stat Lab 06/22/24 12:46 Completed Prothrombin Time INR Stat Lab 06/22/24 12:46 Completed Rapid PCR Covid and Flu A/B Stat Lab 06/22/24 14:35 Completed Urinalysis and Microscopic Stat Lab 06/22/24 13:50 Completed Urine Culture Stat Micro 06/22/24 13:50 Received ECG Data Tracing #1: I reviewed this ECG and interpreted as documented below: Sinus rhythm with a ventricular to [address] changes concerning for STEMI. Normal intervals ECG initial impression date: 06/22/24 ECG initial impression time: 15:41 Medical Decision Narrative: In summary, this patient is a 63-year-old female presenting to the Emergency Department for evaluation of cough, nausea, loose stools, bright red blood per rectum. Differential diagnoses considered include but are not limited to pneumonia, viral syndrome, gastroenteritis, dehydration, ROME, hemorrhoidal bleed, lower GI bleed, Crohn's flare, asthma exacerbation. Ruling out the most morbid conditions drove assessment. It should be noted patient's history includes asthma, obesity, Crohn's disease, hemorrhoids, hypertension which may or may not be at goal therapy. This complicates all aspects of care by increasing patient's risk for morbidity. I reviewed patient's past medical records and noted evaluation here 06/17/2024 for diarrhea at which point she was diagnosed with C. difficile. She was prescribed oral vancomycin. She notes that she was not aware that she was prescribed anything so she never picked it up and took it. On exam, the patient is sitting upright in no acute distress with completely benign abdominal exam. Cardiopulmonary exam demonstrates wheezing but otherwise is reassuring. No increased work of breathing. Vitals are reassuring on cardiac telemetry. Workup included CBC, CMP lipase, coags, urinalysis, chest x- ray. Patient is given a bolus of IV fluids as well as IV Zofran for symptomatic improvement. She is also given DuoNebs given wheezing. I independently interpreted chest x-ray prior to the radiologist read and noted no large focal consolidation concerning for pneumonia.. Please see their read for final interpretation. Labs were obtained that demonstrated positive influenza. CBC is reassuring with no significant leukocytosis or anemia, coags reassuring, potassium slightly low so oral replacement was ordered. She has no significant anemia, BUN is not elevated. Given this, I feel she is unlikely to have a GI bleed that is clinically significant. I feel she likely has hemorrhoidal bleeding based on the clinical picture. Urinalysis is positive for leukocyte Estrace, 20-50 white blood cells, and bacteria. It is unfortunate that she has urinary tract infection in the setting of also having C. difficile, but will prescribe antibiotics to treat this. I also prescribed oral vancomycin again given that she states that she never paid the other prescription. EKG was obtained is reassuring. On reassessment, patient had good improvement after administration of nebs. She no longer has wheezing or adventitious lung sounds. Given this, I feel she is appropriate for treatment with steroids and continued use of inhaler at home for asthma exacerbation in the setting of influenza. She was given first dose of prednisone here. At this time, feel she is appropriate for discharge home. She is given prescription for antibiotic for UTI, prescription for oral vancomycin for C. difficile, prescription for prednisone for asthma exacerbation, and Bromfed at her request for her cough. I also did prescribe Zofran for her nausea. Patient was given instructions for close outpatient follow-up and strict return precautions. Critical Care Critical Care Time Critical Care Time: No
[2024-06-22] MEDS: IPRATROPIUM/ALBUTEROL 3 ML NEB 6 ML IH (14:32)
[2024-06-22] MEDS: ONDANSETRON 4MG/2ML VIAL 4 MG IV (14:32)
[2024-06-22] MEDS: POTASSIUM CHLORIDE 20MEQ TAB 40 MEQ PO (14:32)
[2024-06-22 14:34] LABS: Appearance,Urine Clear (Clear); Blood, Urine Negative (Negative); Color,Urine Yellow (Yellow); Glucose,Urine (UA) Negative (Negative); Ketones,Urine Trace (Negative); Protein,Urine Negative (Negative)
[2024-06-22 14:35] LABS: Bilirubin,Urine Negative (Negative); Leukocyte Esterase,Urine Trace (Negative); Nitrate,Urine Negative (Negative)
[2024-06-22 14:42] LABS: Bacteria,Urine Trace /lpf; Urobilinogen,Urine 0.2 EU/dl (0.2); WBC,Urine 20-50 #/hpf (0-3)
[2024-06-22 14:43] LABS: Coronavirus 19, PCR Not Detected (NotDetected); Influenza B, PCR Not Detected (NotDetected)
[2024-06-22 15:13] LABS: Influenza A, PCR Detected (NotDetected)
[2024-06-22] MEDS: predniSONE 20MG TAB 40 MG PO (15:24)
--- NOTE | 2024-06-22 15:38 | ECG_ITS ---
APPROVED REPORT Exam: Resting ECG HR:78 bpm ECG Measurements Heart Rate 78 AXES LA 138 P 67 QRSd 104 QRS 75 QT 394 T 80 QTc 427 Conclusion SINUS RHYTHM Some motion artifact No STEMI Electronically signed by : KATHERINE WIN, 06/23/2024 23:46:51
[2024-06-22] MEDS: KETOROLAC 30MG/ML VIAL 15 MG IV (15:44)
[2024-06-22] MEDS: BELLADONNA ALKALOIDS 60 ML ML PO (15:44)
[2024-06-22 15:58] VITALS: BP 140/70; PULSE 70; RESP 20; TEMP 36.8; O2SAT 98
--- NOTE | 2024-06-23 11:56 | PC.NURSE ---
urine culture discussed with , no new orders
== END 2024-06-22 16:07 | disposition home or self-care (01) ==
PROVIDERS: Emergency Provider Emergency Medicine; PCP Family Medicine
DX: J10.1 Influenza due to other identified influenza virus with other respiratory manifestations (principal); A04.72 Enterocolitis due to Clostridium difficile, not specified as recurrent; K64.9 Unspecified hemorrhoids; K62.5 Hemorrhage of anus and rectum; R05.9 Cough, unspecified; R11.0 Nausea; R19.7 Diarrhea, unspecified
CPT/HCPCS: 71046; 80053; 81001; 83690; 85025; 85610; 85730; 87086; 87088; 87186; 87636; 93005; 96374; 96375; 99284; J1885; J2405; J7620

== ENCOUNTER 2024-06-27 14:55 | Emergency (ER) | payer MEDICAID, SELFPAY ==
[2024-06-27 15:00] VITALS: BP 147/71; PULSE 70; RESP 18; TEMP 36.2; O2SAT 97; BMI 40.7
--- NOTE | 2024-06-27 15:03 | ECG_ITS ---
APPROVED REPORT Exam: Resting ECG HR:73 bpm ECG Measurements Heart Rate 73 AXES W[place] 147 P 57 QRSd 110 QRS 32 QT 383 T 45 QTc 409 Conclusion Sinus rhythm Incomplete right bundle branch block Nonspecific ST changes Electronically signed by : FLORENCIO STOKES, 06/27/2024 21:06:47
--- NOTE | 2024-06-27 15:15 | PC.NURSE ---
patient refusing to wear vital monitoring
--- NOTE | 2024-06-27 15:20 | XR_ITS ---
FINAL REPORT CLINICAL HISTORY: cp and soa with pain down left arm FINDINGS: A single view of the chest was obtained. The heart is normal in size. The mediastinum is unremarkable. The lungs are underinflated. There are mild chronic changes in the lung bases. There is no pleural effusion. There is no pneumothorax. There is no acute osseous abnormality. IMPRESSION: Underinflation and mild chronic changes. Reviewed, Interpreted and Dictated by Kurtis Ruby MD Transcribed by Geri Torres Authenticated and [facility]
--- NOTE | 2024-06-27 15:31 | HMH.EDGENADL ---
Discharge Plan Disposition Patient Disposition: Home, Self-Care Condition: Good Prescriptions Prescriptions: New methocarbamol 500 mg tablet 500 mg PO HS Qty: 30 0RF methocarbamol 500 mg tablet 500 mg PO HS Qty: 30 0RF No Action ergocalciferol (vitamin D2) 1,250 mcg (50,000 unit) capsule See Rx Instructions .ROUTE .COMPLEX Qty: 5 3RF Dose Instruction: TAKE ONE CAPSULE BY MOUTH EVERY WEEK Rx Instructions: TAKE ONE CAPSULE BY MOUTH EVERY WEEK albuterol sulfate 90 mcg/actuation HFA aerosol inhaler See Rx Instructions .ROUTE .COMPLEX Qty: 18 10RF Dose Instruction: INHALE 1 PUFF BY MOUTH EVERY 4 TO 6 HOURS NEEDED FOR SHORTNESS OF BREATH OR WHEEZING Rx Instructions: INHALE 1 PUFF BY MOUTH EVERY 4 TO 6 HOURS NEEDED FOR SHORTNESS OF BREATH OR WHEEZING propranolol 60 mg capsule,extended release 24 hr 60 mg PO QHS hydroxyzine HCl 25 mg tablet 25 mg PO Q8H PRN (Reason: itching) Qty: 30 0RF albuterol sulfate 2.5 mg /3 mL (0.083 %) solution for nebulization See Rx Instructions .ROUTE .COMPLEX Qty: 180 0RF Dose Instruction: INHALE CONTENTS OF 1 VIAL VIA NEBULIZER UP TO FOUR TIMES A DAY NEEDED FOR SHORTNESS OF AIR Rx Instructions: INHALE CONTENTS OF 1 VIAL VIA NEBULIZER UP TO FOUR TIMES A DAY NEEDED FOR SHORTNESS OF AIR furosemide 40 mg tablet 40 mg PO DAILY PRN (Reason: edema) Qty: 30 2RF sumatriptan succinate 100 mg tablet See Rx Instructions .ROUTE .COMPLEX Qty: 9 0RF Dose Instruction: TAKE 1 TABLET BY MOUTH AT ONSET OF MIGRAINE, THEN MAY REPEAT 1 TIME IN 2 HOURS IF NO RELIEF. MAX OF 2 IN 24 HOURS. Rx Instructions: TAKE 1 TABLET BY MOUTH AT ONSET OF MIGRAINE, THEN MAY REPEAT 1 TIME IN 2 HOURS IF NO RELIEF. MAX OF 2 IN 24 HOURS. benzonatate 100 mg capsule 100 mg PO TID PRN (Reason: cough) Qty: 30 0RF zfjxzrhhoisxqgc-[id number]-BG [Bromfed DM] 2-30-10 mg/5 mL syrup 5 ml PO Q6H PRN (Reason: cold symptoms) Qty: 118 0RF methocarbamol 750 mg tablet 1,500 mg PO TID 5 Days Qty: 30 0RF propranolol 60 mg capsule,extended release 24 hr 60 mg PO DAILY ondansetron HCl 4 mg tablet 4 mg PO Q8H PRN (Reason: nausea and vomiting) 5 Days Qty: 30 0RF vancomycin [Vancocin] 125 mg capsule 125 mg PO Q6H 10 Days Qty: 40 0RF ondansetron 4 mg tablet,disintegrating 4 mg PO Q8H PRN (Reason: nausea and vomiting) 4 Days Qty: 12 0RF prednisone 20 mg tablet 40 mg PO DAILY 3 Days Qty: 6 0RF Rx Instructions: Start 06/23/24 hydrocortisone acetate [Anusol-HC] 25 mg suppository 25 mg AL HS PRN (Reason: hemorrhoids) Qty: 24 0RF vancomycin 50 mg/mL recon soln 125 mg PO QID 14 Days Qty: 140 0RF cefdinir 300 mg capsule 300 mg PO BID 5 Days Qty: 10 0RF valacyclovir 1 gram tablet 1,000 mg PO BID 14 Days Qty: 28 0RF prednisone 20 mg tablet 20 mg PO BID 5 Days Qty: 10 0RF Activity Restrictions/Add. Instructions Additional Instructions/Restrictions: Call your family doctor to establish care for this visit to the emergency department and schedule follow-up within 48 hours to ensure improvement. If you have any worsening of your condition or any other concerning signs or symptoms, return to the emergency department or your primary care doctor for further evaluation. Follow-up with cardiology regarding this visit to the emergency department as needed. Clinical Impressions Clinical Impression: Chest pain Print Language Print Language: Citizen Of [place] Discharge ED Provider: Feliciano Wilson General Adult HPI <Mona Dangelo APRN - Last Filed: 06/27/24 17:48> General Chief complaint: Chest Pain Stated complaint: Chest Pain Time Seen by Provider: 06/27/24 15:05 Mode of Arrival: Ambulatory Source of Information: Patient Description of Symptoms (Recalled from ER Triage Doc. by RN): Pt presents with c/o chest pain that started gradually this AM. Pt states pain is an 8/10 and tight in nature. Pt states she has pain to her left shoulder and left should blade History of Present Illness HPI narrative: patient is a 63-year-old female PMHx obesity, migraines, hypertension, asthma, sciatica, Crohn's who presents to the ED with complaints of chest pain. Patient describes the pain is located on the lateral left aspect of her chest over her rib area. Patient states she has had this in the past. States when she moves the pain is worse. Patient has been seen in the ED multiple times for different complaints within the past several months. She denies any change in medications. Related Data Home Medications ?Medication ?Instructions ?Recorded ?Confirmed propranolol 60 mg capsule,24 60 mg PO QHS 06/09/24 06/09/24 hr,extended release propranolol 60 mg capsule,24 60 mg PO DAILY 06/17/24 06/17/24 hr,extended release Previous Rx's ?Medication ?Instructions ?Recorded albuterol sulfate 90 mcg/actuation See Rx Instructions .Route 02/12/24 aerosol inhaler .COMPLEX #18 grams ergocalciferol (vitamin D2) 1,250 See Rx Instructions .Route 02/12/24 mcg (50,000 unit) capsule .COMPLEX #5 caps albuterol sulfate 2.5 mg/3 mL See Rx Instructions .Route 04/14/24 (0.083 %) solution for nebulization .COMPLEX #180 mL methocarbamol 750 mg tablet 1,500 mg (2 x 750 mg) PO TID 5 04/18/24 days #30 tabs furosemide 40 mg tablet 40 mg PO DAILY PRN edema #30 tabs 05/12/24 sumatriptan succinate 100 mg tablet See Rx Instructions .Route 05/12/24 .COMPLEX #9 tabs prednisone 20 mg tablet 20 mg PO BID 5 days #10 tabs 06/07/24 valacyclovir 1 gram tablet 1,000 mg PO BID 14 days #28 tabs 06/07/24 hydroxyzine HCl 25 mg tablet 25 mg PO Q8H PRN itching #30 tabs 06/09/24 ondansetron HCl 4 mg tablet 4 mg PO Q8H PRN nausea and 06/17/24 vomiting 5 days #30 tabs vancomycin 125 mg capsule 125 mg PO Q6H 10 days #40 caps 06/17/24 (Vancocin) benzonatate 100 mg capsule 100 mg PO TID PRN cough #30 caps 06/20/24 cefdinir 300 mg capsule 300 mg PO BID 5 days #10 caps 06/22/24 hydrocortisone acetate 25 mg 25 mg AL HS PRN hemorrhoids #24 ea 06/22/24 rectal suppository (Anusol-HC) ondansetron 4 mg disintegrating 4 mg PO Q8H PRN nausea and 06/22/24 tablet vomiting 4 days #12 tabs prednisone 20 mg tablet 40 mg (2 x 20 mg) PO DAILY 3 days 06/22/24 #6 tabs vancomycin 50 mg/mL oral solution 125 mg (2.5 mL) PO QID 14 days 06/22/24 #140 mL xiaceposcdkippe-lhohtqknuqzxnrh-LH 5 ml PO Q6H PRN cold symptoms #118 06/23/24 2 mg-30 mg-10 mg/5 mL oral syrup mL (Bromfed DM) methocarbamol 500 mg tablet 500 mg PO HS #30 tabs 06/27/24 methocarbamol 500 mg tablet 500 mg PO HS #30 tabs 06/27/24 Allergies Allergy/AdvReac Type Severity Reaction Status Date / Time hydrocodone (HYDROCODONE) Allergy Unknown Verified 06/09/24 08:59 Penicillins (PENICILLINS) Allergy Unknown Verified 06/09/24 08:59 PFS <Mona Dangelo APRN - Last Filed: 06/27/24 17:48> [facility] Disclaimer: The information contained in this section may have been updated after the patient was seen, as this information can be updated by other users. Medical History Onychomycosis Normal colonoscopy Vaginitis RLS (restless legs syndrome) Migraines Diverticulitis Abnormal EKG Bilateral arm pain Sinus bradycardia Chest pain Cervical spondylosis Sciatic nerve pain Asthma Hypertension Surgical History No pertinent past surgical history Family History Family/Other No significant family history Social History Smoking Status: Never smoker alcohol intake: never substance use type: denies use current occupational status: unemployed Travel in the last 8 weeks: None household members: spouse housing: house caffeine: Yes Have you lived/traveled outside [place] in past 30 days?: No Contact w/someone who lives/traveled outside [place] past 30 days?: No Exposure to someone with infectious disease in past 14 days?: No Do you have a fever (greater than 100.4 F or 38 C)?: No Have you tested positive for COVID-19: No Exposed to someone with COVID-19 in past 14 days?: No Do you have a sore throat?: No Do you have a cough?: No Do you have any weakness?: No Do you have any diarrhea?: No Are you experiencing any unusual bleeding?: No Do you have any muscle aches/pain?: No Do you have any abdominal pain?: No Are you experiencing loss of taste or smell?: No Other Medical History Have you received the Flu Vaccine for this season: No Have you received the Pneumonia Vaccine: No <Mona Dangelo APRN - Last Filed: 06/27/24 17:48> ROS Obtained: Yes Systems reviewed as appropriate & no additional complaints except as documented Physical Exam <Mona Dangelo APRN - Last Filed: 06/27/24 17:48> General General appearance: alert and in no apparent distress Head Head exam: atraumatic and normocephalic Eye Eye exam: Present normal appearance and PERRL ENT ENT exam: Present normal exam Neck Neck exam: Present normal inspection Chest Chest inspection: Present normal inspection, symmetric chest wall rise and tenderness (left lateral chest wall tenderness ) Respiratory Respiratory exam: Present normal lung sounds bilaterally Cardiovascular Cardiovascular exam: Present regular rate Abdominal Exam Abdominal exam: Present soft and normal bowel sounds; Absent tenderness Extremities Exam Extremities exam: Present normal inspection and full ROM Back Exam Back exam: Present normal inspection and full ROM Neurological Exam Neurological exam: Present alert and oriented X3 Psychiatric Psychiatric exam: Present normal affect and normal mood Skin Skin exam: Present warm and dry Medical Decision Making <Mona Dangelo APRN - Last Filed: 06/27/24 17:48> Medical Records Screening: Per USPSTF and CDC recommendations, given the prevalence of disease in our region, it is our hospital?s policy to screen for HIV and viral Hepatitis for all patients aged 18 and over and those with ongoing risk factors. Olu Inquiry Pt receiving controlled substance: No Olu was queried for this patient: No Vital Signs: 06/27/24 15:00 06/27/24 17:24 Temperature 97.2 F L 97.9 F Temperature Source Temporal Artery Scan Pulse Rate 75 Pulse Rate [Right] 70 Respiratory Rate 18 18 Blood Pressure 132/74 Blood Pressure [Right Arm] 147/71 H Blood Pressure Mean [Right Arm] 96 Blood Pressure Source [Right Arm] Automatic Cuff Blood Pressure Position [Right Arm] Sitting 02 Sat by Pulse Oximetry 97 Oxygen Delivery Method Room Air Lab Data Lab Results 06/27/24 15:12: Urine Color Yellow, Urine Appearance Clear, Urine pH 7.5, Ur Specific [place] 1.020, Urine Protein Negative, Urine Glucose (UA) Negative, Urine Ketones Negative, Urine Blood Negative, Urine Nitrate Negative, Urine Bilirubin Negative, Urine Urobilinogen 0.2, Ur Leukocyte Esterase Trace A, Urine RBC None, Urine WBC Occasional, Ur Squamous Epith Cells Occasional, Urine Bacteria Trace 06/27/24 15:30: WBC 11.1 H, RBC 4.12 L, Hgb 12.1 L, Hct 37.2, MCV 90.3, MCH 29.4, MCHC 32.5, RDW 13.3, Plt Count 296, MPV 9.4, Neut % (Auto) 75.1, Lymph % (Auto) 17.1, [place] % (Auto) 6.5, Eos % (Auto) 0.5, Baso % (Auto) 0.3, Neut # (Auto) 8.3 H, Lymph # (Auto) 1.9, [place] # (Auto) 0.7, Eos # (Auto) 0.1, Baso # (Auto) 0.0, Sodium 138, Potassium 4.0, Chloride 101, Carbon Dioxide 34 H, Anion Gap 7.0, BUN 6 L, Creatinine 0.40 L, Estimated Creat Clear 107, Estimated GFR 161, Est GFR ( Amer) 195, Glucose 100, Calcium 8.6, Total Bilirubin 0.6, AST 34, ALT 36, Alkaline Phosphatase 94, Troponin I < 0.01, Total Protein 7.3, Albumin 4.3, Globulin 3.0, Albumin/Globulin Ratio 1.4 06/27/24 15:30 06/27/24 15:30 Orders (Tests/Meds): ED MEDICATIONS Discontinued Medications Generic Name Dose Route Start Last Admin Trade Name Freq PRN Reason Stop Dose Admin Acetaminophen 500 mg 06/27/24 15:20 06/27/24 15:36 Acetaminophen 500mg Tab PO 06/27/24 15:21 500 mg ONCE ONE Administration Lidocaine 1 each 06/27/24 15:31 06/27/24 15:36 Lidocaine 5% Transdermal Patch TP 06/27/24 15:32 1 each ONCE ONE Administration Methocarbamol 500 mg 06/27/24 21:00 06/27/24 17:04 Methocarbamol 500mg Tablet PO 07/27/24 20:59 500 mg BID GHANSHYAM Administration ORDERS Category Date Time Status CXR --portable [XR chest portable] Stat Exams 06/27/24 15:20 Completed CBC w/Auto Diff [Complete Blood Count Auto Diff] Stat Lab 06/27/24 15:30 Completed CMP [Comprehensive Metabolic Panel] Stat Lab 06/27/24 15:30 Completed Trop I [Troponin I] Stat Lab 06/27/24 15:30 Completed Troponin I Q3H Lab 06/27/24 18:30 Ordered Troponin I Q3H Lab 06/27/24 21:30 Ordered UA [Urinalysis and Microscopic] Stat Lab 06/27/24 15:12 Completed Urine Culture Stat Micro 06/27/24 15:12 Received Medical Decision Narrative: In summary, patient is a 63-year-old female PMHx obesity, migraines, hypertension, asthma, sciatica, Crohn's who presents to the ED with complaints of chest pain. Patient describes the pain is located on the lateral left aspect of her chest over her rib area. Patient states she has had this in the past. States when she moves the pain is worse. Patient has been seen in the ED multiple times for different complaints within the past several months. She denies any change in medications. Denies any trauma or injuries to the area. Denies any recent falls. Denies current tobacco or vaping. Upon physical exam patient is alert, oriented and cooperative. She is stable. Physical exam is remarkable for left lateral rib tenderness. No rash noted. Denies fever, chills, headache, visual disturbances, posterior neck pain, shortness of breath, abdominal pain, nausea, vomiting, dysuria. Differential diagnosis include ACS, dissection, shingles, pneumonia, pneumothorax, cellulitis, musculoskeletal pain, other infectious process. Discussed with patient that we will proceed with labs and chest x-ray. Advised her we will symptomatically treat her with Lidoderm and Robaxin. CBC unremarkable for any leukocytosis, stable H&H. CMP unremarkable for any actionable abnormalities. Troponin < 0.01. Final read of the chest x-ray remarkable for chronic changes, no acute cardiopulmonary process. Upon reassessment, patient was asleep when I entered the room. Discussed with patient that she most likely has musculoskeletal chest pain. She states that she did improve after the Robaxin and Lidoderm patch. Advised her that I will send Robaxin to the pharmacy. Discussed that she will need to follow-up with her PCP within 7 days. We discussed return precautions to the ED and patient verbalized understanding. She was ambulatory without difficulty from the ED. <Feliciano Wilson MD - Last Filed: 06/27/24 17:51> Vital Signs: 06/27/24 15:00 06/27/24 17:24 Temperature 97.2 F L 97.9 F Temperature Source Temporal Artery Scan Pulse Rate 75 Pulse Rate [Right] 70 Respiratory Rate 18 18 Blood Pressure 132/74 Blood Pressure [Right Arm] 147/71 H Blood Pressure Mean [Right Arm] 96 Blood Pressure Source [Right Arm] Automatic Cuff Blood Pressure Position [Right Arm] Sitting 02 Sat by Pulse Oximetry 97 Oxygen Delivery Method Room Air Lab Data Lab Results 06/27/24 15:12: Urine Color Yellow, Urine Appearance Clear, Urine pH 7.5, Ur Specific [place] 1.020, Urine Protein Negative, Urine Glucose (UA) Negative, Urine Ketones Negative, Urine Blood Negative, Urine Nitrate Negative, Urine Bilirubin Negative, Urine Urobilinogen 0.2, Ur Leukocyte Esterase Trace A, Urine RBC None, Urine WBC Occasional, Ur Squamous Epith Cells Occasional, Urine Bacteria Trace 06/27/24 15:30: WBC 11.1 H, RBC 4.12 L, Hgb 12.1 L, Hct 37.2, MCV 90.3, MCH 29.4, MCHC 32.5, RDW 13.3, Plt Count 296, MPV 9.4, Neut % (Auto) 75.1, Lymph % (Auto) 17.1, [place] % (Auto) 6.5, Eos % (Auto) 0.5, Baso % (Auto) 0.3, Neut # (Auto) 8.3 H, Lymph # (Auto) 1.9, [place] # (Auto) 0.7, Eos # (Auto) 0.1, Baso # (Auto) 0.0, Sodium 138, Potassium 4.0, Chloride 101, Carbon Dioxide 34 H, Anion Gap 7.0, BUN 6 L, Creatinine 0.40 L, Estimated Creat Clear 107, Estimated GFR 161, Est GFR ( Amer) 195, Glucose 100, Calcium 8.6, Total Bilirubin 0.6, AST 34, ALT 36, Alkaline Phosphatase 94, Troponin I < 0.01, Total Protein 7.3, Albumin 4.3, Globulin 3.0, Albumin/Globulin Ratio 1.4 Orders (Tests/Meds): ED MEDICATIONS Discontinued Medications Generic Name Dose Route Start Last Admin Trade Name Jamari PRN Reason Stop Dose Admin Acetaminophen 500 mg 06/27/24 15:20 06/27/24 15:36 Acetaminophen 500mg Tab PO 06/27/24 15:21 500 mg ONCE ONE Administration Lidocaine 1 each 06/27/24 15:31 06/27/24 15:36 Lidocaine 5% Transdermal Patch TP 06/27/24 15:32 1 each ONCE ONE Administration Methocarbamol 500 mg 06/27/24 21:00 06/27/24 17:04 Methocarbamol 500mg Tablet PO 07/27/24 20:59 500 mg BID GHANSHYAM Administration ORDERS Category Date Time Status CXR --portable [XR chest portable] Stat Exams 06/27/24 15:20 Completed CBC w/Auto Diff [Complete Blood Count Auto Diff] Stat Lab 06/27/24 15:30 Completed CMP [Comprehensive Metabolic Panel] Stat Lab 06/27/24 15:30 Completed Trop I [Troponin I] Stat Lab 06/27/24 15:30 Completed Troponin I Q3H Lab 06/27/24 18:30 Ordered Troponin I Q3H Lab 06/27/24 21:30 Ordered UA [Urinalysis and Microscopic] Stat Lab 06/27/24 15:12 Completed Urine Culture Stat Micro 06/27/24 15:12 Received ECG Data Tracing #1: I reviewed this ECG and interpreted as documented below: (Sinus rhythm 73 bpm with AL 147, QRS 110, QTc 409. Incomplete right bundle branch block morphology with normal axis. Isolated T wave inversions V4 with mild ST depression, but no reciprocal changes) Medical Decision Narrative: In summary, patient is a 63-year-old female PMHx obesity, migraines, hypertension, asthma, sciatica, Crohn's who presents to the ED with complaints of chest pain. Patient describes the pain is located on the lateral left aspect of her chest over her rib area. Patient states she has had this in the past. States when she moves the pain is worse. Patient has been seen in the ED multiple times for different complaints within the past several months. She denies any change in medications. Denies any trauma or injuries to the area. Denies any recent falls. Denies current tobacco or vaping. Upon physical exam patient is alert, oriented and cooperative. She is stable. Physical exam is remarkable for left lateral rib tenderness. No rash noted. Denies fever, chills, headache, visual disturbances, posterior neck pain, shortness of breath, abdominal pain, nausea, vomiting, dysuria. Differential diagnosis include ACS, dissection, shingles, pneumonia, pneumothorax, cellulitis, musculoskeletal pain, other infectious process. Discussed with patient that we will proceed with labs and chest x-ray. Advised her we will symptomatically treat her with Lidoderm and Robaxin. CBC unremarkable for any leukocytosis, stable H&H. CMP unremarkable for any actionable abnormalities. Troponin < 0.01. Final read of the chest x-ray remarkable for chronic changes, no acute cardiopulmonary process. Upon reassessment, patient was asleep when I entered the room. Discussed with patient that she most likely has musculoskeletal chest pain. She states that she did improve after the Robaxin and Lidoderm patch. Advised her that I will send Robaxin to the pharmacy. Discussed that she will need to follow-up with her PCP within 7 days. We discussed return precautions to the ED and patient verbalized understanding. She was ambulatory without difficulty from the ED. I was consulted by the ASYA, and we discussed the complexity of the problems being addressed. I approved the treatment and management plan for this patient's care in the Emergency Department, thus performing a substantive portion of the medical decision making. Feliciano Wilson MD Critical Care <Mona Dangelo APRN - Last Filed: 06/27/24 17:48> Critical Care Time Critical Care Time: No
[2024-06-27] MEDS: ACETAMINOPHEN 500MG TAB 500 MG PO (15:36)
[2024-06-27] MEDS: LIDOCAINE 5% TRANSDERMAL PATCH 1 EACH TP (15:36)
[2024-06-27 15:40] LABS: Basophils % 0.3 % (0.1-2.0); Eosinophils # 0.1 K/mm3 (0.0-0.4); Eosinophils % 0.5 % (0.1-12.0); Hematocrit 37.2 % (37.0-47.0); Hemoglobin 12.1 g/dL (12.2-16.2); Lymphocytes # 1.9 K/mm3 (0.7-4.5); Lymphocytes % 17.1 % (10-50); Mean Corpuscular HGB Conc 32.5 g/dL (31.8-35.4); Mean Corpuscular Hemoglobin 29.4 pg (27.0-31.2); Mean Corpuscular Volume 90.3 fl (81-99); Mean Platelet Volume 9.4 fl (7.4-10.4); Monocytes # 0.7 K/mm3 (0.1-1.0); Monocytes % 6.5 % (1.7-9.3); Neutrophils # 8.3 K/mm3 (1.8-7.8); Neutrophils % 75.1 % (37.0-80.0); Platelet Count 296 K/mm3 (142-424); Red Blood Count 4.12 M/mm3 (4.20-5.40); Red Cell Distribution Width 13.3 % (11.5-17.5); White Blood Count 11.1 K/mm3 (4.8-10.8)
[2024-06-27 15:55] LABS: Chloride 101 mmol/L (98-107)
[2024-06-27 15:56] LABS: Microscopic, Urine URINE MICROSCOPIC (MICROSCOPIC)
[2024-06-27 15:56] LABS: Albumin Level 4.3 g/dl (3.5-5.0); Sodium 138 mmol/L (136-145)
[2024-06-27 15:58] LABS: Blood Urea Nitrogen 6 mg/dl (7-17); Carbon Dioxide 34 mmol/L (22.0-30.0); Creatinine Clearance Estimated 107 mL/min (50-200); Estimated Glomerular Filt Rate 161 ml/min (>60); GFR (African American) 195 ML/MIN (>60)
[2024-06-27 15:59] LABS: Alanine Aminotransferase 36 U/L (12-78); Albumin/Globulin Ratio 1.4 (1.1-1.8); Alkaline Phosphatase 94 U/L (38-126); Aspartate Amino Transferase 34 U/L (14-36); Bilirubin,Total 0.6 mg/dl (0.2-1.3); Calcium 8.6 mg/dl (8.4-10.2); Glucose 100 mg/dl (74-100); Total Protein,Serum 7.3 g/dl (6.3-8.2)
[2024-06-27 16:02] LABS: Appearance,Urine Clear (Clear); Color,Urine Yellow (Yellow)
[2024-06-27 16:03] LABS: Bilirubin,Urine Negative (Negative); Blood, Urine Negative (Negative); Glucose,Urine (UA) Negative (Negative); Ketones,Urine Negative (Negative); Leukocyte Esterase,Urine Trace (Negative); Nitrate,Urine Negative (Negative); PH,Urine 7.5 (5.0-8.5); Protein,Urine Negative (Negative); Urobilinogen,Urine 0.2 EU/dl (0.2)
[2024-06-27 16:11] LABS: Troponin I < 0.01 ng/ml (0.00-0.034)
[2024-06-27 16:21] LABS: Bacteria,Urine Trace /lpf; Squamous Epithelial Cell,Urine Occasional #/hpf (0-5); WBC,Urine Occasional #/hpf (0-3)
[2024-06-27] MEDS: METHOCARBAMOL 500MG TABLET 500 MG PO (17:04)
[2024-06-27 17:24] VITALS: BP 132/74; PULSE 75; RESP 18; TEMP 36.6; O2SAT 99
== END 2024-06-27 17:27 | disposition home or self-care (01) ==
PROVIDERS: Nurse Practitioner; Emergency Provider Emergency Medicine; PCP Family Medicine
DX: R07.9 Chest pain, unspecified (principal); M25.512 Pain in left shoulder
CPT/HCPCS: 71045; 80053; 81001; 84484; 85025; 87086; 93005; 99284

== ENCOUNTER 2024-06-30 06:41 | Emergency (ER) | payer MEDICAID, SELFPAY ==
[2024-06-30 07:18] VITALS: BP 115/70; PULSE 79; RESP 20; TEMP 36.6; O2SAT 99; BMI 43.0
--- NOTE | 2024-06-30 07:25 | XR_ITS ---
FINAL REPORT CLINICAL HISTORY: fall on L knee, pain COMPARISON: None FINDINGS: Two views of the left tibia and fibula were obtained. There is no acute fracture or dislocation. Degenerative changes are seen of the ankle and knee joints. There is no soft tissue abnormality. IMPRESSION: No acute bony abnormality. Reviewed, Interpreted and Dictated by Ray Cotto MD Transcribed by Matilde Gramajo Authenticated and [facility]
--- NOTE | 2024-06-30 07:25 | XR_ITS ---
FINAL REPORT CLINICAL HISTORY: fall on L knee, pain COMPARISON: None FINDINGS: LEFT FEMUR Two views show no evidence of an acute, displaced fracture or dislocation of the visualized bony architecture. The joint spaces appear normal. IMPRESSION: Unremarkable exam. Reviewed, Interpreted and Dictated by Ray Cotto MD Transcribed by Matilde Gramajo Authenticated and [facility]
--- NOTE | 2024-06-30 07:25 | XR_ITS ---
FINAL REPORT CLINICAL HISTORY: fall on L knee, pain, swelling COMPARISON: 08/17/2023 FINDINGS: LEFT KNEE Three views demonstrate no acute fracture or dislocation. There are mild degenerative changes. Chondrocalcinosis is noted. No acute soft tissue abnormality is seen. IMPRESSION: Degenerative changes without acute bony abnormality. Reviewed, Interpreted and Dictated by Ray Cotto MD Transcribed by Matilde Gramajo Authenticated and [facility]
--- NOTE | 2024-06-30 07:28 | HMH.EDGENADL ---
Discharge Plan Disposition Patient Disposition: Home, Self-Care Condition: Good Prescriptions Prescriptions: No Action ergocalciferol (vitamin D2) 1,250 mcg (50,000 unit) capsule See Rx Instructions .ROUTE .COMPLEX Qty: 5 3RF Dose Instruction: TAKE ONE CAPSULE BY MOUTH EVERY WEEK Rx Instructions: TAKE ONE CAPSULE BY MOUTH EVERY WEEK albuterol sulfate 90 mcg/actuation HFA aerosol inhaler See Rx Instructions .ROUTE .COMPLEX Qty: 18 10RF Dose Instruction: INHALE 1 PUFF BY MOUTH EVERY 4 TO 6 HOURS NEEDED FOR SHORTNESS OF BREATH OR WHEEZING Rx Instructions: INHALE 1 PUFF BY MOUTH EVERY 4 TO 6 HOURS NEEDED FOR SHORTNESS OF BREATH OR WHEEZING propranolol 60 mg capsule,extended release 24 hr 60 mg PO QHS hydroxyzine HCl 25 mg tablet 25 mg PO Q8H PRN (Reason: itching) Qty: 30 0RF albuterol sulfate 2.5 mg /3 mL (0.083 %) solution for nebulization See Rx Instructions .ROUTE .COMPLEX Qty: 180 0RF Dose Instruction: INHALE CONTENTS OF 1 VIAL VIA NEBULIZER UP TO FOUR TIMES A DAY NEEDED FOR SHORTNESS OF AIR Rx Instructions: INHALE CONTENTS OF 1 VIAL VIA NEBULIZER UP TO FOUR TIMES A DAY NEEDED FOR SHORTNESS OF AIR furosemide 40 mg tablet 40 mg PO DAILY PRN (Reason: edema) Qty: 30 2RF sumatriptan succinate 100 mg tablet See Rx Instructions .ROUTE .COMPLEX Qty: 9 0RF Dose Instruction: TAKE 1 TABLET BY MOUTH AT ONSET OF MIGRAINE, THEN MAY REPEAT 1 TIME IN 2 HOURS IF NO RELIEF. MAX OF 2 IN 24 HOURS. Rx Instructions: TAKE 1 TABLET BY MOUTH AT ONSET OF MIGRAINE, THEN MAY REPEAT 1 TIME IN 2 HOURS IF NO RELIEF. MAX OF 2 IN 24 HOURS. benzonatate 100 mg capsule 100 mg PO TID PRN (Reason: cough) Qty: 30 0RF bljqpiwdiwsyaer-ppdjmgbqz-MO [Bromfed DM] 2-30-10 mg/5 mL syrup 5 ml PO Q6H PRN (Reason: cold symptoms) Qty: 118 0RF methocarbamol 750 mg tablet 1,500 mg PO TID 5 Days Qty: 30 0RF propranolol 60 mg capsule,extended release 24 hr 60 mg PO DAILY ondansetron HCl 4 mg tablet 4 mg PO Q8H PRN (Reason: nausea and vomiting) 5 Days Qty: 30 0RF vancomycin [Vancocin] 125 mg capsule 125 mg PO Q6H 10 Days Qty: 40 0RF ondansetron 4 mg tablet,disintegrating 4 mg PO Q8H PRN (Reason: nausea and vomiting) 4 Days Qty: 12 0RF prednisone 20 mg tablet 40 mg PO DAILY 3 Days Qty: 6 0RF Rx Instructions: Start 06/23/24 hydrocortisone acetate [Anusol-HC] 25 mg suppository 25 mg [place] HS PRN (Reason: hemorrhoids) Qty: 24 0RF vancomycin 50 mg/mL recon soln 125 mg PO QID 14 Days Qty: 140 0RF cefdinir 300 mg capsule 300 mg PO BID 5 Days Qty: 10 0RF valacyclovir 1 gram tablet 1,000 mg PO BID 14 Days Qty: 28 0RF prednisone 20 mg tablet 20 mg PO BID 5 Days Qty: 10 0RF methocarbamol 500 mg tablet 500 mg PO HS Qty: 30 0RF methocarbamol 500 mg tablet 500 mg PO HS Qty: 30 0RF Referrals Follow up/Referrals: Rei Balderas PA [Primary Care Provider] - See instructions Julio Coffey DO [Staff Physician] - See instructions Activity Restrictions/Add. Instructions Additional Instructions/Restrictions: You were evaluated in the emergency department today. At this time, your workup is very reassuring. The ER is not a substitute for primary care, so it is important that you follow-up with your primary care provider for reassessment. Take Tylenol and ibuprofen at home as needed for pain. For your knee pain, if this continues, you can choose to follow-up with orthopedics. I am providing with information for Dr. Coffey. Clinical Impressions Clinical Impression: Localized swelling of both lower legs, Knee pain, left Instructions Patient Instructions: DI for Dependent Edema, DI for Knee Pain, DI for Peripheral Edema -- Bilateral Print Language Print Language: Malay Discharge ED Provider: Lacey Christensen General Adult HPI General Chief complaint: PAIN Stated complaint: abd pain, swelling in left leg Time Seen by Provider: 06/30/24 07:24 Mode of Arrival: Wheelchair Source of Information: Patient Description of Symptoms (Recalled from ER Triage Doc. by RN): pt is here today for hernia pain and leg pain and swelling. pt states the left leg is worse than the right but they both hurt and are swollen, pt states she fell at home 3 days ago no trauma or loc. pt is tearful and anxious upon triage. when asking how who patient pcp was she responded with susanne cowan i mean emilie, all i want is some pain medicine History of Present Illness HPI narrative: This patient is a 63-year-old female with a history of morbid obesity, Crohn's disease, migraines, and hypertension presenting to the emergency department for concern left knee pain, bilateral leg pain and swelling. She also notes that she has a hernia that always hurts. She states that her legs are swollen and feel like they are to explode, she states the left is worse than the right after falling on it a few days ago. She did not hit her head or lose consciousness. She states she tripped and fell forward on the bathroom, landing on her left knee. She is requesting pain medication at this time. She has been evaluated in the ED multiple times over the last several weeks for, diarrhea, chest pain, back pain. She has been diagnosed with C. difficile, and I asked her if she has been taking her medication she was prescribed. She states that she is taking something but she does not know what it is, she is not sure if it was that vancomycin prescribed for C. difficile or not. She notes she was having a lot of diarrhea but is not now. No nausea or vomiting. Related Data Home Medications ?Medication ?Instructions ?Recorded ?Confirmed propranolol 60 mg capsule,24 60 mg PO QHS 06/09/24 06/09/24 hr,extended release propranolol 60 mg capsule,24 60 mg PO DAILY 06/17/24 06/17/24 hr,extended release Previous Rx's ?Medication ?Instructions ?Recorded albuterol sulfate 90 mcg/actuation See Rx Instructions .Route 02/12/24 aerosol inhaler .COMPLEX #18 grams ergocalciferol (vitamin D2) 1,250 See Rx Instructions .Route 02/12/24 mcg (50,000 unit) capsule .COMPLEX #5 caps albuterol sulfate 2.5 mg/3 mL See Rx Instructions .Route 04/14/24 (0.083 %) solution for nebulization .COMPLEX #180 mL methocarbamol 750 mg tablet 1,500 mg (2 x 750 mg) PO TID 5 04/18/24 days #30 tabs furosemide 40 mg tablet 40 mg PO DAILY PRN edema #30 tabs 05/12/24 sumatriptan succinate 100 mg tablet See Rx Instructions .Route 05/12/24 .COMPLEX #9 tabs prednisone 20 mg tablet 20 mg PO BID 5 days #10 tabs 06/07/24 valacyclovir 1 gram tablet 1,000 mg PO BID 14 days #28 tabs 06/07/24 hydroxyzine HCl 25 mg tablet 25 mg PO Q8H PRN itching #30 tabs 06/09/24 ondansetron HCl 4 mg tablet 4 mg PO Q8H PRN nausea and 06/17/24 vomiting 5 days #30 tabs vancomycin 125 mg capsule 125 mg PO Q6H 10 days #40 caps 06/17/24 (Vancocin) benzonatate 100 mg capsule 100 mg PO TID PRN cough #30 caps 06/20/24 cefdinir 300 mg capsule 300 mg PO BID 5 days #10 caps 06/22/24 hydrocortisone acetate 25 mg 25 mg [place] HS PRN hemorrhoids #24 ea 06/22/24 rectal suppository (Anusol-HC) ondansetron 4 mg disintegrating 4 mg PO Q8H PRN nausea and 06/22/24 tablet vomiting 4 days #12 tabs prednisone 20 mg tablet 40 mg (2 x 20 mg) PO DAILY 3 days 06/22/24 #6 tabs vancomycin 50 mg/mL oral solution 125 mg (2.5 mL) PO QID 14 days 06/22/24 #140 mL aaypscfdlybwyni-hamuhygcibyshxu-SX 5 ml PO Q6H PRN cold symptoms #118 06/23/24 2 mg-30 mg-10 mg/5 mL oral syrup mL (Bromfed DM) methocarbamol 500 mg tablet 500 mg PO HS #30 tabs 06/27/24 methocarbamol 500 mg tablet 500 mg PO HS #30 tabs 06/27/24 Allergies Allergy/AdvReac Type Severity Reaction Status Date / Time hydrocodone (HYDROCODONE) Allergy Unknown Verified 06/09/24 08:59 Penicillins (PENICILLINS) Allergy Unknown Verified 06/09/24 08:59 PFSH PFSH Disclaimer: The information contained in this section may have been updated after the patient was seen, as this information can be updated by other users. Medical History Onychomycosis Normal colonoscopy Vaginitis RLS (restless legs syndrome) Migraines Diverticulitis Abnormal EKG Bilateral arm pain Sinus bradycardia Chest pain Cervical spondylosis Sciatic nerve pain Asthma Hypertension Surgical History No pertinent past surgical history Family History Family/Other No significant family history Social History Smoking Status: Never smoker alcohol intake: never substance use type: denies use current occupational status: unemployed Travel in the last 8 weeks: None household members: spouse housing: house caffeine: Yes Have you lived/traveled outside US in past 30 days?: No Contact w/someone who lives/traveled outside US past 30 days?: No Exposure to someone with infectious disease in past 14 days?: No Do you have a fever (greater than 100.4 F or 38 C)?: No Have you tested positive for COVID-19: No Exposed to someone with COVID-19 in past 14 days?: No Do you have a sore throat?: No Do you have a cough?: No Do you have any weakness?: No Do you have any diarrhea?: No Are you experiencing any unusual bleeding?: No Do you have any muscle aches/pain?: No Do you have any abdominal pain?: Yes Are you experiencing loss of taste or smell?: No Other Medical History Have you received the Flu Vaccine for this season: No Have you received the Pneumonia Vaccine: No ROS Obtained: Yes All systems reviewed & no additional complaints except as documented Physical Exam General General appearance: alert and in no apparent distress Head Head exam: atraumatic and normocephalic Eye Eye exam: Present normal appearance, PERRL and EOMI ENT ENT exam: Present normal exam, normal oropharynx, mucous membranes moist and normal external ear exam Neck Neck exam: Present normal inspection, full ROM and trachea midline; Absent tenderness Chest Chest inspection: Present normal inspection and symmetric chest wall rise; Absent tenderness Respiratory Respiratory exam: Present normal lung sounds bilaterally; Absent respiratory distress, wheezes, stridor or accessory muscle use Cardiovascular Cardiovascular exam: Present regular rate and normal rhythm Abdominal Exam Abdominal exam: Present soft; Absent distention, tenderness or guarding Extremities Exam Extremities exam: Present full ROM, normal capillary refill and edema (Symmetric bilateral lower extremity edema, no calf pain/tenderness. She does have symptoms of patient's left knee. Neurovascularly intact distally. No significant joint erythema or effusion to suggest septic arthritis); Absent tenderness Back Exam Back exam: Present normal inspection and full ROM; Absent tenderness Neurological Exam Neurological exam: Present alert, oriented X3, CN II-XII intact and normal gait; Absent motor sensory deficit Psychiatric Psychiatric exam: Present normal affect and normal mood Skin Skin exam: Present warm and dry Medical Decision Making Medical Records Medical records reviewed: Yes I reviewed the patient's medical records. Screening: Per USPSTF and CDC recommendations, given the prevalence of disease in our region, it is our hospital?s policy to screen for HIV and viral Hepatitis for all patients aged 18 and over and those with ongoing risk factors. Olu Inquiry Pt receiving controlled substance: No Vital Signs: 06/30/24 07:18 06/30/24 08:00 06/30/24 08:30 Temperature 97.9 F Temperature Source Oral Pulse Rate 77 68 Pulse Rate [Left Radial] 79 Respiratory Rate 20 Blood Pressure 118/70 104/62 L Blood Pressure [Right Arm] 115/70 Blood Pressure Mean 71 Blood Pressure Mean [Right Arm] 85 02 Sat by Pulse Oximetry 99 94 L 97 Oxygen Delivery Method Room Air Room Air 06/30/24 09:12 Temperature 98.2 F Temperature Source Pulse Rate 80 Pulse Rate [Left Radial] Respiratory Rate 20 Blood Pressure 118/79 Blood Pressure [Right Arm] Blood Pressure Mean Blood Pressure Mean [Right Arm] 02 Sat by Pulse Oximetry Oxygen Delivery Method Room Air Lab Data Lab results reviewed: Yes I reviewed the patient's lab results. Lab Results 06/30/24 08:05: WBC 10.4, RBC 3.97 L, Hgb 11.7 L, Hct 34.9 L, MCV 87.9, MCH 29.5, MCHC 33.5, RDW 13.3, Plt Count 326, MPV 9.4, Neut % (Auto) 69.8, Lymph % (Auto) 17.4, [place] % (Auto) 11.5 H, Eos % (Auto) 0.3, Baso % (Auto) 0.4, Neut # (Auto) 7.3, Lymph # (Auto) 1.8, [place] # (Auto) 1.2 H, Eos # (Auto) 0.0, Baso # (Auto) 0.0, Sodium 133 L, Potassium 4.2, Chloride 101, Carbon Dioxide 25, Anion Gap 11.2, BUN 7, Creatinine 0.30 L D, Estimated Creat Clear 56, Estimated GFR 225, Est GFR ( Amer) 272 D, Glucose 123 H, Calcium 8.9, Total Bilirubin 1.0, AST 34, ALT 29, Alkaline Phosphatase 98, NT-Pro-B Natriuret Pep 31.7, Total Protein 7.8, Albumin 4.3, Globulin 3.5 H, Albumin/Globulin Ratio 1.2 06/30/24 08:05 06/30/24 08:05 Orders (Tests/Meds): ED MEDICATIONS Discontinued Medications Generic Name Dose Route Start Last Admin Trade Name Freq PRN Reason Stop Dose Admin Acetaminophen 1,000 mg 06/30/24 07:28 06/30/24 08:10 Acetaminophen 500mg Tab PO 06/30/24 07:29 1,000 mg ONCE ONE Administration Ketorolac Tromethamine 15 mg 06/30/24 07:28 06/30/24 08:10 Ketorolac 30mg/Ml Vial IV 06/30/24 07:29 15 mg ONCE ONE Administration ORDERS Category Date Time Status Femur XR left 2 views [XR femur LT 2V] Stat Exams 06/30/24 07:25 Completed Knee XR left 3 views [XR knee LT 3V] Stat Exams 06/30/24 07:25 Completed Tibia/fibula XR left 2 views [XR tibia fibula LT 2V] Exams 06/30/24 07:25 Completed Stat BNP [NT Pro Brain Natriuretic Pep.] Stat Lab 06/30/24 08:05 Completed Complete Blood Count Auto Diff Stat Lab 06/30/24 08:05 Completed Comprehensive Metabolic Panel Stat Lab 06/30/24 08:05 Completed Medical Decision Narrative: In summary, this patient is a 63-year-old female presenting to the Emergency Department for evaluation of bilateral leg swelling and pain, left knee pain after mechanical ground-level fall, and hernia pain. Differential diagnoses considered include but are not limited to dependent edema, electrolyte derangements, traumatic injury from fall, venous insufficiency, arterial insufficiency, CHF, ROME. Ruling out the most morbid conditions drove assessment. It should be noted patient's history includes morbid obesity, hypertension, migraines, restless legs which are not at goal therapy. This complicates all aspects of care by increasing patient's risk for morbidity. I reviewed patient's past medical records and noted multiple recent ED evaluations for various complaints. I also noted that she has a fat-containing umbilical hernia but I do not see any other concerning hernias based on workup. She comes in a lot complaining of hernia pain.. On exam, the patient is sitting upright in no acute distress. Abdominal exam is benign. She states she think she has been taking the medication she was prescribed to treat C. difficile, and I discussed the importance of making sure that she completes the full course of this medication. She is no longer having diarrhea and is not having any nausea or vomiting. She has symmetric bilateral lower extremity edema without redness, warmth, streaking, or other skin changes. No joint effusions or erythema to suggest septic arthritis. She is neurovascularly intact with warm and well-perfused extremities so doubt clinically significant arterial insufficiency. I am not concerned for DVT based on symmetric nature of pedal and distal leg edema without significant calf swelling or tenderness. Workup included x-rays of the left lower extremity given that she has pain after mechanical ground-level fall as well as lab evaluation including CBC, CMP, BNP. She was given IV Toradol and oral Tylenol for symptomatic improvement of pain. I independently interpreted x-rays prior to the radiologist read and noted no acute fracture. Please see their read for final interpretation. Labs were obtained that demonstrated reassuring CBC with no significant leukocytosis. She does have mild anemia with no notable sources of bleeding. Chemistry is reassuring with normal kidney function, normal BNP. She does have mild hyponatremia which I do not feel is clinically significant at this time. On reassessment, patient had good improvement after administration of Toradol and Tylenol. She is feeling better. I do not feel that she has any acute life-threatening pathology requiring further ED workup or inpatient evaluation. Given this, I feel that she is appropriate for discharge home. She was given instructions for close follow-up with her primary care provider as well as strict return precautions. She was discharged after all questions were answered Critical Care Critical Care Time Critical Care Time: No
--- NOTE | 2024-06-30 07:36 | PC.NURSE ---
pt is at xray
--- NOTE | 2024-06-30 07:49 | PC.NURSE ---
returned from xray via wheelchair and radiologist
[2024-06-30 08:00] VITALS: BP 118/70; PULSE 77; O2SAT 94
[2024-06-30] MEDS: ACETAMINOPHEN 500MG TAB 1000 MG PO (08:10)
[2024-06-30] MEDS: KETOROLAC 30MG/ML VIAL 15 MG IV (08:10)
[2024-06-30 08:13] LABS: Basophils % 0.4 % (0.1-2.0); Eosinophils % 0.3 % (0.1-12.0); Hematocrit 34.9 % (37.0-47.0); Hemoglobin 11.7 g/dL (12.2-16.2); Lymphocytes # 1.8 K/mm3 (0.7-4.5); Lymphocytes % 17.4 % (10-50); Mean Corpuscular HGB Conc 33.5 g/dL (31.8-35.4); Mean Corpuscular Hemoglobin 29.5 pg (27.0-31.2); Mean Corpuscular Volume 87.9 fl (81-99); Mean Platelet Volume 9.4 fl (7.4-10.4); Monocytes # 1.2 K/mm3 (0.1-1.0); Monocytes % 11.5 % (1.7-9.3); Neutrophils # 7.3 K/mm3 (1.8-7.8); Neutrophils % 69.8 % (37.0-80.0); Platelet Count 326 K/mm3 (142-424); Red Blood Count 3.97 M/mm3 (4.20-5.40); Red Cell Distribution Width 13.3 % (11.5-17.5); White Blood Count 10.4 K/mm3 (4.8-10.8)
--- NOTE | 2024-06-30 08:19 | PC.NURSE ---
while nurse was starting an iv the patient yelped and screamed bloody murder even though the iv went in with ease and no issues, pt was also telling nurse the whole time her right arm was better even though the iv in the left arm worked wonderfully. pt states she is in a lot pain, er md made aware and iv toradol and po tylenol given
[2024-06-30 08:22] LABS: Albumin Level 4.3 g/dl (3.5-5.0); Chloride 101 mmol/L (98-107); Potassium 4.2 mmoL/L (3.5-5.1); Sodium 133 mmol/L (136-145)
[2024-06-30 08:25] LABS: Alanine Aminotransferase 29 U/L (12-78); Albumin/Globulin Ratio 1.2 (1.1-1.8); Alkaline Phosphatase 98 U/L (38-126); Anion Gap 11.2 mEq/L (5-15); Aspartate Amino Transferase 34 U/L (14-36); Blood Urea Nitrogen 7 mg/dl (7-17); Calcium 8.9 mg/dl (8.4-10.2); Carbon Dioxide 25 mmol/L (22.0-30.0); Creatinine Clearance Estimated 56 mL/min (50-200); Estimated Glomerular Filt Rate 225 ml/min (>60); GFR (African American) 272 ML/MIN (>60); Globulin 3.5 g/dL (1.3-3.2); Glucose 123 mg/dl (74-100); Total Protein,Serum 7.8 g/dl (6.3-8.2)
[2024-06-30 08:30] VITALS: BP 104/62; PULSE 68; O2SAT 97
[2024-06-30 08:34] LABS: NT Pro Brain Natriuretic Pep. 31.7 pg/mL (0-125)
[2024-06-30 09:12] VITALS: BP 118/79; PULSE 80; RESP 20; TEMP 36.8; O2SAT 98
== END 2024-06-30 09:13 | disposition home or self-care (01) ==
PROVIDERS: Emergency Provider Emergency Medicine; PCP Physician Assistant
DX: R22.43 Localized swelling, mass and lump, lower limb, bilateral (principal); M25.562 Pain in left knee; W19.XXXA Unspecified fall, initial encounter
CPT/HCPCS: 73552; 73562; 73590; 80053; 83880; 85025; 96374; 99283; J1885

== ENCOUNTER 2024-08-11 15:55 | Outpatient (CLI) | payer MEDICAID, SELFPAY | END 2024-08-11 23:59 | disposition home or self-care (01) | LOC: LAB.DROPOF 08-12 11:09 | PROVIDERS: PCP Nurse Practitioner; Visit Provider Nurse Practitioner | DX: N30.00 Acute cystitis without hematuria (principal) | CPT/HCPCS: 87086 ==

== ENCOUNTER 2024-08-15 13:44 | Outpatient (CLI) | payer MEDICAID, SELFPAY ==
--- NOTE | 2024-08-15 13:49 | XR_ITS ---
FINAL REPORT CLINICAL HISTORY: left foot cellulitis, possible foreign body COMPARISON: 05/24/2023 FINDINGS: LEFT FOOT Three views of the left foot demonstrate no acute fracture or dislocation. The visualized joint spaces are normally aligned. There is a moderate plantar calcaneal spur. Soft tissue edema is noted over the dorsum of the foot. No evidence of radiopaque foreign body. IMPRESSION: Soft tissue edema without acute bony abnormality. No radiopaque foreign body. Reviewed, Interpreted and Dictated by Kurtis Ruby MD Transcribed by Marisa Yuan Authenticated and [facility]
[2024-08-15 14:05] LABS: Basophils # 0.1 K/mm3 (0-0.2); Basophils % 0.8 % (0.1-2.0); Eosinophils # 0.1 Kmm3 (0.0-0.4); Eosinophils % 1.7 % (0.1-12.0); Hematocrit 39.8 % (37.0-47.0); Hemoglobin 12.9 g/dL (12.2-16.2); Lymphocytes # 2.7 K/mm3 (0.7-4.5); Mean Corpuscular HGB Conc 32.4 g/dL (31.8-35.4); Mean Corpuscular Hemoglobin 29.5 pg (27.0-31.2); Mean Corpuscular Volume 91.1 fl (81-99); Monocytes # 0.5 K/mm3 (0.1-1.0); Monocytes % 7.5 % (1.7-9.3); Neutrophils # 3.1 K/mm3 (1.8-7.8); Neutrophils % 47.8 % (37.0-80.0); Nucleated Red Blood Cells # 0 10^3/uL; Nucleated Red Blood Cells % 0 %; Platelet Count 299 K/mm3 (142-424); Red Blood Count 4.37 M/mm3 (4.20-5.40); Red Cell Distribution Width 13.8 % (11.5-17.5); Red Cell Distribution Width-SD 46.7 fL; White Blood Count 6.5 K/mm3 (4.8-10.8)
[2024-08-15 14:32] LABS: Erythrocyte Sedimentation Rate 29 mm/hr (0-30)
[2024-08-15 14:57] LABS: Albumin Level 4.4 g/dl (3.5-5.0); Chloride 107 mmol/L (98-107); Potassium 4.3 mmoL/L (3.5-5.1); Sodium 140 mmol/L (136-145)
[2024-08-15 14:59] LABS: Alanine Aminotransferase 14 U/L (12-78); Blood Urea Nitrogen 29 mg/dl (7-17); Estimated Glomerular Filt Rate 85 ml/min (>60); GFR (African American) 102 ML/MIN (>60)
[2024-08-15 15:00] LABS: Albumin/Globulin Ratio 1.6 (1.1-1.8); Alkaline Phosphatase 93 U/L (38-126); Anion Gap 11.3 mEq/L (5-15); Aspartate Amino Transferase 23 U/L (14-36); Bilirubin,Total 0.3 mg/dl (0.2-1.3); Carbon Dioxide 26 mmol/L (22.0-30.0); Globulin 2.7 g/dL (1.3-3.2); Glucose 103 mg/dl (74-100); Total Protein,Serum 7.1 g/dl (6.3-8.2)
[2024-08-15 15:07] LABS: C-Reactive Protein 6.8 mg/L (0-4)
[2024-08-15 15:41] LABS: Hemoglobin A1C 5.7 % (4.0-6.0)
== END 2024-08-15 23:59 | disposition home or self-care (01) ==
LOC: RAD 13:46
PROVIDERS: PCP Nurse Practitioner Family; Visit Provider Nurse Practitioner
DX: L03.116 Cellulitis of left lower limb (principal)
CPT/HCPCS: 36415; 73630; 80053; 83036; 85025; 85651; 86140

== ENCOUNTER 2024-09-25 11:00 | Outpatient (CLI) | payer MEDICAID, SELFPAY | END 2024-09-25 23:59 | disposition home or self-care (01) | LOC: LAB.DROPOF 09-26 23:17 | PROVIDERS: PCP Nurse Practitioner Family; Visit Provider Nurse Practitioner Family | DX: R30.0 Dysuria (principal) | CPT/HCPCS: 87086 ==

== ENCOUNTER 2024-11-14 10:00 | Outpatient (CLI) | payer MEDICAID, SELFPAY | END 2024-11-14 23:59 | disposition home or self-care (01) | LOC: LAB.DROPOF 11-15 10:21 | PROVIDERS: PCP Nurse Practitioner Family; Visit Provider Nurse Practitioner Family | DX: N89.8 Other specified noninflammatory disorders of vagina (principal); R30.0 Dysuria | CPT/HCPCS: 87086 ==

== ENCOUNTER 2025-01-13 12:39 | Outpatient (CLI) | payer MEDICAID, SELFPAY ==
[2025-01-13 08:31] VITALS: BMI 41.3
--- NOTE | 2025-01-13 13:09 | ECG_ITS ---
APPROVED REPORT Exam: Resting ECG HR:63 bpm ECG Measurements Heart Rate 63 AXES DC 160 P 55 QRSd 109 QRS 57 QT 435 T 71 QTc 443 Conclusion SINUS RHYTHM POSSIBLE RIGHT VENTRICULAR CONDUCTION DELAY [RSR (QR) IN V1/V2] ABNORMAL ECG UNCONFIRMED REPORT Electronically signed by : Onesimo Barrett MD 01/14/2025 08:35:31
[2025-01-13 13:28] LABS: Alanine Aminotransferase 16 U/L (12-78); Albumin Level 4.3 g/dl (3.5-5.0); Albumin/Globulin Ratio 1.5 (1.1-1.8); Alkaline Phosphatase 104 U/L (38-126); Anion Gap 11.9 mEq/L (5-15); Aspartate Amino Transferase 21 U/L (14-36); Bilirubin,Total 0.6 mg/dl (0.2-1.3); Blood Urea Nitrogen 15 mg/dl (7-17); Calcium 8.9 mg/dl (8.4-10.2); Carbon Dioxide 29 mmol/L (22.0-30.0); Chloride 104 mmol/L (98-107); Creatinine Clearance Estimated 55 mL/min (50-200); Creatinine,Serum 0.60 mg/dl (0.52-1.04); Estimated Glomerular Filt Rate 101 ml/min (>60); GFR (African American) 122 ML/MIN (>60); Globulin 2.9 g/dL (1.3-3.2); Glucose 115 mg/dl (74-100); Potassium 3.9 mmoL/L (3.5-5.1); Sodium 141 mmol/L (136-145); Total Protein,Serum 7.2 g/dl (6.3-8.2)
[2025-01-13 13:32] LABS: Hematocrit 37.9 % (37.0-47.0); Hemoglobin 12.5 g/dL (12.2-16.2); Immature Granulocytes % 0.4 %; Mean Corpuscular HGB Conc 33.0 g/dL (31.8-35.4); Mean Corpuscular Hemoglobin 29.3 pg (27.0-31.2); Mean Corpuscular Volume 89.0 fl (81-99); Nucleated Red Blood Cells % 0 %; Platelet Count 267 K/mm3 (142-424); Red Blood Count 4.26 M/mm3 (4.20-5.40); Red Cell Distribution Width-SD 44.5 fL; White Blood Count 6.8 K/mm3 (4.8-10.8)
[2025-01-13 13:45] LABS: HCG Qualitative, Serum Negative (Negative)
== END 2025-01-13 23:59 | disposition home or self-care (01) ==
LOC: PREOP 12:40
PROVIDERS: PCP Family Medicine; Visit Provider Obstetrics & Gynecology
DX: Z01.810 Encounter for preprocedural cardiovascular examination (principal); Z01.812 Encounter for preprocedural laboratory examination; R94.31 Abnormal electrocardiogram [ECG] [EKG]
CPT/HCPCS: 80053; 84703; 85025; 93005

== ENCOUNTER 2025-01-19 06:46 | Day surgery (SDC) | payer MEDICAID, SELFPAY ==
[2025-01-13 13:48] VITALS: BMI 41.3
[2025-01-19 08:06] VITALS: BP 138/88; PULSE 58; RESP 16; TEMP 36.1; O2SAT 99; BMI 41.3
[2025-01-19] MEDS: LACTATED RINGERS 1000ML 1,000 ML 25 ML IV (08:23)
--- NOTE | 2025-01-19 09:43 | EXP.ANES.CKL ---
[facility] Disclaimer: The information contained in this section may have been updated after the patient was seen, as this information can be updated by other users. Medical History Asthma Decreased sensation of foot Callus of foot Foreign body entering through skin Cellulitis of left foot Onychomycosis Normal colonoscopy Vaginitis RLS (restless legs syndrome) Migraines Diverticulitis Abnormal EKG Bilateral arm pain Sinus bradycardia Chest pain Cervical spondylosis Sciatic nerve pain Hypertension Surgical History History of hernia repair History of Family History Family/Other No problems noted. Other Family history of cancer Family history of diabetes mellitus Family history of heart disease Social History (Updated 01/19/25 @ 08:07 by Karie Kate RN) Smoking Status: Never smoker alcohol intake: never substance use type: denies use current occupational status: retired Travel in the last 8 weeks?: None household members: spouse housing: house caffeine: Yes Have you lived/traveled outside US in past 30 days?: No Contact w/someone who lives/traveled outside US past 30 days?: No Exposure to someone with infectious disease in past 14 days?: No Do you have a fever (greater than 100.4 F or 38 C)?: No Have you tested positive for COVID-19?: No Exposed to someone with COVID-19 in past 14 days?: No Do you have a sore throat?: No Do you have a cough?: No Do you have any weakness?: No Are you experiencing any nausea/vomitting?: No Do you have any diarrhea?: No Are you experiencing any unusual bleeding?: No Do you have any muscle aches/pain?: No Do you have any abdominal pain?: No Are you experiencing loss of taste or smell?: No [facility] Anesthesia Checklist Patient Identification Patient Identification: Arm Band and Verbal (Name & ) Structural Data Admitted From: Home Planned Operative Procedure/s: Pap smear test Consent for Planned Operative Procedure(s) Verified: Yes Verified Documents: Surgical Consent NPO Status Verified Time NPO: 00:00 Chart Verification Results Verified: ECG Additional verifications Anesthesia Reactions: No Airway Assessment Mallampati Score:: Class II C-Spine Mobility Assessed: Yes TMJ Mobility Assessed: Yes Dentition: Good Dentition Neurological Assessment Level of Consciousness: Awake, Alert and Appropriate Hx Seizures: No Numbness or tingling in extremities: No Anesthesia Plan Anesthesia Risk discussed: Yes Anesthesia Plan: Verified ASA Class: III Anesthesia Type: MAC
[2025-01-19 09:48] VITALS: BP 118/72; PULSE 57; RESP 15; TEMP 36.1; O2SAT 99
[2025-01-19 10:03] VITALS: BP 122/81; PULSE 54; RESP 18; TEMP 36.1; O2SAT 99
--- NOTE | 2025-01-19 10:10 | EXP.OP.NOTE ---
Date of procedure: 01/19/25 Pre-op Diagnosis:: 1. Cervical cancer screening Post-op Diagnosis:: 1. Cervical cancer screening Procedure performed:: Pap smear under anesthesia Surgeon:: Gayatri Noriega DO Help Desk Administrator(s):: N/a WASH HOUSE SUPERVISOR:: Mj Alicia Anesthesia: MAC Estimated blood loss (mL): 0 Clinical Note:: Ms Hayley Guajardo is a 64 yo female who presents to [facility] for scheduled procedure. She presented to the office for pap smear and annual exam but unable perform pap smear secondary to patient discomfort and redundant vaginal tissue. Discussed pap smear under MAC. She would like to proceed this route. Last period was about 20 years ago. Denies history of abnormal pap smears. Operative findings:: 1. Uterus small, normal shape and midposition. No adnexal masses palpated but exam limited secondary to body habitus 2. Postmenopausal cervix appeared grossly normal 3. Stage 3 rectocele in dorsal lithotomy position at rest Operative note:: She was wheeled back to the operating room and placed under MAC without difficulty. Bimanual exam was performed. See findings as above. She was placed in dorsal lithotomy position. A speculum was placed in the vagina. Pap smear was performed without difficulty. Patient was awaken from anesthesia without difficulty. She was transported to recovery room in stable condition. Patient will be discharged home when awake and ambulating. The office will call patient with pap results. Condition: stable Disposition: same day Specimens:: 1 Cervical cytology for pap smear Complications:: None
[2025-01-19 10:18] VITALS: BP 113/65; PULSE 54; RESP 20; TEMP 36.1; O2SAT 99
== END 2025-01-19 10:30 | disposition home or self-care (01) ==
PROVIDERS: PCP Family Medicine; Visit Provider Obstetrics & Gynecology
PROC: (CPT 57410; principal; 2025-01-19 09:30)
DX: Z12.4 Encounter for screening for malignant neoplasm of cervix (principal); I10 Essential (primary) hypertension; J45.909 Unspecified asthma, uncomplicated; Z88.5 Allergy status to narcotic agent; Z88.0 Allergy status to penicillin; N81.6 Rectocele
CPT/HCPCS: 57410; J2003; J2704; J3010; J7120

== ENCOUNTER 2025-01-28 14:00 | Outpatient (CLI) | payer MEDICAID, SELFPAY | END 2025-01-28 23:59 | disposition home or self-care (01) | LOC: LAB.DROPOF 01-29 14:08 | PROVIDERS: PCP Family Medicine; Visit Provider Family Medicine | DX: R31.9 Hematuria, unspecified (principal) | CPT/HCPCS: 87086; 87088 ==

== ENCOUNTER 2025-01-29 12:18 | Outpatient (CLI) | payer MEDICAID, SELFPAY | END 2025-01-29 23:59 | LOC: LAB.DROPOF 02-02 12:18 | PROVIDERS: PCP Family Medicine; Visit Provider Nurse Practitioner | DX: R35.0 Frequency of micturition (principal) | CPT/HCPCS: 87086; 87088; 87186 ==

== ENCOUNTER 2025-02-08 08:56 | Emergency (ER) | payer MEDICAID, SELFPAY ==
[2025-02-08] VITALS (10 sets, daily range): BP systolic 103–146; BP diastolic 67–85; PULSE 60–70; RESP 15–16; TEMP 36.6–36.8; O2SAT 97–100; BMI 40.7
--- NOTE | 2025-02-08 09:15 | CA_ITS ---
FINAL REPORT TECHNIQUE: Multiple transverse and longitudinal images were performed of right the femoral-popliteal deep venous system with augmentation and compression maneuvers. CLINICAL HISTORY: EDEMA AND PAIN RT KNEE X 4 DAYS,NKI FINDINGS: Right lower extremity duplex ultrasound demonstrates normal flow in the deep venous system. There is no abnormal echogenicity to suggest thrombus. There is normal compression and augmentation. IMPRESSION: No evidence of right DVT. Reviewed, Interpreted and Dictated by Kurtis Ruby MD Transcribed by Racquel Ritter Authenticated and [facility]
--- NOTE | 2025-02-08 09:15 | XR_ITS ---
PROCEDURE INFORMATION: Exam: XR Right Knee Exam date and time: 02/08/2025 9:37 AM Age: 64 years old Clinical indication: Pain; Knee; Right; Additional info: Pain, posterior knee TECHNIQUE: Imaging protocol: Radiologic exam of the right knee. Views: 1 or 2 views. COMPARISON: CR XR FOOT WT BEARING RT 3V 05/24/2023 2:50 PM FINDINGS: Bones/joints: There is no gross joint effusion. There is moderate medial compartment osteoarthritis. There is [id number] lateral compartment osteoarthritis. There is mild patellofemoral compartment osteoarthritis. No acute fracture. Soft tissues: The soft tissues are unremarkable. IMPRESSION: 1. No visible acute skeletal pathology. 2. Arthritis as described.
--- NOTE | 2025-02-08 09:17 | HMH.EDGENADL ---
Discharge Plan Disposition Patient Disposition: Home, Self-Care Prescriptions Prescriptions: New methocarbamol 750 mg tablet 750 mg PO QID PRN (Reason: muscle spasm) Qty: 30 0RF lidocaine 5 % adhesive patch,medicated 1 patch topical DAILY Qty: 15 0RF Rx Instructions: leave on most painful area for up to 12 hrs No Action mupirocin [Centany] 2 % ointment 1 applic topical TID Qty: 15 0RF albuterol sulfate 90 mcg/actuation HFA aerosol inhaler See Rx Instructions .ROUTE .COMPLEX Qty: 18 10RF Dose Instruction: INHALE 1 PUFF BY MOUTH EVERY 4 TO 6 HOURS NEEDED FOR SHORTNESS OF BREATH OR WHEEZING Rx Instructions: INHALE 1 PUFF BY MOUTH EVERY 4 TO 6 HOURS NEEDED FOR SHORTNESS OF BREATH OR WHEEZING propranolol 60 mg capsule,extended release 24 hr 60 mg PO QHS Patient Comments: Patient takes Rx 3 times weekly furosemide 40 mg tablet PO Patient Comments: TAKE 1 TABLET BY MOUTH ONCE A DAY NEEDED FOR EDEMA ropinirole 1 mg tablet PO Patient Comments: TAKE 1 TABLET BY MOUTH AT BEDTIME FOR 7 DAYS. THEN increase TO two tablets AT BEDTIME if not effective sumatriptan succinate 100 mg tablet PO Patient Comments: TAKE 1 TABLET BY MOUTH AT ONSET OF MIGRAINE. MAY REPEAT ONCE AFTER 2 HOURS IF NEEDED, MAX OF 2 IN 24 HOURS PNV no.95-ferrous fumarate-FA [] 28 mg iron- 800 mcg tablet PO Patient Comments: TAKE 1 TABLET BY MOUTH ONCE A DAY ciprofloxacin HCl [Cipro] 500 mg tablet 500 mg PO BID Qty: 20 0RF nitrofurantoin monohyd/m-cryst [Macrobid] 100 mg capsule 100 mg PO Q12H 5 Days Qty: 10 0RF Rx Instructions: must administer with a meal/food albuterol sulfate 2.5 mg /3 mL (0.083 %) solution for nebulization See Rx Instructions .ROUTE .COMPLEX Qty: 180 0RF Dose Instruction: INHALE CONTENTS OF 1 VIAL VIA NEBULIZER UP TO FOUR TIMES A DAY NEEDED FOR SHORTNESS OF AIR Rx Instructions: INHALE CONTENTS OF 1 VIAL VIA NEBULIZER UP TO FOUR TIMES A DAY NEEDED FOR SHORTNESS OF AIR ketoconazole 2 % cream See Rx Instructions .ROUTE .COMPLEX Qty: 30 2RF Dose Instruction: APPLY TO THE AFFECTED AREA(S) 2 TIMES A DAY FOR FUNGAL INFECTION Rx Instructions: APPLY TO THE AFFECTED AREA(S) 2 TIMES A DAY FOR FUNGAL INFECTION fluconazole 150 mg tablet 150 mg PO Q3D Qty: 2 0RF Rx Instructions: Take one now and wait 3 days (72hrs) and may take dose again ergocalciferol (vitamin D2) 1,250 mcg (50,000 unit) capsule See Rx Instructions .ROUTE .COMPLEX Qty: 5 3RF Dose Instruction: TAKE ONE CAPSULE BY MOUTH EVERY WEEK Rx Instructions: TAKE ONE CAPSULE BY MOUTH EVERY WEEK methocarbamol 500 mg tablet 500 mg PO HS Qty: 30 0RF Referrals Follow up/Referrals: Ryan Hebert MD [Primary Care Provider, Family Practice] - See instructions Activity Restrictions/Add. Instructions Additional Instructions/Restrictions: Your x-ray showed some arthritis in the knee. You do not have a blood clot. You likely have a muscle strain. I encourage you to take Tylenol and ibuprofen to help with your symptoms as well as the muscle relaxer prescribed to you. You can use the lidocaine patches to help with your symptoms as well. You can use ice packs and heating pads on the area to help with your symptoms. If you develop any new or worsening symptoms, or if you become concerned for your help for any reason, return to the emergency department for evaluation. Otherwise, follow-up with your primary doctor as needed. Clinical Impressions Clinical Impression: Leg pain, right Print Language Print Language: Russian Discharge ED Provider: Wallace Angulo Adult HPI General Chief complaint: PAIN Stated complaint: swelling/pain in right leg x4 Time Seen by Provider: 02/08/25 09:10 Mode of Arrival: Wheelchair Source of Information: Patient Description of Symptoms (Recalled from ER Triage Doc. by RN): natalie states her right leg has been hurting for 4 days so stiff she cant straighten it out and barley walk on it. she denies any falls or injuries. no histiry of blood clots and not on any blood thinners History of Present Illness HPI narrative: Hayley Guajardo is a 64y female with a history of hypertension, restless leg syndrome, , hernia repair who presents to the emergency department for complaints of right lower extremitie pain and swelling. Patient states that she was put on a medication for yeast infection a few days ago and ever since has had right lower extremity pain. She states that the pain starts in her knee and shoots up into the thigh and down into the calf. She states that the pain is on the front and the back of her knee. She has been able to walk on it but is painful to do so. She does not know if she has a muscle strain or blood clot. She denies any falls or trauma to the area. She denies any history of blood clots. Related Data Home Medications ?Medication ?Instructions ?Recorded ?Confirmed propranolol 60 mg capsule,24 60 mg PO QHS 06/09/24 01/29/25 hr,extended release furosemide 40 mg tablet mg PO 01/28/25 01/29/25 vit no.95-ferrous tab PO 01/28/25 01/29/25 fumarate 28 mg-folic acid 800 mcg tablet () ropinirole 1 mg tablet mg PO 01/28/25 01/29/25 sumatriptan succinate 100 mg tablet mg PO 01/28/25 01/29/25 Previous Rx's ?Medication ?Instructions ?Recorded albuterol sulfate 90 mcg/actuation See Rx Instructions .Route 02/12/24 aerosol inhaler .COMPLEX #18 grams methocarbamol 500 mg tablet 500 mg PO HS #30 tabs 06/27/24 albuterol sulfate 2.5 mg/3 mL See Rx Instructions .Route 09/15/24 (0.083 %) solution for nebulization .COMPLEX #180 mL mupirocin 2 % topical ointment 1 applic topical TID #15 grams 01/16/25 (Centany) ciprofloxacin HCl 500 mg tablet 500 mg PO BID #20 tabs 01/29/25 (Cipro) nitrofurantoin 100 mg PO Q12H 5 days #10 caps 01/29/25 monohydrate/macrocrystals 100 mg capsule (Macrobid) fluconazole 150 mg tablet 150 mg PO Q3D 2 doses #2 tabs 02/02/25 ketoconazole 2 % topical cream See Rx Instructions .Route 02/02/25 .COMPLEX #30 grams ergocalciferol (vitamin D2) 1,250 See Rx Instructions .Route 02/06/25 mcg (50,000 unit) capsule .COMPLEX #5 caps lidocaine 5 % topical patch 1 patch topical DAILY #15 ea 02/08/25 methocarbamol 750 mg tablet 750 mg PO QID PRN muscle spasm #30 02/08/25 tabs Allergies Allergy/AdvReac Type Severity Reaction Status Date / Time hydrocodone (HYDROCODONE) Allergy Mild Nightmare Verified 01/29/25 13:31 Penicillins (PENICILLINS) Allergy Mild Rash Verified 01/29/25 13:31 [facility] Disclaimer: The information contained in this section may have been updated after the patient was seen, as this information can be updated by other users. Medical History (Updated 02/08/25 @ 12:27 by Wallace Angulo MD) UTI (urinary tract infection) Asthma Decreased sensation of foot Callus of foot Foreign body entering through skin Cellulitis of left foot Onychomycosis Normal colonoscopy Vaginitis RLS (restless legs syndrome) Migraines Diverticulitis Abnormal EKG Bilateral arm pain Sinus bradycardia Chest pain Cervical spondylosis Sciatic nerve pain Hypertension Surgical History History of hernia repair History of Family History Family/Other No problems noted. Other Family history of cancer Family history of diabetes mellitus Family history of heart disease Social History Smoking Status: Never smoker alcohol intake: never substance use type: denies use current occupational status: retired Travel in the last 8 weeks?: None household members: spouse housing: house caffeine: Yes Have you lived/traveled outside [place] in past 30 days?: No Contact w/someone who lives/traveled outside [place] past 30 days?: No Exposure to someone with infectious disease in past 14 days?: No Do you have a fever (greater than 100.4 F or 38 C)?: No Have you tested positive for COVID-19?: No Exposed to someone with COVID-19 in past 14 days?: No Do you have a sore throat?: No Do you have a cough?: No Do you have any weakness?: No Do you have any diarrhea?: No Are you experiencing any unusual bleeding?: No Do you have any muscle aches/pain?: No Do you have any abdominal pain?: No Are you experiencing loss of taste or smell?: No Other Medical History Have you received the Flu Vaccine for this season: No Have you received the Pneumonia Vaccine: No ROS Obtained: Yes Systems reviewed as appropriate & no additional complaints except as documented Physical Exam General General appearance: alert and in no apparent distress Head Head exam: atraumatic Eye Eye exam: Present normal appearance ENT ENT exam: Present normal external ear exam Neck Neck exam: Present full ROM Chest Chest inspection: Present symmetric chest wall rise Respiratory Respiratory exam: Present normal lung sounds bilaterally; Absent respiratory distress, wheezes or stridor Cardiovascular Cardiovascular exam: Present regular rate and normal rhythm Abdominal Exam Abdominal exam: Present soft; Absent distention, tenderness, guarding or rigidity Extremities Exam Extremities exam: Present normal inspection Expanded Lower Extremity Exam Right: Comment: Right lower extremity: Tenderness over the anterior knee without deformity. Flexor and extension function intact, however limited secondary to pain in the knee. 2+ DP and PT pulses. Sensation grossly intact. Back Exam Back exam: Present normal inspection Neurological Exam Neurological exam: Present alert and oriented X3 Psychiatric Psychiatric exam: Present normal affect Skin Skin exam: Present warm and dry Medical Decision Making Medical Records Screening: Per USPSTF and CDC recommendations, given the prevalence of disease in our region, it is our hospital?s policy to screen for HIV and viral Hepatitis for all patients aged 18 and over and those with ongoing risk factors. Olu Inquiry Pt receiving controlled substance: No Vital Signs: 02/08/25 09:06 02/08/25 09:10 02/08/25 09:30 Temperature 97.8 F Temperature Source Oral Pulse Rate 66 70 Pulse Rate [Right Radial] 67 Respiratory Rate 15 Blood Pressure 146/74 H 130/80 Blood Pressure [Right Arm] 146/74 H Blood Pressure Mean [Right Arm] 98 Blood Pressure Source Blood Pressure Source [Right Arm] Automatic Cuff Blood Pressure Position Blood Pressure Position [Right Arm] Supine 02 Sat by Pulse Oximetry 99 100 99 Oxygen Delivery Method Room Air Room Air Room Air 02/08/25 10:01 02/08/25 10:15 02/08/25 10:31 Temperature Temperature Source Pulse Rate 65 64 65 Pulse Rate [Right Radial] Respiratory Rate Blood Pressure 103/67 L 118/80 Blood Pressure [Right Arm] Blood Pressure Mean [Right Arm] Blood Pressure Source Blood Pressure Source [Right Arm] Blood Pressure Position Blood Pressure Position [Right Arm] 02 Sat by Pulse Oximetry 98 97 97 Oxygen Delivery Method Room Air Room Air Room Air 02/08/25 11:00 02/08/25 11:31 02/08/25 12:08 Temperature Temperature Source Pulse Rate 62 62 61 Pulse Rate [Right Radial] Respiratory Rate Blood Pressure 116/74 124/78 138/85 Blood Pressure [Right Arm] Blood Pressure Mean [Right Arm] Blood Pressure Source Blood Pressure Source [Right Arm] Blood Pressure Position Blood Pressure Position [Right Arm] 02 Sat by Pulse Oximetry 100 99 98 Oxygen Delivery Method Room Air Room Air Room Air 02/08/25 12:50 Temperature 98.2 F Temperature Source Oral Pulse Rate 60 Pulse Rate [Right Radial] Respiratory Rate 16 Blood Pressure 128/82 Blood Pressure [Right Arm] Blood Pressure Mean [Right Arm] Blood Pressure Source Automatic Cuff Blood Pressure Source [Right Arm] Blood Pressure Position Supine Blood Pressure Position [Right Arm] 02 Sat by Pulse Oximetry Oxygen Delivery Method Room Air Lab Data Lab Results 02/08/25 09:24: WBC 9.6, RBC 4.58, Hgb 13.1, Hct 40.9, MCV 89.3, MCH 28.6, MCHC 32.0, RDW 13.5, Plt Count 271, MPV 9.8, Neut % (Auto) 69.7, Lymph % (Auto) 22.6, Dukes % (Auto) 6.0, Eos % (Auto) 1.0, Baso % (Auto) 0.5, Neut # (Auto) 6.7, Lymph # (Auto) 2.2, Dukes # (Auto) 0.6, Eos # (Auto) 0.1, Baso # (Auto) 0.1, PT 10.9, INR 0.98, APTT 25.4, Sodium 138, Potassium 4.1, Chloride 100, Carbon Dioxide 31 H, Anion Gap 11.1, BUN 14, Creatinine 0.60, Estimated Creat Clear 106, Estimated GFR 101, Est GFR ( Amer) 122, Glucose 106 H, Calcium 8.9, Total Bilirubin 0.2, AST 24, ALT 17, Alkaline Phosphatase 115, Total Creatine Kinase 66, Total Protein 8.3 H, Albumin 4.4, Globulin 3.9 H, Albumin/Globulin Ratio 1.1 02/08/25 09:24 02/08/25 09:24 Orders (Tests/Meds): ED MEDICATIONS Discontinued Medications Generic Name Dose Route Start Last Admin Trade Name Freq PRN Reason Stop Dose Admin Acetaminophen 1,000 mg 02/08/25 09:15 02/08/25 09:32 Acetaminophen 500mg Tab PO 02/08/25 09:16 1,000 mg ONCE ONE Administration Ibuprofen 600 mg 02/08/25 09:15 02/08/25 09:31 Ibuprofen 600 Mg Tablet PO 02/08/25 09:16 600 mg ONCE ONE Administration Methocarbamol 500 mg 02/08/25 09:17 02/08/25 09:32 Methocarbamol 500mg Tablet PO 02/08/25 09:18 500 mg ONCE ONE Administration Oxycodone HCl 5 mg 02/08/25 12:26 02/08/25 12:41 Oxycodone 5mg Immediate Release Tablet PO 02/08/25 12:27 5 mg ONCE ONE Administration ORDERS Category Date Time Status Knee XR right 2 views [XR knee RT 2V] Stat Exams 02/08/25 09:15 Completed CBC w/Auto Diff [Complete Blood Count Auto Diff] Stat Lab 02/08/25 09:24 Completed CK [Creatine Kinase] Stat Lab 02/08/25 09:24 Completed CMP [Comprehensive Metabolic Panel] Stat Lab 02/08/25 09:24 Completed PT INR [Prothrombin Time INR] Stat Lab 02/08/25 09:24 Completed PTT [Activated Partial Thrombo Time] Stat Lab 02/08/25 09:24 Completed CA venous doppler LE RT Stat Y 02/08/25 09:15 Completed Medical Decision Narrative: Hayley Guajardo is a 64y female with a history of hypertension, restless leg syndrome, , hernia repair who presents to the emergency department for complaints of right lower extremitie pain and swelling. Patient states that she was put on a medication for yeast infection a few days ago and ever since has had right lower extremity pain. She states that the pain starts in her knee and shoots up into the thigh and down into the calf. She states that the pain is on the front and the back of her knee. She has been able to walk on it but is painful to do so. She does not know if she has a muscle strain or blood clot. She denies any falls or trauma to the area. She denies any history of blood clots. On arrival, patient is hemodynamically stable, in no acute distress, breathing comfortably on room air. Physical exam, as stated above, reveals an overall well-appearing female in no distress. She has tenderness over the right knee without deformity, erythema. It does not appear significantly swollen compared to the left leg. She has 2+ PT and DP pulses. Sensation grossly intact. She has not taken any medication for her symptoms. Differential diagnosis includes, but is not limited to: DVT, fracture, muscle strain, rhabdomyolysis, restless leg syndrome, among others. The most morbid conditions were considered and workup was based on these. Workup in the emergency department included: CK, CBC with differential, CMP, PT/INR, PTT, right knee x-ray, venous Doppler right lower extremity. Patient symptoms were treated with 1 g oral Tylenol, 600 milligrams oral ibuprofen and 500 mg Robaxin. Laboratory workup was unremarkable nonactionable. X-ray imaging was interpreted by me personally. There is evidence of mild arthritis but no fracture or dislocation. See radiology report for details. DVT ultrasounds interpreted by me personally and there is no evidence of DVT. Given patient's unremarkable workup here, I do feel that her symptomatology is likely musculoskeletal in nature and will improve over time. Recommended, Tylenol ibuprofen, Robaxin and lidocaine patches. Instructed her to follow-up with her primary care physician. Return precautions were given. All questions were answered. She demonstrated understanding and was in agreement with this plan. She was then discharged from the emergency department in stable condition. Critical Care Critical Care Time Critical Care Time: No
[2025-02-08] MEDS: IBUPROFEN 600 MG TABLET PO (09:31)
[2025-02-08] MEDS: ACETAMINOPHEN 500MG TAB 1000 MG PO (09:32)
[2025-02-08] MEDS: METHOCARBAMOL 500MG TABLET 500 MG PO (09:32)
[2025-02-08 09:34] LABS: Hematocrit 40.9 % (37.0-47.0); Hemoglobin 13.1 g/dL (12.2-16.2); Immature Granulocytes % 0.2 %; Mean Corpuscular HGB Conc 32.0 g/dL (31.8-35.4); Mean Corpuscular Hemoglobin 28.6 pg (27.0-31.2); Mean Corpuscular Volume 89.3 fl (81-99); Nucleated Red Blood Cells % 0 %; Platelet Count 271 K/mm3 (142-424); Red Blood Count 4.58 M/mm3 (4.20-5.40); Red Cell Distribution Width-SD 44.0 fL; White Blood Count 9.6 K/mm3 (4.8-10.8)
[2025-02-08 09:44] LABS: Albumin Level 4.4 g/dl (3.5-5.0); Chloride 100 mmol/L (98-107); Sodium 138 mmol/L (136-145)
[2025-02-08 09:45] LABS: Potassium 4.1 mmoL/L (3.5-5.1)
[2025-02-08 09:46] LABS: Activated Partial Thrombo Time 25.4 seconds (22.8-30.6); INR 0.98 (0.9-1.1); Prothrombin Time 10.9 seconds (10.1-12.5)
[2025-02-08 09:47] LABS: Alanine Aminotransferase 17 U/L (12-78); Albumin/Globulin Ratio 1.1 (1.1-1.8); Alkaline Phosphatase 115 U/L (38-126); Anion Gap 11.1 mEq/L (5-15); Aspartate Amino Transferase 24 U/L (14-36); Bilirubin,Total 0.2 mg/dl (0.2-1.3); Blood Urea Nitrogen 14 mg/dl (7-17); Carbon Dioxide 31 mmol/L (22.0-30.0); Creatine Kinase 66 U/L (30-135); Creatinine Clearance Estimated 106 mL/min (50-200); Creatinine,Serum 0.60 mg/dl (0.52-1.04); Estimated Glomerular Filt Rate 101 ml/min (>60); GFR (African American) 122 ML/MIN (>60); Globulin 3.9 g/dL (1.3-3.2); Total Protein,Serum 8.3 g/dl (6.3-8.2)
[2025-02-08 09:48] LABS: Calcium 8.9 mg/dl (8.4-10.2); Glucose 106 mg/dl (74-100)
--- NOTE | 2025-02-08 09:50 | PC.NURSE ---
pt rang her call garcia, I went bedside. She was complaining of pain. I helped her reposition for comfort. MD notified of pain. He would like to give the previous pain dose 30 minutes to kick in. no other needs voiced. call garcia in reach.
--- NOTE | 2025-02-08 10:35 | PC.NURSE ---
call made to respiratory to call in delivery person US tech for DVT scan
--- NOTE | 2025-02-08 11:43 | PC.NURSE ---
The tech is bedside to preform the doppler.
[2025-02-08] MEDS: OXYCODONE 5MG IMMEDIATE RELEASE TABLET 5 MG PO (12:41)
== END 2025-02-08 12:51 | disposition home or self-care (01) ==
PROVIDERS: Emergency Provider Student in an Organized Health Care Education/Training Program; PCP Family Medicine
DX: M79.604 Pain in right leg (principal); I10 Essential (primary) hypertension; G25.81 Restless legs syndrome
CPT/HCPCS: 73560; 80053; 82550; 85025; 85610; 85730; 93971; 99284

== ENCOUNTER 2025-02-16 17:34 | Emergency (ER) | payer MEDICAID, SELFPAY ==
[2025-02-16 18:48] VITALS: BP 151/126; PULSE 75; RESP 18; TEMP 37.2; O2SAT 100; BMI 41.5
--- NOTE | 2025-02-16 18:50 | ED_ITS ---
<Statement entered by Wallace Angulo MD - 02/16/25 22:21> I was consulted by the ASYA, and we discussed the complexity of the problems being addressed. I approve the treatment and management plan for this patient's care in the emergency department, thus performing a substantive portion of the medical decision making. Wallace Angulo MD Discharge Plan Disposition Patient Disposition: Home, Self-Care Condition: Good Prescriptions Prescriptions: New methylprednisolone [Medrol (Mark)] 4 mg tablets,dose pack 4 mg PO DAILY Qty: 21 0RF No Action mupirocin [Centany] 2 % ointment 1 applic topical TID Qty: 15 0RF albuterol sulfate 90 mcg/actuation HFA aerosol inhaler See Rx Instructions .ROUTE .COMPLEX Qty: 18 10RF Dose Instruction: INHALE 1 PUFF BY MOUTH EVERY 4 TO 6 HOURS NEEDED FOR SHORTNESS OF BREATH OR WHEEZING Rx Instructions: INHALE 1 PUFF BY MOUTH EVERY 4 TO 6 HOURS NEEDED FOR SHORTNESS OF BREATH OR WHEEZING propranolol 60 mg capsule,extended release 24 hr 60 mg PO QHS Patient Comments: Patient takes Rx 3 times weekly furosemide 40 mg tablet PO Patient Comments: TAKE 1 TABLET BY MOUTH ONCE A DAY NEEDED FOR EDEMA ropinirole 1 mg tablet PO Patient Comments: TAKE 1 TABLET BY MOUTH AT BEDTIME FOR 7 DAYS. THEN increase TO two tablets AT BEDTIME if not effective sumatriptan succinate 100 mg tablet PO Patient Comments: TAKE 1 TABLET BY MOUTH AT ONSET OF MIGRAINE. MAY REPEAT ONCE AFTER 2 HOURS IF NEEDED, MAX OF 2 IN 24 HOURS PNV no.95-ferrous fumarate-FA [] 28 mg iron- 800 mcg tablet PO Patient Comments: TAKE 1 TABLET BY MOUTH ONCE A DAY ciprofloxacin HCl [Cipro] 500 mg tablet 500 mg PO BID Qty: 20 0RF nitrofurantoin monohyd/m-cryst [Macrobid] 100 mg capsule 100 mg PO Q12H 5 Days Qty: 10 0RF Rx Instructions: must administer with a meal/food albuterol sulfate 2.5 mg /3 mL (0.083 %) solution for nebulization See Rx Instructions .ROUTE .COMPLEX Qty: 180 0RF Dose Instruction: INHALE CONTENTS OF 1 VIAL VIA NEBULIZER UP TO FOUR TIMES A DAY NEEDED FOR SHORTNESS OF AIR Rx Instructions: INHALE CONTENTS OF 1 VIAL VIA NEBULIZER UP TO FOUR TIMES A DAY NEEDED FOR SHORTNESS OF AIR ketoconazole 2 % cream See Rx Instructions .ROUTE .COMPLEX Qty: 30 2RF Dose Instruction: APPLY TO THE AFFECTED AREA(S) 2 TIMES A DAY FOR FUNGAL INFECTION Rx Instructions: APPLY TO THE AFFECTED AREA(S) 2 TIMES A DAY FOR FUNGAL INFECTION fluconazole 150 mg tablet 150 mg PO Q3D Qty: 2 0RF Rx Instructions: Take one now and wait 3 days (72hrs) and may take dose again ergocalciferol (vitamin D2) 1,250 mcg (50,000 unit) capsule See Rx Instructions .ROUTE .COMPLEX Qty: 5 3RF Dose Instruction: TAKE ONE CAPSULE BY MOUTH EVERY WEEK Rx Instructions: TAKE ONE CAPSULE BY MOUTH EVERY WEEK lidocaine 5 % adhesive patch,medicated 1 patch topical DAILY Qty: 15 0RF Rx Instructions: leave on most painful area for up to 12 hrs methocarbamol 500 mg tablet 500 mg PO HS Qty: 30 0RF methocarbamol 750 mg tablet 750 mg PO QID PRN (Reason: muscle spasm) Qty: 30 0RF Referrals Follow up/Referrals: Ryan Hebert MD [Primary Care Provider, Family Practice] - See instructions Activity Restrictions/Add. Instructions Additional Instructions/Restrictions: Please return to the emergency department with any worsening redness swelling pain fever or chills, please take your steroid medication as prescribed. I would recommend Tylenol ibuprofen and other anti-inflammatory medications/pain medications as needed for symptomatic relief. Please follow-up with your primary care doctor in the upcoming days. Please consider evaluation for rheumatoid arthritis by oil well perforator operator or your primary care doctor. Clinical Impressions Clinical Impression: Arthralgia of hand, left, Arthralgia of wrist, left Instructions Patient Instructions: DI for Osteoarthritis, DI for Arthralgia, DI for Rheumatoid Arthritis, DI for Joint Pain, DI for Wrist Pain Print Language Print Language: Palestinian Discharge ED Provider: Wallace Angulo Adult HPI General Chief complaint: PAIN Stated complaint: Right Knee and Left hand stiffness and swelling Time Seen by Provider: 02/16/25 18:45 Mode of Arrival: Ambulatory Source of Information: Patient Limitations: No Limitations History of Present Illness HPI narrative: 64-year-old female presents the emergency department with left hand pain, swelling, warm to touch sensation, patient denies any trauma or injury per history, to states that she woke up with it , admits to some subjective numbness and tingling, denies any fever chills chest pain, states that the pain goes up her arm and shoots into her chest , denies any shortness of breath, denies any radicular type symptomatology, denies any neck pain, denies any saddle anesthesia, denies urinary bladder or bowel dysfunction, denies any nausea vomiting constipation diarrhea no urinary type symptomatology, does complain of some right knee pain, walks with a cane at baseline, is being followed by what sounds like orthopedics for this, this is more of a chronic problem for her, denies any alcohol tobacco or drug use, other past medical history is consistent with Crohn's disease, hypertension, osteoarthritis, migraines, RLS, initial triage vitals are unremarkable. Please note that above description of symptoms, in this electronic medical record under categorization of recalled from ER triage doctor by RN are reflective of an initial nursing assessment, however, is not reflective of my full history and physical exam that was personally taken and clarified. Consequentially, this preceding description of symptoms, which may include the patient's categorized chief complaint in the EMR, do not reflect my personal clinical impression, and the ultimate description of history of present illness and patient stated complaints should be deferred to this section of the note. Unless stated otherwise or congruent with this section of the note, additional signs, symptoms, or incongruence should be interpreted as inaccurate with my clinical impression. Onset (ago): hour(s) Related Data Home Medications ?Medication ?Instructions ?Recorded ?Confirmed propranolol 60 mg capsule,24 60 mg PO QHS 06/09/24 hr,extended release furosemide 40 mg tablet mg PO 01/28/25 01/29/25 vit no.95-ferrous tab PO 01/28/25 01/29/25 fumarate 28 mg-folic acid 800 mcg tablet () ropinirole 1 mg tablet mg PO 01/28/25 01/29/25 sumatriptan succinate 100 mg tablet mg PO 01/28/25 Previous Rx's ?Medication ?Instructions ?Recorded albuterol sulfate 90 mcg/actuation See Rx Instructions .Route 02/12/24 aerosol inhaler .COMPLEX #18 grams methocarbamol 500 mg tablet 500 mg PO HS #30 tabs 06/14 08/08 albuterol sulfate 2.5 mg/3 mL See Rx Instructions .Rou te 09/15/24 (0.083 %) solution for nebulization .COMPLEX #180 mL mupirocin 2 % topical ointment 1 applic topical TID #1 5 grams 01/16/25 (Centany) ciprofloxacin HCl 500 mg tablet 500 mg PO BID #20 tabs 01/29/25 (Cipro) nitrofurantoin 100 mg PO Q12H 5 days #10 ca ps 01/29/25 monohydrate/macrocrystals 100 mg capsule (Macrobid) fluconazole 150 mg tablet 150 mg PO Q3D 2 doses #2 tab s 02/02/25 ketoconazole 2 % topical cream See Rx Instructions .Ro [place] 02/02/25 .COMPLEX #30 grams ergocalciferol (vitamin D2) 1,250 See Rx Instructions .Route 02/06/25 mcg (50,000 unit) capsule .COMPLEX #5 caps methocarbamol 750 mg tablet 750 mg PO QID PRN muscle s pasm #30 02/08/25 tabs lidocaine 5 % topical patch 1 patch topical DAILY #15 ea 02/11/25 methylprednisolone 4 mg tablets in 4 mg PO DAILY #21 t abs 02/16/25 a dose pack (Medrol (Mark)) Allergies Allergy/AdvReac Type Severity Reaction Status Date / Time hydrocodone (HYDROCODONE) Allergy Mild Nightmare Verified 01/29/25 13:31 Penicillins (PENICILLINS) Allergy Mild Rash Verified 01/29/25 13:31 [facility] Disclaimer: The information contained in this section may have been updated after the patient was seen, as this information can be updated by other users. Medical History (Updated 02/16/25 @ 21:15 by ANA Smiley) UTI (urinary tract infection) Asthma Decreased sensation of foot Callus of foot Foreign body entering through skin Cellulitis of left foot Onychomycosis Normal colonoscopy Vaginitis RLS (restless legs syndrome) Migraines Diverticulitis Abnormal EKG Bilateral arm pain Sinus bradycardia Chest pain Cervical spondylosis Sciatic nerve pain Hypertension Surgical History History of hernia repair History of Family History Family/Other No problems noted. Other Family history of cancer Family history of diabetes mellitus Family history of heart disease Social History Smoking Status: Never smoker alcohol intake: never substance use type: denies use current occupational status: retired Travel in the last 8 weeks?: None household members: spouse housing: house caffeine: Yes Have you lived/traveled outside [place] in past 30 days?: No Contact w/someone who lives/traveled outside US past 30 days?: No Exposure to someone with infectious disease in past 14 days?: No Do you have a fever (greater than 100.4 F or 38 C)?: No Have you tested positive for COVID-19?: No Exposed to someone with COVID-19 in past 14 days?: No Do you have a sore throat?: No Do you have a cough?: No Do you have any weakness?: No Do you have any diarrhea?: No Are you experiencing any unusual bleeding?: No Do you have any muscle aches/pain?: No Do you have any abdominal pain?: No Are you experiencing loss of taste or smell?: No Other Medical History Have you received the Flu Vaccine for this season: No Have you received the Pneumonia Vaccine: No ROS Obtained: Yes All systems reviewed & no additional complaints except as documented Physical Exam General General appearance: alert, in no apparent distress and anxious Comment: Quite anxious appearing, in obvious pain Head Head exam: atraumatic and normocephalic Eye Eye exam: Present PERRL and EOMI ENT ENT exam: Present mucous membranes moist Neck Neck exam: Present normal inspection Chest Chest inspection: Present normal inspection and symmetric chest wall rise Respiratory Respiratory exam: Present normal lung sounds bilaterally; Absent respiratory distress Cardiovascular Cardiovascular exam: Present regular rate and normal rhythm Abdominal Exam Abdominal exam: Present soft; Absent tenderness, guarding, rebound or rigidity Extremities Exam Extremities exam: Present normal inspection, tenderness and other (Some mild tenderness palpation over the dorsal aspect of the left hand as well as palmar aspect of the left hand and dorsal aspect of the left wrist, there is warm to touch sensation, but no overt erythema, otherwise neurovascular intact, moves fingers to command, but does have some decreased finger); Absent full ROM Neurological Exam Neurological exam: Present alert and oriented X3 Psychiatric Psychiatric exam: Present normal affect Skin Skin exam: Present warm and dry Medical Decision Making Medical Records Medical records reviewed: Yes I reviewed the patient's medical records. Screening: Per USPSTF and CDC recommendations, given the prevalence of disease in our region, it is our hospital?s policy to screen for HIV and viral Hepatitis for all patients aged 18 and over and those with ongoing risk factors. Olu Inquiry Pt receiving controlled substance: No Olu was queried for this patient: No Vital Signs: 02/16/25 18:48 02/16/25 19:40 Temperature 98.9 F 98.4 F Temperature Source Temporal Artery Scan Oral Pulse Rate 74 Pulse Rate [Right] 75 Respiratory Rate 18 17 Blood Pressure 146/78 H Blood Pressure [Right Arm] 151/126 H Blood Pressure Mean [Right Arm] 134 Blood Pressure Source [Right Arm] Automatic Cuff Blood Pressure Position [Right Arm] Sitting 02 Sat by Pulse Oximetry 100 98 Oxygen Delivery Method Room Air Lab Data Lab results reviewed: Yes I reviewed the patient's lab results. Lab Results 02/16/25 19:13: WBC 10.9 H, RBC 4.46, Hgb 13.0, Hct 39.9, MCV 89.5, MCH 29.1, MCHC 32.6, RDW 13.7, Plt Count 283, MPV 9.8, Neut % (Auto) 71.0, Lymph % (Auto) 19.4, [place] % (Auto) 8.1, Eos % (Auto) 0.7, Baso % (Auto) 0.6, Neut # (Auto) 7.8, Lymph # (Auto) 2.1, [place] # (Auto) 0.9, Eos # (Auto) 0.1, Baso # (Auto) 0.1, ESR 76 H, Sodium 138, Potassium 3.7, Chloride 101, Carbon Dioxide 30, Anion Gap 10.7, BUN 14, Creatinine 0.70, Estimated Creat Clear 55, Estimated GFR 84, Est GFR ( Amer) 102, Glucose 109 H, Calcium 9.1, Total Bilirubin 0.5, AST 24, ALT 16, Alkaline Phosphatase 105, Troponin I < 0.01, C-Reactive Protein 29.4 H, NT-Pro-B Natriuret Pep 163 H, Total Protein 8.4 H, Albumin 4.6, Globulin 3.8 H, Albumin/Globulin Ratio 1.2 02/16/25 19:44: Lactate 0.6 L 02/16/25 19:13 02/16/25 19:13 Orders (Tests/Meds): ED MEDICATIONS Discontinued Medications Generic Name Dose Route Start Last Admin Trade Name Jamari PRN Reason Stop Dose Admin Hydromorphone HCl 0.5 mg 02/16/25 20:38 02/16/25 20:47 Hydromorphone 2mg/Ml Syringe IV 02/16/25 20:39 0.5 mg ONCE ONE Administration Iopamidol 75 ml 02/16/25 20:38 02/16/25 20:39 Iopamidol-370 (76%);100ml Bottle IV 02/16/25 20:39 75 ml ONCE ONE Administration Morphine Sulfate 2 mg 02/16/25 19:05 02/16/25 19:38 Morphine 2mg/Ml Syringe IV 02/16/25 19:06 2 mg ONCE ONE Administration Ondansetron HCl 4 mg 02/16/25 19:05 02/16/25 19:37 Ondansetron 4mg/2ml Vial IV 02/16/25 19:06 4 mg ONCE ONE Administration Sodium Chloride 10 ml 02/16/25 20:38 02/16/25 20:39 Sodium Chloride 0.9% 10ml Syr (Rad Only) IV 02/16/25 20:39 10 ml ONCE ONE Administration ORDERS Category Date Time Status CT hand LT w con Stat Cat Scan 02/16/25 19:03 Completed XR hand LT min 3V Stat Exams 02/16/25 19:01 Completed XR wrist LT min 3V Stat Exams 02/16/25 19:03 Completed CRP [C-Reactive Protein] Stat Lab 02/16/25 19:13 Completed Complete Blood Count Auto Diff Stat Lab 02/16/25 19:13 Completed Comprehensive Metabolic Panel Stat Lab 02/16/25 19:13 Completed ESR [Erythrocyte Sedimentation Rate] Stat Lab 02/16/25 19:13 Completed Lactic Acid Stat Lab 02/16/25 19:44 Completed NT Pro Brain Natriuretic Pep. Stat Lab 02/16/25 19:13 Completed Troponin I Q3H Lab 02/16/25 22:15 Ordered Troponin I Q3H Lab 02/17/25 01:15 Ordered Troponin I Stat Lab 02/16/25 19:13 Completed Medical Decision Narrative: 64-year-old female presents the emergency department with left hand pain and swelling, the started today, differential diagnose include but not limited to, rheumatoid arthritis, osteoarthritis, cellulitis, flexor tenosynovitis, osteomyelitis, gouty arthritis, hand sprain/strain, hand fracture, wrist brain/strain, wrist fracture among others. I discussed this patient's case with the attending physician Dr. Angulo he saw and examined the patient as well. Will obtain basic laboratory studies, CRP, ESR, lactic acid level proBNP troponin, EKG, x-rays of the left hand and left wrist, will obtain CT hand left with contrast for further evaluation as characterization, will give 2 mg of morphine for pain and 4 mg Zofran for nausea. CBC is notable for minimal leukocytosis at 10.9 otherwise unremarkable. ESR is mildly elevated at 76 CMP is notable for normal troponin at less than 0.01, proBNP is mildly elevated at 163, CRP is mildly elevated at 29.4 No lactic acidosis. Patient still complaining of pain via nursing staff at approximately 8:30 PM, will give 0.5 mg IV Dilaudid. I reviewed the patient's wrist x-ray and hand x-ray along with corresponding radiologic reports, no acute osseous abnormality, dorsal soft tissue swelling, joint space calcification/truncal calcinosis, severe general arthropathy of first carpometacarpal joint, negative left hand x-ray. I reviewed the patient's CT head and on the left with contrast along the corresponding radiologic report, nonspecific mild subcutaneous edema in the hand and wrist no localized fluid collection or abscess, no acute osseous abnormality osteopenia and degenerative changes. I discussed the results with the patient at bedside, patient has some increased range of motion after pain medication ministration, I do believe the patient may have some underlying rheumatoid arthritis versus osteoarthritis, no obvious cellulitis on exam as well as on imaging studies, no leukocytosis, inflammatory markers elevated but this is nonspecific. Will trial the patient with Medrol Dosepak to see if she gets any symptomatic relief, will give patient p.o. Percocet prior to discharge for pain in the acute phase. Patient was given strict ED return precautions. Patient voiced understanding and agreement with the current treatment plan/discharge plan. Patient follow-up with PCP and possibly oil well perforator operator consultation/referral elicited by primary care doctor. Critical Care Critical Care Time Critical Care Time: No
--- NOTE | 2025-02-16 19:01 | XR_ITS ---
PROCEDURE INFORMATION: Exam: XR Left Hand Exam date and time: 02/16/2025 8:25 PM Age: 64 years old Clinical indication: Pain; Hand; Left; Additional info: Left hand pain/wrist pain TECHNIQUE: Imaging protocol: Radiologic exam of the left hand. Views: 3 or more views. Total images: 3 COMPARISON: CR XR HAND LT MIN 3V 08/17/2023 9:51 AM FINDINGS: Bones/joints: No acute fracture or joint dislocation. Mild degenerative changes throughout the interphalangeal joints. No concerning bone lesions. Soft tissues: Unremarkable soft tissues. IMPRESSION: Negative left hand.
--- NOTE | 2025-02-16 19:03 | CT_ITS ---
PROCEDURE INFORMATION: Exam: CT Left Upper Extremity With Contrast, Hand Exam date and time: 02/16/2025 8:39 PM Age: 64 years old Clinical indication: Other: Left hand/wrist pain and swelling warm to touch TECHNIQUE: Imaging protocol: Computed tomography of the left upper extremity with contrast. Exam focused on the hand. Total images: 723 Radiation optimization: All CT scans at this facility use at least one of these dose optimization techniques: automated exposure control; mA and/or kV adjustment per patient size (includes targeted exams where dose is matched to clinical indication); or iterative reconstruction. Contrast material: ISOVUE; Contrast volume: 75 ml; Contrast route: IV; COMPARISON: CR XR HAND LT MIN 3V 02/16/2025 8:25 PM FINDINGS: Bones/joints: No acute fracture or joint dislocation. Mild degenerative changes throughout the interphalangeal joints. Age-appropriate metacarpophalangeal joint spaces. Severe degenerative change 1st carpometacarpal joint. Mild degenerative change STT joint. Small benign subchondral cyst distal scaphoid. Joint space calcification/chondrocalcinosis of the wrist. Unremarkable distal radius and ulna. Soft tissues: Mild subcutaneous edema in the hand and wrist. No localized fluid collection or abscess. Notes: Limited by very poor contrast opacification. IMPRESSION: 1. Nonspecific mild subcutaneous edema in the hand and wrist. 2. No localized fluid collection or abscess. 3. No acute osseous abnormality 4. Osteopenia and degenerative changes.
--- NOTE | 2025-02-16 19:03 | XR_ITS ---
PROCEDURE INFORMATION: Exam: XR Left Wrist Exam date and time: 02/16/2025 8:25 PM Age: 64 years old Clinical indication: Pain; Wrist; Left; Additional info: Left hand/wrist pain TECHNIQUE: Imaging protocol: Radiologic exam of the left wrist. Views: 3 or more views. Total images: 3 COMPARISON: CR XR HAND LT MIN 3V 08/17/2023 9:51 AM FINDINGS: Bones/joints: Osteopenia. Severe degenerative change 1st carpometacarpal joint. Carpal alignment is maintained. Mild degenerative change STT joint. Benign subchondral cyst in the distal scaphoid. Joint space calcification/chondrocalcinosis. Unremarkable distal radius and ulna. Soft tissues: Dorsal soft tissue swelling. IMPRESSION: 1. No acute osseous abnormality. 2. Dorsal soft tissue swelling. 3. Joint space calcification/chondrocalcinosis 4. Severe degenerative arthropathy 1st carpometacarpal joint.
[2025-02-16 19:23] LABS: Hematocrit 39.9 % (37.0-47.0); Hemoglobin 13.0 g/dL (12.2-16.2); Immature Granulocytes % 0.2 %; Mean Corpuscular HGB Conc 32.6 g/dL (31.8-35.4); Mean Corpuscular Hemoglobin 29.1 pg (27.0-31.2); Mean Corpuscular Volume 89.5 fl (81-99); Nucleated Red Blood Cells % 0 %; Platelet Count 283 K/mm3 (142-424); Red Blood Count 4.46 M/mm3 (4.20-5.40); Red Cell Distribution Width-SD 45.0 fL; White Blood Count 10.9 K/mm3 (4.8-10.8)
[2025-02-16 19:35] LABS: Alanine Aminotransferase 16 U/L (12-78); Albumin Level 4.6 g/dl (3.5-5.0); Albumin/Globulin Ratio 1.2 (1.1-1.8); Alkaline Phosphatase 105 U/L (38-126); Anion Gap 10.7 mEq/L (5-15); Aspartate Amino Transferase 24 U/L (14-36); Bilirubin,Total 0.5 mg/dl (0.2-1.3); Blood Urea Nitrogen 14 mg/dl (7-17); Calcium 9.1 mg/dl (8.4-10.2); Carbon Dioxide 30 mmol/L (22.0-30.0); Chloride 101 mmol/L (98-107); Creatinine Clearance Estimated 55 mL/min (50-200); Creatinine,Serum 0.70 mg/dl (0.52-1.04); Estimated Glomerular Filt Rate 84 ml/min (>60); GFR (African American) 102 ML/MIN (>60); Globulin 3.8 g/dL (1.3-3.2); Glucose 109 mg/dl (74-100); Potassium 3.7 mmoL/L (3.5-5.1); Sodium 138 mmol/L (136-145); Total Protein,Serum 8.4 g/dl (6.3-8.2)
[2025-02-16] MEDS: ONDANSETRON 4MG/2ML VIAL 4 MG IV (19:37)
[2025-02-16] MEDS: MORPHINE 2MG/ML SYRINGE 2 MG IV (19:38)
[2025-02-16 19:39] LABS: C-Reactive Protein 29.4 mg/L (0-4)
[2025-02-16 19:40] VITALS: BP 146/78; PULSE 74; RESP 17; TEMP 36.9; O2SAT 98
[2025-02-16 19:46] LABS: NT Pro Brain Natriuretic Pep. 163 pg/mL (0-125)
[2025-02-16 19:50] LABS: Troponin I < 0.01 ng/ml (0.00-0.034)
[2025-02-16] MEDS: SODIUM CHLORIDE 0.9% 10ML SYR (RAD ONLY) 10 ML IV (20:39)
[2025-02-16] MEDS: IOPAMIDOL-370 (76%);100ML BOTTLE 75 ML IV (20:39)
[2025-02-16] MEDS: HYDROMORPHONE 2MG/ML SYRINGE 0.5 MG IV (20:47)
--- NOTE | 2025-02-16 20:58 | ECG_ITS ---
APPROVED REPORT Exam: Resting ECG HR:80 bpm ECG Measurements Heart Rate 80 AXES VT 157 P 69 QRSd 118 QRS 57 QT 401 T 68 QTc 438 Conclusion SINUS RHYTHM POSSIBLE RIGHT VENTRICULAR CONDUCTION DELAY [RSR (QR) IN V1/V2] BORDERLINE ECG UNCONFIRMED REPORT Normal sinus rhythm. No ST elevation or depression. QTc of 438 Electronically signed by : ALYSE LACEY, 02/19/2025 21:03:07
[2025-02-16 21:19] VITALS: BP 135/78; PULSE 75; RESP 18; TEMP 37.1
[2025-02-16] MEDS: OXYCODONE 5MG W/APAP 325MG TABLET 1 EACH PO (21:25)
== END 2025-02-16 21:32 | disposition home or self-care (01) ==
PROVIDERS: Physician Assistant; Emergency Provider Student in an Organized Health Care Education/Training Program; PCP Family Medicine
DX: M25.532 Pain in left wrist (principal); M25.542 Pain in joints of left hand; M25.561 Pain in right knee; R79.89 Other specified abnormal findings of blood chemistry
CPT/HCPCS: 73110; 73130; 73201; 80053; 83605; 83880; 84484; 85025; 85651; 86140; 93005; 96374; 96375; 99285; J1171; J2270; J2405; Q9967